=== PATIENT | male | born 1945 | race Caucasian/White ===

== ENCOUNTER → 2020-01-12 12:45 | Outpatient (CLI) | payer MEDICARE, SELFPAY ==
--- NOTE | 2020-01-12 12:49 | US_ITS ---
PROCEDURE: US THYROID CLINICAL INDICATION: THYROID NODULE COMPARISON: No exams were available for comparison FINDINGS: Right lobe: The right lobe is 3.4 x 1.2 x 1.2 cm and has an unremarkable appearance. Left lobe: Left lobe is 3.6 x 1.3 x 1.3 cm and contains a. 3 mm cyst Isthmus: Unremarkable Additional findings: Patient reports a palpable nodule in the right neck. This corresponds to a lymph node which measures 19 by 10 by 4mm. The mantle of the node does not appear thickened. IMPRESSION: Palpable nodule in the right neck corresponds to a 19 x 1 by 4 mm lymph node. There is a small left thyroid cyst. The thyroid gland has an otherwise unremarkable appearance Dictated b Haile Tamayo MD 01/12/2020 15:12 Haile Tamayo MD in [place] 01/12/2020 15:12
== END ==
PROVIDERS: PCP Family Medicine; Visit Provider Family Medicine
DX: E04.1 Nontoxic single thyroid nodule (principal)
CPT/HCPCS: 76536

== ENCOUNTER 2021-04-10 11:13 | Emergency (ER) | payer MEDICARE, SELFPAY ==
[2021-04-10] VITALS (10 sets, daily range): BP systolic 99–134; BP diastolic 59–78; PULSE 71–85; RESP 18; TEMP 37.1; O2SAT 93–96; BMI 22.3
--- NOTE | 2021-04-10 12:31 | XR_ITS ---
PROCEDURE: XR CHEST 2V CLINICAL HISTORY: cough COMPARISON: CT NECKW CT SOFT TISSUE NECK W/CONTRAST from 08/31/2015 CR CXR CHEST(2 VIEWS-NOT PORTABLE) from 09/05/2015 FINDINGS: The cardiomediastinal silhouette and pulmonary vascularity are within normal limits. There are chronic changes present. Increased markings are present in the lower lobes and in the right mid upper lung suggesting small areas of patchy infiltrate and/or atelectatic change. No acute bony abnormalities. IMPRESSION: Chronic changes with increased markings in the lower lobes and right midlung zone which could be due to superimposed atelectatic change or infiltrate. Dictated by: Haile Tamayo MD 04/10/2021 13:21 Haile Tamayo MD in [facility] 04/10/2021 13:21
[2021-04-10 12:45] LABS: Basophils # 0.1 K/mm3 (0-0.2); Basophils % 1.7 % (0.1-2.0); Eosinophils % 0.6 % (0.1-12.0); Hematocrit 45.2 % (42.0-52.0); Hemoglobin 14.9 g/dL (14.1-18.0); Lymphocytes # 0.9 K/mm3 (0.7-4.5); Lymphocytes % 22.2 % (10-50); Mean Corpuscular HGB Conc 32.9 g/dL (31.8-35.4); Mean Corpuscular Hemoglobin 33.3 pg (27.0-31.2); Mean Corpuscular Volume 101.2 fl (80-94); Monocytes # 0.5 K/mm3 (0.1-1.0); Monocytes % 11.9 % (1.7-9.3); Neutrophils # 2.6 K/mm3 (1.8-7.8); Neutrophils % 63.6 % (37.0-80.0); Platelet Count 210 K/mm3 (142-424); Red Blood Count 4.47 M/mm3 (4.60-6.20); Red Cell Distribution Width 15.9 % (11.5-17.5); White Blood Count 4.1 K/mm3 (4.8-10.8)
[2021-04-10 12:57] LABS: Chloride 96 mmol/L (98-107); Sodium 132 mmol/L (136-145)
[2021-04-10 12:58] LABS: Potassium 4.1 mmoL/L (3.5-5.1)
[2021-04-10 13:00] LABS: Alanine Aminotransferase 26 U/L (12-78); Albumin Level 3.8 g/dl (3.5-5.0); Albumin/Globulin Ratio 1.4 (1.1-1.8); Alkaline Phosphatase 99 U/L (38-126); Anion Gap 14.1 mEq/L (5-15); Aspartate Amino Transferase 45 U/L (17-59); Bilirubin,Total 0.8 mg/dl (0.2-1.3); Blood Urea Nitrogen 13 mg/dl (9-20); Calcium 8.5 mg/dl (8.4-10.2); Carbon Dioxide 26 mmol/L (22.0-30.0); Creatinine Clearance Estimated 66 mL/min (50-200); Estimated Glomerular Filt Rate 73 ml/min (>60); GFR (African American) 88 ML/MIN (>60); Globulin 2.7 g/dL (1.3-3.2); Glucose 107 mg/dl (74-100); Total Protein,Serum 6.5 g/dl (6.3-8.2)
--- NOTE | 2021-04-10 14:11 | HMH.EDGENADL ---
ED Disposition Clinical Impression: COVID-19 virus infection Disposition: Home, Self-Care Condition on Discharge: Fair Instructions: DI for COVID-19 (Suspected or Confirmed ) Additional Instructions: See Dr. Orantes in his office tomorrow at 11:30 AM. Outpatient monoclonal antibody therapy, you will be called for appointment. Return to the emergency department if any severe shortness of breath. COVID-19 Isolation: Isolate yourself for a MINIMUM of 10 days from onset of symptoms: What to do: Monitor your symptoms. If you have an emergency warning sign (including trouble breathing), seek emergency medical care immediately. Stay in a separate room from other household members, if possible. Use a separate bathroom, if possible. Avoid contact with other members of the household and pets. Don?t share personal household items, like cups, towels, and utensils. Wear a mask when around other people if able. You can be around others AFTER: 10 days since symptoms first appeared AND 24 hours with no fever without the use of fever-reducing medications AND Other symptoms of COVID-19 are improving Referrals: Michael Orantes MD [Primary Care Provider] - - Critical Care Critical Care Time: No Attestation: On 04/10/21, the high probability of a clinically significant, sudden or life threatening deterioration of the following system(s) required my full and direct attention, intervention and personal management. The time I documented below is in addition to time spent performing reported procedures but includes the following listed in this critical care notation. Medical Decision Making - Avtar Inquiry Pt receiving controlled substance: No Vital Signs: 04/10/21 12:00 04/10/21 12:13 04/10/21 12:30 Temperature 98.8 F Temperature Source Oral Pulse Rate 83 76 Pulse Rate [Right Radial] 85 Respiratory Rate 18 Blood Pressure 130/69 114/75 Blood Pressure [Right Arm] 130/69 Blood Pressure Mean 102 92 Blood Pressure Mean [Right Arm] 89 Blood Pressure Source [Right Arm] Automatic Cuff Blood Pressure Position [Right Arm] Sitting 02 Sat by Pulse Oximetry 94 L 93 L 95 Oxygen Delivery Method Room Air 04/10/21 13:00 04/10/21 13:30 04/10/21 14:00 Temperature Temperature Source Pulse Rate 76 76 77 Pulse Rate [Right Radial] Respiratory Rate Blood Pressure 115/71 124/71 125/72 Blood Pressure [Right Arm] Blood Pressure Mean 85 92 91 Blood Pressure Mean [Right Arm] Blood Pressure Source [Right Arm] Blood Pressure Position [Right Arm] 02 Sat by Pulse Oximetry 95 95 94 L Oxygen Delivery Method 04/10/21 14:30 04/10/21 15:30 04/10/21 16:00 Temperature Temperature Source Pulse Rate 76 75 71 Pulse Rate [Right Radial] Respiratory Rate Blood Pressure 134/75 103/64 L 99/59 L Blood Pressure [Right Arm] Blood Pressure Mean 94 71 73 Blood Pressure Mean [Right Arm] Blood Pressure Source [Right Arm] Blood Pressure Position [Right Arm] 02 Sat by Pulse Oximetry 96 93 L 95 Oxygen Delivery Method - Lab Data Lab Results 04/10/21 12:30: WBC 4.1 L, RBC 4.47 L, Hgb 14.9, Hct 45.2, MCV 101.2 H, MCH 33.3 H, MCHC 32.9, RDW 15.9, Plt Count 210, MPV 9.0, Neut % (Auto) 63.6, Lymph % (Auto) 22.2, [place] % (Auto) 11.9 H, Eos % (Auto) 0.6, Baso % (Auto) 1.7, Neut # (Auto) 2.6, Lymph # (Auto) 0.9, [place] # (Auto) 0.5, Eos # (Auto) 0.0, Baso # (Auto) 0.1 04/10/21 12:30: Sodium 132 L, Potassium 4.1, Chloride 96 L, Carbon Dioxide 26, Anion Gap 14.1, BUN 13, Creatinine 1.00, Estimated Creat Clear 66, Estimated GFR 73, Est GFR ( Amer) 88, Glucose 107 H, Calcium 8.5, Total Bilirubin 0.8, AST 45, ALT 26, Alkaline Phosphatase 99, Total Protein 6.5, Albumin 3.8, Globulin 2.7, Albumin/Globulin Ratio 1.4 04/10/21 12:30: Troponin I < 0.01 04/10/21 12:30: Lipase 103 04/10/21 14:25: Lactate 0.8 04/10/21 14:25: SARS-CoV-2 (PCR) Detected A, Influenza A Untype (PCR
--- NOTE | 2021-04-10 14:25 | CT_ITS ---
PROCEDURE: CT HEAD/BRAIN WO CON CLINICAL INDICATION: gait instability COMPARISON: No exams were available for comparison TECHNIQUE: Axial images obtained. All CT scans at the facility use one or more dose reduction, viz: automated exposure control, ma/kV adjustment per patient size (including targeted exams where dose is matched to indication, i.e. head), or iterative reconstruction technique. FINDINGS: No midline shift, mass effect, intracranial hemorrhage, hydrocephalus, or extra-axial fluid collection is evident. There is generalized atrophy with hypoattenuation of the periventricular white matter consistent with microangiopathic changes.. Old lacunar infarction involves the subinsular region on the left the calvarium has an unremarkable appearance. No mastoid effusion. Mucosal thickening involves the maxillary and ethmoid sinuses. There is a tiny air-fluid level in the sphenoid sinus. IMPRESSION: 1. No acute intracranial findings. 2. 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 3. Mild sinus disease Dictated by: Haile Tamayo MD 04/10/2021 15:38 Haile Tamayo MD in [place] 04/10/2021 15:38
--- NOTE | 2021-04-10 14:27 | CT_ITS ---
PROCEDURE: CT ABDOMEN PELVIS W CON CLINICAL INDICATION: abdo discomfort COMPARISON: CR XR CHEST 2V from 04/10/2021 TECHNIQUE: IV Contrast: 75ML Isovue 370 Oral Contrast None Axial images obtained with sagittal and coronal reformats. All CT scans at the facility use one or more dose reduction, viz: automated exposure control, ma/kV adjustment per patient size (including targeted exams where dose is matched to indication, i.e. head), or iterative reconstruction technique. FINDINGS: LOWER THORAX: There is coarsening of the interstitial markings patchy subsegmental areas of infiltrate in lung bases posteriorly ABDOMEN & PELVIS: The liver, gallbladder, spleen, adrenal glands, and pancreas have an unremarkable appearance. No renal or ureteral calculi. No hydronephrosis. No evidence of appendicitis or diverticulitis. There are few colonic diverticula. There is thickening of the urinary bladder wall. There is mild fusiform dilatation of the infrarenal abdominal aorta at the aortic bifurcation measuring 2.8 cm transverse. There is dilatation of the proximal aspect of the left common iliac artery at 1.7 cm. Degenerative disc disease L4-5. There is mild loss of height anteriorly of L1 age indeterminate without retropulsion. IMPRESSION: 1. Coarsening of the interstitial lung markings with patchy subsegmental areas of infiltrate in the lung bases. 2. No acute abdominal or pelvic findings. 3. Mild dilatation of the infrarenal abdominal aorta of 2.8 cm and proximal left common iliac artery of 1.7 cm 4. Minimal wedging L1 age indeterminate Dictated by: Haile Tamayo MD 04/10/2021 15:46 Haile Tamayo MD in [facility] 04/10/2021 15:46
[2021-04-10 14:34] LABS: Influenza A, PCR Not Detected (NotDetected); Influenza B, PCR Not Detected (NotDetected)
[2021-04-10 14:37] LABS: Lipase 103 U/L (23-300)
[2021-04-10 14:38] LABS: Microscopic, Urine URINE MICROSCOPIC (MICROSCOPIC)
[2021-04-10 14:41] LABS: Appearance,Urine CLEAR (Clear); Bilirubin,Urine Negative (Negative); Blood, Urine Negative (Negative); Color,Urine YELLOW (Yellow); Glucose,Urine (UA) Negative (Negative); Ketones,Urine Negative (Negative); Leukocyte Esterase,Urine Negative (Negative); Nitrate,Urine Negative (Negative); Protein,Urine Negative (Negative); Specific Gravity, Urine 1.025 (1.005-1.030); Urobilinogen,Urine 0.2 EU/dl (0.2)
[2021-04-10 14:52] LABS: Lactic Acid 0.8 mmol/L (0.7-2.1)
[2021-04-10 14:53] LABS: Troponin I < 0.01 ng/ml (0.00-0.034)
[2021-04-10 15:05] LABS: Bacteria,Urine 2+ /lpf; RBC,Urine Occasional #/hpf (0-3); Squamous Epithelial Cell,Urine Occasional #/hpf (0-5); WBC,Urine Occasional #/hpf (0-3)
[2021-04-10 15:06] LABS: Coronavirus 19, PCR Detected (NotDetected)
--- NOTE | 2021-04-10 16:43 | ECG_ITS ---
APPROVED REPORT Exam: Resting ECG HR:77 bpm ECG Measurements Heart Rate 77 AXES DE 220 P 57 QRSd 104 QRS -52 QT 396 T 54 QTc 448 Conclusion Sinus rhythm with 1st degree AV block Left anterior fascicular block Abnormal ECG Electronically signed by : Michael Petersen MD 04/13/2021 13:55:31
--- NOTE | 2021-04-10 16:57 | PC.NURSE ---
pt given scheduled time for antibody infusion for Tomorrow 04/11/21 at 11 am, information given to pt .
== END 2021-04-10 17:22 | disposition home or self-care (01) ==
PROVIDERS: Emergency Provider Emergency Medicine; PCP Family Medicine
DX: U07.1 COVID-19 (principal)
CPT/HCPCS: 70450; 71046; 74177; 80053; 81001; 83605; 83690; 84484; 85025; 87040; 87077; 87086; 87186; 93005; 96374; 99284; C9803; Q9967; U0003; U0005

== ENCOUNTER → 2022-04-09 10:39 | Outpatient (CLI) | payer MEDICARE, SELFPAY ==
--- NOTE | 2022-04-09 | ECG_ITS ---
APPROVED REPORT Exam: Resting ECG HR:59 bpm ECG Measurements Heart Rate 59 AXES ME 230 P 64 QRSd 111 QRS 12 QT 432 T 37 QTc 430 Conclusion SINUS BRADYCARDIA WITH FIRST DEGREE AV BLOCK Late R wave progression, previously noted ABNORMAL ECG UNCONFIRMED REPORT Electronically signed by : Michael Petersen MD 04/09/2022 18:07:27
[2022-04-09 11:22] LABS: Basophils # 0.2 K/mm3 (0-0.2); Eosinophils # 0.3 K/mm3 (0.0-0.4); Eosinophils % 4.3 % (0.1-12.0); Hematocrit 49.5 % (42.0-52.0); Hemoglobin 15.2 g/dL (14.1-18.0); Lymphocytes # 1.5 K/mm3 (0.7-4.5); Lymphocytes % 23.3 % (10-50); Mean Corpuscular HGB Conc 30.8 g/dL (31.8-35.4); Mean Corpuscular Hemoglobin 32.4 pg (27.0-31.2); Mean Corpuscular Volume 105.4 fl (80-94); Mean Platelet Volume 8.4 fl (7.4-10.4); Monocytes # 0.6 K/mm3 (0.1-1.0); Monocytes % 9.5 % (1.7-9.3); Platelet Count 265 K/mm3 (142-424); Red Cell Distribution Width 16.7 % (11.5-17.5); White Blood Count 6.6 K/mm3 (4.8-10.8)
[2022-04-09 12:03] LABS: Chloride 100 mmol/L (98-107); Potassium 4.8 mmoL/L (3.5-5.1); Sodium 143 mmol/L (136-145)
[2022-04-09 12:05] LABS: Alanine Aminotransferase 25 U/L (12-78); Alkaline Phosphatase 123 U/L (38-126); Aspartate Amino Transferase 38 U/L (17-59); Bilirubin,Total 0.9 mg/dl (0.2-1.3); Blood Urea Nitrogen 10 mg/dl (9-20); Estimated Glomerular Filt Rate 82 ml/min (>60); GFR (African American) 99 ML/MIN (>60)
[2022-04-09 12:06] LABS: Albumin Level 4.5 g/dl (3.5-5.0); Albumin/Globulin Ratio 1.6 (1.1-1.8); Anion Gap 15.8 mEq/L (5-15); Calcium 9.6 mg/dl (8.4-10.2); Carbon Dioxide 32 mmol/L (22.0-30.0); Globulin 2.8 g/dL (1.3-3.2); Glucose 103 mg/dl (74-100); Total Protein,Serum 7.3 g/dl (6.3-8.2)
== END ==
PROVIDERS: PCP Family Medicine; Visit Provider Family Medicine
DX: Z01.818 Encounter for other preprocedural examination (principal)
CPT/HCPCS: 36415; 80053; 85025; 93005

== ENCOUNTER → 2023-03-03 16:24 | Outpatient (CLI) | payer MEDICARE, SELFPAY ==
--- NOTE | 2023-03-03 16:29 | XR_ITS ---
PROCEDURE INFORMATION: Exam: XR Left Shoulder Exam date and time: 03/03/2023 4:31 PM Age: 77 years old Clinical indication: Pain; Shoulder; Left; Additional info: Lt shoulder pain TECHNIQUE: Imaging protocol: Radiologic exam of the left shoulder. Views: 2 or more views. COMPARISON: CR XR CHEST 2V 04/10/2021 12:31 PM FINDINGS: Bones/joints: Postsurgical changes are seen involving the left shoulder joint. No evidence of hardware complication. Lungs: Mild interstitial opacities are noted in the left lung. Soft tissues: Normal. IMPRESSION: Postsurgical changes are seen involving the left shoulder joint. No evidence of hardware complication.
== END ==
PROVIDERS: PCP Family Medicine; Visit Provider Family Medicine
DX: M25.512 Pain in left shoulder (principal)
CPT/HCPCS: 73030

== ENCOUNTER 2023-06-23 12:38 | Outpatient (CLI) | payer MEDICARE, SELFPAY ==
--- NOTE | 2023-06-23 12:44 | XR_ITS ---
FINAL REPORT TECHNIQUE: Chest PA & Lateral CLINICAL HISTORY: COUGH,PNEUMONIA COMPARISON: 04/10/2021 FINDINGS: 2 views of the chest were performed. The heart size is normal. The mediastinum is within normal limits. There are coarse interstitial opacities identified bilaterally, likely related to the chronic fibrosis, slightly accentuated by the expiratory appearance of this film. There are no pleural effusions. There is no pneumothorax. The bony thorax appears intact. A left shoulder replacement is present. IMPRESSION: Coarse interstitial opacities, likely related to chronic fibrosis. Reviewed, Interpreted and Dictated by Rao Lerma MD Transcribed by Nadeen Devlin Authenticated and . [facility]
== END 2023-06-23 23:59 ==
LOC: RAD 12:40
PROVIDERS: PCP Family Medicine; Visit Provider Family Medicine
DX: R05.2 Subacute cough (principal); J18.9 Pneumonia, unspecified organism
CPT/HCPCS: 71046

== ENCOUNTER 2023-08-15 16:38 | Emergency (ER) | payer MEDICARE, SELFPAY ==
[2023-08-15 16:55] VITALS: BP 126/69; PULSE 86; RESP 22; TEMP 36.9; O2SAT 93; BMI 26.6
[2023-08-15 17:22] LABS: UTC Strep Screen (Rapid) Positive (Negative)
--- NOTE | 2023-08-15 17:31 | ED_ITS ---
Discharge Plan Disposition Patient Disposition: Home, Self-Care Condition: Good Prescriptions Prescriptions: New azithromycin [Zithromax Z-Erickson] 250 mg tablet See Rx Instructions .ROUTE .COMPLEX 5 Days Qty: 6 0RF Rx Instructions: For 250 mg dose pack: take 500 mg today (day 1), then 250 mg for 4 days (days 2-5) cefdinir 300 mg capsule 300 mg PO BID Qty: 20 0RF benzonatate 100 mg capsule 100 mg PO TID PRN (Reason: cough) Qty: 20 0RF No Action methotrexate sodium 2.5 MG tablet 2.5 mg PO DIRECTED folic acid 1 MG tablet 1 mg PO DIRECTED etodolac 400 MG tablet 400 mg PO BID pravastatin 20 MG tablet 20 mg PO HS omeprazole 20 MG tablet,delayed release (DR/EC) 20 mg PO DAILY niacin 500 MG tablet extended release 500 mg PO DAILY duloxetine 60 MG capsule, delayed rel sprinkle 60 mg PO DAILY Referrals Follow up/Referrals: Osman Minor MD [Primary Care Provider] - See instructions Activity Restrictions/Add. Instructions Additional Instructions/Restrictions: *Monitor Temp, Over the counter Motrin or Tylenol as directed/as needed Tylenol every 4 hours and Motrin every 6 hours (as long as your family doctor has told you that you can take it) for fever or pain. and straight to ER if unable to lower temp less than 101.0 after medication given Push fluids to drink, Popsicles may help to soothe the throat *Warm fluids like tea with honey may help to soothe the throat? *Sleep elevated? *Humidifier/Vaporizer * *If you did not take Penicillin shot or was unable to, start taking antibiotic immediately and make sure that you take it for the FULL length of time although you should start to feel better in 24-48 hours *change toothbrush and toothpaste 24-48 hours after starting to take antibiotics so you do not reinfect yourself Monitor Temp. Tylenol and/or Ibuprofen as needed. ER if fever is no less than 101 despite alternating Tylenol and Ibuprofen * Encourage fluids, water, Gatorade, powerade, pedialyte if infant/toddler/or child *Cold fluids, popsicles and ice cream may feel good on his throat Follow up IMMEDIATELY for new or worsening symptoms or no Noticeable improvement over the next 48-72 hours. 911 for difficulty breathing or swallowing Clinical Impressions Clinical Impression: Strep throat Instructions Patient Instructions: Strep Throat, DI for Strep Throat Discharge ED Provider: Jennifer Tello [facility] HPI General Stated complaint: Cough,weakness,poor appitite,fever Mode of Arrival: Ambulatory Source of Information: Patient Limitations: No Limitations Time Seen by Provider: 08/15/23 17:31 Description of Symptoms (Recalled from Triage Doc. by RN): PATIENT C/O COUGH, NO ENERGY, DECREASED APPETITE, FEVER, AND TROUBLE SLEEPING FOR WEEKS HEENT Symptoms (Recalled from RN notes): Yes Resp Symptoms (Recalled from RN notes): Yes Skin Symptoms (Recalled from RN notes): No MS Symptoms (Recalled from RN notes): No Functional Status (Recalled from RN notes): WNL History of Present Illness Provider Complaint: Father states that he hasnt felt well on and off for a couple of weeks and has been restless States that he has had a dry cough and for the last couple of days and not as active as he normally is When ask if anything was bothering him he says no wanna go home Related Data Home Medications Medication Instructions Recorded Confirmed duloxetine 60 mg capsule,delayed 60 mg PO DAILY . 04/10/21 04/10/21 release sprinkle etodolac 400 mg tablet 400 mg PO BID . 04/10/21 04/10/21 folic acid 1 mg tablet 1 mg PO DIRECTED . 04/10/21 04/10/21 methotrexate sodium 2.5 mg tablet 2.5 mg PO DIRECTED Arthritis 04/10/21 04/10/21 niacin 500 mg tablet,extended 500 mg PO DAILY . 04/10/21 04/10/21 release omeprazole 20 mg tablet,delayed 20 mg PO DAILY stomach 04/10/21 04/10/21 release pravastatin 20 mg tablet 20 mg PO HS Cholesterol 04/10/21 04/10/21 Previous Rx's Medication Instructions Recorded azithromycin 250 mg tablet See Rx Instructions PO .COMPLEX 5 08/15/23 (Zithromax Z-Erickson) days #6 tabs benzonatate 100 mg capsule 100 mg PO TID PRN cough #20 caps 08/15/23 cefdinir 300 mg capsule 300 mg PO BID #20 caps 08/15/23 Allergies Allergy/AdvReac Type Severity Reaction Status Date / Time No Known Drug Allergies Allergy Unknown Verified 08/15/23 17:15 [NO KNOWN DRUG ALLERGIES] Worker's Comp Is this a Worker's Comp case?: No [facility] Disclaimer: The information contained in this section may have been updated after the patient was seen, as this information can be updated by other users. Social History Smoking Status: Unknown if ever smoked alcohol intake: never current occupational status: retired Travel in the last 8 weeks: None ROS Obtained: Yes All systems reviewed & no additional complaints except as documented and Yes Systems reviewed as appropriate & no additional complaints except as documented Constitutional Constitutional: Reports system reviewed and no additional complaints, except as documented, Reports as per HPI, Reports fatigue, Reports fever(s) and Reports poor appetite ENT Ears, Nose, Mouth, and Throat: Reports system reviewed and no additional complaints, except as documented and Reports as per HPI Cardiovascular Cardiovascular: Reports system reviewed and no additional complaints, except as documented and Reports as per HPI Respiratory Respiratory: Reports system reviewed and no additional complaints, except as documented, Reports as per HPI, Denies shortness of breath, Denies chest congestion and Reports cough Gastrointestinal Gastrointestingal: Reports system reviewed and no additional complaints, except as documented and as per HPI Endocrine Endocrine: Reports fatigue Physical Exam General General appearance: alert and in no apparent distress Expanded ENT Exam Nose exam: Absent sinus tenderness Throat exam: Present tonsillar erythema Respiratory Respiratory exam: Present normal lung sounds bilaterally and other (mild rhonci noted right lower); Absent respiratory distress, wheezes or accessory muscle use Cardiovascular Cardiovascular exam: Present regular rate, normal rhythm and normal heart sounds Neurological Exam Neurological exam: Present alert and oriented X3 Medical Decision Making Avtar Inquiry Pt receiving controlled substance: No Avtar was queried for this patient: No Vital Signs: 08/15/23 16:55 Temperature 98.4 F Temperature Source Oral Pulse Rate [Left Brachial] 86 Respiratory Rate 22 Blood Pressure [Left Arm] 126/69 Blood Pressure Mean [Left Arm] 88 Blood Pressure Source [Left Arm] Automatic Cuff Blood Pressure Position [Left Arm] Sitting 02 Sat by Pulse Oximetry 93 L Oxygen Delivery Method Room Air Lab Data Lab results reviewed: Yes I reviewed the patient's lab results. Lab Results 08/15/23 17:16: Strep Scn Rapid Clinic Positive A Medical Decision Narrative: Upon examining patient he took a drink of the water he was drinking and noticed he flinched and acted like his throat hurt, when asked he said no wanted to go home Daughter talked with patient and he agreed to have strep test and it was positive, Daughter concerned he had Pneumonia in [place] discussed transfer to the ED for further work up and evaluation due to patient had to be convinced to come in and where he hasnt been eating and drinking well she thought if he was over here and we sent him over he would go and patient declined again said he wanted to go home, Patient aware of place and people around him drinking water and ws codi mace Discussed again with patient about CXR and further lab work up and he declined and started getting up out of the wheelchair to go home Discussed with daughter patient is drinking water and gatoraid and patient refusing to go to the ED at this time and furhter work up patient is adamant that he is going home Spoke with Pharmacy will start patient on Cefdnir and azithromycin and given strict return instructions to the ED and make sure to push fluids to drink
[2023-08-15 17:32] VITALS: BP 126/69; PULSE 86; RESP 22; TEMP 36.9; O2SAT 94
== END 2023-08-15 17:54 | disposition home or self-care (01) ==
PROVIDERS: Emergency Provider Nurse Practitioner; PCP Family Medicine
DX: J02.0 Streptococcal pharyngitis (principal); R05.9 Cough, unspecified; R53.83 Other fatigue; R50.9 Fever, unspecified; G47.00 Insomnia, unspecified
CPT/HCPCS: 87880; 99204; 99212; G0463

== ENCOUNTER 2023-11-14 12:42 | Outpatient (CLI) | payer MEDICARE, SELFPAY ==
--- NOTE | 2023-11-14 12:55 | CT_ITS ---
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 Coronal reformatted images were also obtained. This study was performed with techniques to keep radiation doses as low as reasonably achievable, (ALARA). Individualized dose reduction techniques using automated exposure control or adjustment of mA and/or KV according to the patient's size were employed. There are multiple mildly enlarged mediastinal nodes which are nonspecific but favored to be reactive. There is no evidence of mediastinal mass. No axillary mass or adenopathy is identified. On lung window images, no pulmonary mass or dominant pulmonary nodule is identified. There is moderate fibrosis/scarring. Bilateral pulmonary alveolar opacities are noted, greatest in the lung bases, which likely represent pneumonia or edema. Limited images of the upper abdomen reveal no mass or localized inflammatory process. IMPRESSION: Bilateral pulmonary alveolar opacities, likely pneumonia or edema. Moderate fibrosis/scarring. Multiple mildly enlarged mediastinal nodes, favor reactive. Reviewed, Interpreted and Dictated by Kuldip Travis III, MD Transcribed by Luisa Aguilar Authenticated and [facility]
[2023-11-14] MEDS: IOPAMIDOL-370 (76%);100ML BOTTLE 75 ML IV (13:39)
[2023-11-14] MEDS: SODIUM CHLORIDE 0.9% 10ML SYR (RAD ONLY) 10 ML IV (13:39)
== END 2023-11-14 23:59 | disposition home or self-care (01) ==
LOC: RAD 12:43
PROVIDERS: PCP Family Medicine; Visit Provider Family Medicine
DX: R05.3 Chronic cough (principal); Z79.899 Other long term (current) drug therapy
CPT/HCPCS: 71260; Q9967

== ENCOUNTER 2023-11-26 09:21 | Outpatient (CLI) | payer MEDICARE, SELFPAY ==
--- NOTE | 2023-11-26 | CA_ITS ---
APPROVED REPORT EXAM: Comprehensive 2D, Doppler, and color-flow Echocardiogram Fly Maker: Sherlyn Preciado CRT Ht: 6 ft 0 in Wt: 165lbs BSA: 1.96 BP: 140/86 mmHg Indications: Shortness of Breath, Fatigue, Hyperlipidemia, Hypertension/HDD, pulmonary edema, hx covid 19 2D Dimensions LA Volume 32.60 mL M-Mode Dimensions RVDd 2.81 cm (0.9-2.6) LA Diam 2.98 cm (1.9-4.0) LVDd 4.11 cm (3.5-5.7) LVDs 2.64 cm (3.5-5.7) IVSd 1.77 cm (0.6-1.1) PWd 0.84 cm (0.6-1.1) EF (Teich) 65.70% FS 35.80% EDV (Teich) 74.70 mL TAPSE 2.38 (<1.7) ESV (Teich) 25.60 mL LV Diastology E Decel Time 127 (160-240 msec) E/A Ratio 0.65 MED A' 13.50 cm/s LAT A' 19.30 cm/s Aortic Valve AO Peak GR. 6.20 mmHg Mitral Valve MV A Velocity 65.0 (40-130 cm/s) E/A Ratio 0.65 Pulmonary Valve PV Peak Velocity 120.0 (50-150 cm/s) Tricuspid Valve TR P. Velocity 276.00 cm/s RAP Estimate 10.00 mmHg RVSP 40.50 mmHg Left Ventricle The left ventricle is normal size. The left ventricular systolic function is normal. The left ventricular ejection fraction is within the normal range. There is increased LV wall thickness. There is normal LV segmental wall motion. Transmitral Doppler flow pattern suggests impaired LV relaxation. LVEF is 55%. Right Ventricle The right ventricle is normal size. The right ventricular systolic function is normal. Atria The left atrium size is normal. The right atrium size is normal. There is no Doppler evidence of interatrial shunt. Aortic Valve The aortic valve is mildly thickened. There is no aortic valvular stenosis. Trace aortic regurgitation. Mitral Valve The mitral valve leaflets are mildly thickened. No evidence of mitral valve stenosis. Mild mitral regurgitation. Tricuspid Valve The tricuspid valve leaflets are thin and pliable. Mild tricuspid regurgitation. RVSP is 25 to 30 mmHg. Pulmonic Valve The pulmonary valve is normal in structure. Trace pulmonic regurgitation. Great Vessels The aortic root is normal in size. The ascending aorta is normal in size. IVC is normal in size and collapses >50% with inspiration. Pericardium There is no pericardial effusion. Other Information Study Quality: Fair Conclusion Normal biventricular systolic function. Mild MR, mild TR. Electronically signed by : Sonia Bryant MD 11/30/2023 16:47:00
== END 2023-11-26 23:59 | disposition home or self-care (01) ==
LOC: RT 09:22
PROVIDERS: PCP Family Medicine; Visit Provider Family Medicine
DX: R06.02 Shortness of breath (principal); R05.3 Chronic cough; J81.1 Chronic pulmonary edema
CPT/HCPCS: 93306

== ENCOUNTER 2023-12-18 14:14 | Outpatient (CLI) | payer MEDICARE, SELFPAY ==
[2023-12-18 14:55] LABS: Basophils # 0.1 K/mm3 (0-0.2); Basophils % 1.5 % (0.1-2.0); Eosinophils # 0.4 K/mm3 (0.0-0.4); Eosinophils % 6.9 % (0.1-12.0); Hematocrit 41.2 % (42.0-52.0); Hemoglobin 15.1 g/dL (14.1-18.0); Lymphocytes # 1.1 K/mm3 (0.7-4.5); Lymphocytes % 21.9 % (10-50); Mean Corpuscular HGB Conc 36.7 g/dL (31.8-35.4); Mean Corpuscular Hemoglobin 41.1 pg (27.0-31.2); Mean Platelet Volume 7.9 fl (7.4-10.4); Monocytes # 0.2 K/mm3 (0.1-1.0); Neutrophils # 3.4 K/mm3 (1.8-7.8); Neutrophils % 66.7 % (37.0-80.0); Platelet Count 262 K/mm3 (142-424); Red Blood Count 3.68 M/mm3 (4.60-6.20); Red Cell Distribution Width 17.7 % (11.5-17.5); White Blood Count 5.2 K/mm3 (4.8-10.8)
[2023-12-18 15:16] LABS: Alanine Aminotransferase 39 U/L (12-78); Albumin Level 3.9 g/dl (3.5-5.0); Albumin/Globulin Ratio 1.3 (1.1-1.8); Alkaline Phosphatase 134 U/L (38-126); Anion Gap 12.5 mEq/L (5-15); Aspartate Amino Transferase 54 U/L (17-59); Bilirubin,Total 0.8 mg/dl (0.2-1.3); Blood Urea Nitrogen 18 mg/dl (9-20); Calcium 9.3 mg/dl (8.4-10.2); Carbon Dioxide 27 mmol/L (22.0-30.0); Chloride 104 mmol/L (98-107); Estimated Glomerular Filt Rate 72 ml/min (>60); GFR (African American) 87 ML/MIN (>60); Glucose 95 mg/dl (74-100); Potassium 4.5 mmoL/L (3.5-5.1); Sodium 139 mmol/L (136-145); Total Protein,Serum 6.9 g/dl (6.3-8.2); Uric Acid 2.9 mg/dl (3.5-8.5)
[2023-12-18 15:21] LABS: C-Reactive Protein 7.2 mg/L (0-4)
[2023-12-18 15:52] LABS: Erythrocyte Sedimentation Rate 21 mm/hr (0-20)
[2023-12-20 10:23] LABS: RA Latex Turbid. 321.5 IU/mL (<14.0)
[2023-12-20 13:38] LABS: Anti-Cyclic Citrullinated Pept 14 units (0-19)
[2023-12-22 15:03] LABS: Antinuclear Antibodies, IFA Negative (.)
[2023-12-22 15:10] LABS: Cytoplasmic (C-ANCA) <1:20 titer (Neg:<1:20); Perinuclear (P-ANCA) <1:20 titer (Neg:<1:20)
[2024-01-19 15:15] LABS: Antinuclear Antibodies (ANA) Negative
== END 2023-12-18 23:59 | disposition home or self-care (01) ==
LOC: LAB 14:15
PROVIDERS: PCP Family Medicine; Visit Provider Internal Medicine Pulmonary Disease
DX: J84.9 Interstitial pulmonary disease, unspecified (principal); I27.20 Pulmonary hypertension, unspecified; R06.09 Other forms of dyspnea; J45.909 Unspecified asthma, uncomplicated
CPT/HCPCS: 36415; 80053; 84550; 85025; 85651; 86038; 86140; 86200; 86225; 86235; 86256; 86431

== ENCOUNTER 2024-02-17 12:35 | Outpatient (CLI) | payer MEDICARE, SELFPAY ==
--- NOTE | 2024-02-17 13:48 | CT_ITS ---
FINAL REPORT TECHNIQUE: Axial images through the chest were performed by computed tomography. This study was performed with techniques to keep radiation doses as low as reasonably achievable, (ALARA). Individualized dose reduction techniques using automated exposure control or adjustment of mA and/or kV according to the patient's size were employed. CLINICAL HISTORY: .SOA , NODULE HIGH RESOLUTION X 3 COMPARISON: 11/14/2023 FINDINGS: The exam was performed as a high-resolution examination. There is extensive honeycombing in the lung bases and coarse opacities in the peripheries of both lungs consistent with chronic pulmonary fibrosis. Expiratory images do not reveal any evidence of air trapping. Prone inspiratory films reveal that the coarse interstitial opacities and honeycombing persist, consistent with chronic pulmonary fibrosis. The heart size is normal. There is no pericardial or pleural effusion. Limited images of the upper abdomen are unremarkable. No suspicious infiltrate or nodule identified. There has been no significant change in overall appearance of the lung osborn since the prior CT of 11/14/2023. IMPRESSION: Extensive honeycombing in the lung bases and coarse opacities in the periphery of both lungs, as described above, consistent with chronic pulmonary fibrosis. There has been no change since the prior CT of 11/14/2023. Reviewed, Interpreted and Dictated by Rao Lerma MD Transcribed by Nadeen Devlin Authenticated and . [facility]
== END 2024-02-17 23:59 | disposition home or self-care (01) ==
LOC: RT 12:36
PROVIDERS: PCP Family Medicine; Visit Provider Internal Medicine Pulmonary Disease
DX: J84.9 Interstitial pulmonary disease, unspecified (principal); R06.09 Other forms of dyspnea
CPT/HCPCS: 71250; 94060; 94618; 94726; 94729

== ENCOUNTER 2024-03-01 10:42 | Day surgery (SDC) | payer MEDICARE, SELFPAY ==
[2024-02-26 10:32] VITALS: BMI 23.3
[2024-03-01] VITALS (8 sets, daily range): BP systolic 120–157; BP diastolic 64–77; PULSE 64–69; RESP 16–18; TEMP 36.2–36.3; O2SAT 93–97
[2024-03-01] MEDS: LACTATED RINGERS 1000ML 1,000 ML 25 ML IV (11:10)
[2024-03-01 11:15] LABS: Chloride 103 mmol/L (98-107); Potassium 3.8 mmoL/L (3.5-5.1); Sodium 140 mmol/L (136-145)
[2024-03-01 11:18] LABS: Anion Gap 10.8 mEq/L (5-15); Blood Urea Nitrogen 13 mg/dl (9-20); Calcium 9.3 mg/dl (8.4-10.2); Carbon Dioxide 30 mmol/L (22.0-30.0); Creatinine Clearance Estimated 65 mL/min (50-200); Estimated Glomerular Filt Rate 72 ml/min (>60); GFR (African American) 87 ML/MIN (>60); Glucose 101 mg/dl (74-100)
[2024-03-01 11:34] LABS: Basophils # 0.1 K/mm3 (0-0.2); Basophils % 1.2 % (0.1-2.0); Eosinophils # 0.3 K/mm3 (0.0-0.4); Eosinophils % 5.6 % (0.1-12.0); Hematocrit 47.5 % (42.0-52.0); Lymphocytes # 1.5 K/mm3 (0.7-4.5); Lymphocytes % 24.7 % (10-50); Mean Corpuscular HGB Conc 31.5 g/dL (31.8-35.4); Mean Corpuscular Hemoglobin 35.8 pg (27.0-31.2); Mean Corpuscular Volume 113.7 fl (80-94); Mean Platelet Volume 7.7 fl (7.4-10.4); Monocytes # 0.3 K/mm3 (0.1-1.0); Neutrophils % 64.4 % (37.0-80.0); Platelet Count 247 K/mm3 (142-424); Red Blood Count 4.18 M/mm3 (4.60-6.20); Red Cell Distribution Width 17.2 % (11.5-17.5); White Blood Count 6.1 K/mm3 (4.8-10.8)
--- NOTE | 2024-03-01 13:03 | P.PNANES_ITS ---
[facility] Disclaimer: The information contained in this section may have been updated after the patient was seen, as this information can be updated by other users. Medical History History of basal cell carcinoma Dyspnea on exertion ILD (interstitial lung disease) Fibrosis of lung Surgical History History of ear surgery History of shoulder surgery Family History Other Cancer Heart attack Social History (Updated 03/01/24 @ 10:55 by Brigida Shabazz RN) Smoking Status: Former smoker alcohol intake: never substance use type: denies use current occupational status: retired Travel in the last 8 weeks: None caffeine: Yes [facility] Anesthesia Checklist Patient Identification Patient Identification: Verbal (Name & ) Structural Data Admitted From: Home Planned Operative Procedure/s: bronchoscopy Consent for Planned Operative Procedure(s) Verified: Yes NPO Status Verified Time NPO: 00:00 Airway Assessment Mallampati Score:: Class III C-Spine Mobility Assessed: Yes TMJ Mobility Assessed: Yes Dentition: Good Dentition Neurological Assessment Level of Consciousness: Awake, Alert and Appropriate Anesthesia Plan Anesthesia Risk discussed: Yes Anesthesia Plan: Verified ASA Class: II Anesthesia Type: General
--- NOTE | 2024-03-01 14:23 | XR_ITS ---
FINAL REPORT CLINICAL HISTORY: bronch 3.2 min 47.37 mGy COMPARISON: None FINDINGS: FLUOROSCOPY LESS THAN 1 HOUR HISTORY: FINDINGS: Fluoroscopic guidance was provided for bronchoscopy. A single spot film was obtained. 3.2 minutes of fluoroscopy time were used, with dosage 47.37 mGy. IMPRESSION: As above. Reviewed, Interpreted and Dictated by Roa Lerma MD Transcribed by Nadeen Devlin Authenticated and [facility]
--- NOTE | 2024-03-01 14:33 | EXP.BRONCH.N ---
Procedure: Date: 03/01/24 Patient Date of :: 1945 Procedure Performed:: Bronchoscopy with airway examination bronchoalveolar lavage and transbronchial lung biopsy Indications:: Interstitial lung disease Performing Provider:: Awais Macdonald MD Referring Provider:: Dr: Osman Minor MD Sedation:: General anesthesia Procedure:: Bronchoscopy airway examination, bronchoalveolar lavage and transbronchial lung biopsy: A clean THERAPEUTIC bronchoscopy was advanced through the ET tube and airways were examined up to subsegmental bronchi. Airways appeared grossly normal, no evidence of mucoid secretions, mucous plugging active bleeding/old blood clots noted. Bronchoalveolar lavage was performed in the RIGHT LOWER LOBE with instillation of 60 cc normal saline with return of 25 cc back. BAL fluid was sent for cell count and differential along with bacterial fungal and AFB stain and cultures. Transbronchial biopsy was performed in the RIGHT LOWER LOBE with a total of 7 biopsies performed, 5 biopsy specimens were sent in formalin for cytopathologic examination. The other 2 biopsy samples, were sent one each in two separate normal saline specimen cups for bacterial fungal and AFB stain cultures. Special request was also made for the pathologist to evaluate for AFB and fungal organisms on the cytopathologic examination. Patient tolerated the procedure with no immediate acute complications. We will follow the patient in pulmonary clinic in 7 to 10 days. Findings:: Please see the procedure note Recommendations:: Postoperative bronchoscopy instructions Follow in pulmonary clinic in 5 to 7 days Complications:: No acute immediate complication Estimated blood obtained (mL): 5
--- NOTE | 2024-03-01 14:35 | EXP.ANES.I ---
[facility] Anesthesia Record Part I Anesthesia Record I Intake, IV Amount: 1,400 Hydration: Adequate Estimated blood loss (mL): 0 Urine output (mL): 0 Blood Products used (#): none Blood Pressure: 144/77 SaO2: 96 Pulse Rate: 68 Airway Patency: Patent Respiratory Rate: 18 Temperature: 97.3 F Patient is:: Drowsy and Stable Stable to PACU at:: 14:28
--- NOTE | 2024-03-01 15:01 | XR_ITS ---
FINAL REPORT CLINICAL HISTORY: post bronch COMPARISON: 06/23/2023 FINDINGS: The heart size is normal. The mediastinum is normal. The lungs are underinflated. Patchy airspace infiltrates at the bases have increased from prior. There are no pleural effusions. There is no pneumothorax. Left shoulder prosthesis is present. IMPRESSION: Bibasilar airspace infiltrates. No evidence of pneumothorax post bronchoscopy. Reviewed, Interpreted and Dictated by Rao Lerma MD Transcribed by Luisa Aguilar Authenticated and [facility]
[2024-03-02 07:36] VITALS: BP 134/75; PULSE 64; RESP 18; TEMP 36.2; O2SAT 94
--- NOTE | 2024-03-02 07:36 | EXP.ANES.II ---
[facility] Anesthesia Record Part II Anesthesia Record Part II Discharge Time: 14:58 Destination: Surgical Day Care (OP Surgery) PACU nurse assessment reviewed?: Yes Patient Condition:: Good Anesthesia Complications:: None Swallowing reflex intact?: Yes Airway Patency: Patent Cyanosis?: No Blood Pressure: 134/75 SaO2: 94 Respiratory Rate: 18 Pulse Rate: 64 Temperature: 97.2 F Mental Status: Alert & Oriented Pain level:: 0 Nausea and/or vomitting:: None Intake, IV Amount: 0 Hydration: Adequate
== END 2024-03-01 15:41 | disposition home or self-care (01) ==
PROVIDERS: PCP Family Medicine; Visit Provider Internal Medicine Pulmonary Disease
PROC: (CPT 31624; principal; 2024-03-01 12:00)
DX: J84.9 Interstitial pulmonary disease, unspecified (principal)
CPT/HCPCS: 31624; 31629; 71045; 76000; 80048; 85025; 87070; 87077; 87102; 87116; 87186; 87205; 87206; 88112; 88305; 89051; J3490; J2250; J3010; J7120

== ENCOUNTER 2024-05-05 10:07 | Inpatient (IN) | payer MEDICARE, SELFPAY ==
[2024-05-05] VITALS (14 sets, daily range): BP systolic 95–120; BP diastolic 49–77; PULSE 87–115; RESP 16–19; TEMP 36.7–37.2; O2SAT 80–95; BMI 23.7; BMI 25.0
[2024-05-05 10:33] LABS: VBG Base Excess -1.8 mmol/L (-2.4-2.3); VBG HCO3 22.8 mmol/L (23-30); VBG Oxygen Saturation 73.5 % (50-70); VBG PCO2 36.6 mmol/L (35-51); VBG PH 7.41 mmol/L (7.31-7.41); VBG PO2 37.1 mmol/L (28-40)
[2024-05-05 10:34] LABS: Lactate Venous 2.9 mmol/L (0.4-2.0)
--- NOTE | 2024-05-05 10:53 | CT_ITS ---
FINAL REPORT CLINICAL HISTORY: hypoxic respiratory failure FINDINGS: Thin section axial CT images of the chest were obtained with contrast. 3D reformatted images were also obtained. This study was performed with techniques to keep radiation doses as low as reasonably achievable (ALARA). Individualized dose reduction techniques using automated exposure control or adjustment of mA and/or kV according to the patient''s size were employed. There is no evidence of pulmonary embolism. There is no evidence of thoracic aortic aneurysm or dissection. There is no evidence of mediastinal or hilar mass or adenopathy. There is no evidence of pulmonary mass or nodule. Widespread pulmonary groundglass opacities are seen which may represent edema or bilateral pneumonia. Limited images of the upper abdomen are unremarkable. IMPRESSION: No evidence of pulmonary embolism. Bilateral pulmonary opacities consistent with bilateral pneumonia or edema. Authenticated and [facility]
--- NOTE | 2024-05-05 10:56 | HMH.EDGENADL ---
Discharge Plan Disposition Patient Disposition: Admitted Clinical Impressions Clinical Impression: Multifocal pneumonia, Acute hypoxemic respiratory failure, Pulmonary fibrosis, Encephalopathy, Generalized weakness, Acute hyponatremia, Immunocompromised Discharge ED Provider: Jovon Glaser General Adult HPI General Chief complaint: Weakness Stated complaint: unstable on feet, not eating Time Seen by Provider: 05/05/24 10:44 Mode of Arrival: Wheelchair Source of Information: Patient Limitations: No Limitations Description of Symptoms (Recalled from ER Triage Doc. by RN): reports that the patient hasn't been eating, confused and cough. States the patient has lung fibrosis and that he just hasn't been acting right. History of Present Illness HPI narrative: Patient is a 78-year-old with a known history of interstitial pulmonary fibrosis that has been worsening and is followed by her nuclear radiologist here at [place]. He presents today with acute worsening over the last several days. He has had intermittent confusion over the last few years but this acutely worsens 2 to 3 days ago associated with worsening shortness of breath and generalized weakness. He was found to be hypoxic in triage and placed on oxygen. No fevers he has been having some chills denies any history of heart failure etc. Related Data Home Medications ?Medication ?Instructions ?Recorded ?Confirmed etodolac 400 mg tablet 400 mg PO BID 04/10/21 05/05/24 folic acid 1 mg tablet 1 mg PO DAILY 04/10/21 05/05/24 methotrexate sodium 2.5 mg tablet 2.5 mg PO DIRECTED 04/10/21 05/05/24 niacin 500 mg tablet,extended 500 mg PO DAILY 04/10/21 05/05/24 release pravastatin 20 mg tablet 20 mg PO HS 04/10/21 05/05/24 valacyclovir 500 mg tablet 500 mg PO BID 02/26/24 05/05/24 (Valtrex) calcium 600 mg (as 1 tab PO DAILY 03/01/24 05/05/24 carbonate)-vitamin D3 5 mcg (200 unit) tablet duloxetine 60 mg capsule,delayed 60 mg PO DAILY 03/08/24 05/05/24 release losartan 50 mg tablet 50 mg PO DAILY 03/08/24 05/05/24 omeprazole 40 mg capsule,delayed 40 mg PO BID 03/08/24 05/05/24 release prednisone 20 mg tablet 20 mg PO DIRECTED 05/05/24 05/05/24 Allergies Allergy/AdvReac Type Severity Reaction Status Date / Time cephalexin (From Keflex) Allergy Unknown Verified 05/05/24 10:23 allergy reaction PFSH [facility] Disclaimer: The information contained in this section may have been updated after the patient was seen, as this information can be updated by other users. Medical History (Updated 05/05/24 @ 12:20 by Jovon Glaser MD) Pneumonia History of basal cell carcinoma Dyspnea on exertion ILD (interstitial lung disease) Fibrosis of lung Surgical History History of ear surgery History of shoulder surgery Family History Other Cancer Heart attack Social History Smoking Status: Never smoker alcohol intake: never substance use type: denies use current occupational status: retired Travel in the last 8 weeks: None caffeine: Yes Other Medical History Have you received the Flu Vaccine for this season: Yes Have you received the Pneumonia Vaccine: Yes ROS Obtained: Yes All systems reviewed & no additional complaints except as documented Physical Exam General General appearance: alert and other (On 3 L nasal cannula 89% on my initial evaluation he was 81% room air prior to my evaluation) Respiratory Respiratory exam: Present other (Bibasilar crackles no respiratory distress no wheezing) Cardiovascular Cardiovascular exam: Present tachycardia Neurological Exam Neurological exam: Present alert and oriented X3 Medical Decision Making Medical Records Screening: Per USPSTF and CDC recommendations, given the prevalence of disease in our region, it is our hospital?s policy to screen for HIV and viral Hepatitis for all patients aged 18 and over and those with ongoing risk factors. [place] Inquiry Pt receiving controlled substance: No Vital Signs: 05/05/24 10:08 05/05/24 10:14 05/05/24 10:30 Temperature 98.7 F Temperature Source Oral Pulse Rate 108 H Pulse Rate [Radial] 115 H Respiratory Rate 18 Blood Pressure 106/72 L 95/66 L Blood Pressure [Right Arm] 106/72 L Blood Pressure Mean Blood Pressure Mean [Right Arm] 83 Blood Pressure Source [Right Arm] Automatic Cuff Blood Pressure Position [Right Arm] Sitting 02 Sat by Pulse Oximetry 80 L 93 L 93 L Oxygen Delivery Method Room Air Nasal Cannula Nasal Cannula Oxygen Flow Rate (LPM) 3 3 05/05/24 11:09 05/05/24 11:30 05/05/24 12:11 Temperature Temperature Source Pulse Rate 98 H 100 H Pulse Rate [Radial] Respiratory Rate Blood Pressure 95/69 L 115/69 98/70 L Blood Pressure [Right Arm] Blood Pressure Mean 74 Blood Pressure Mean [Right Arm] Blood Pressure Source [Right Arm] Blood Pressure Position [Right Arm] 02 Sat by Pulse Oximetry 93 L 95 Oxygen Delivery Method Oxygen Flow Rate (LPM) 05/05/24 12:30 Temperature Temperature Source Pulse Rate 95 H Pulse Rate [Radial] Respiratory Rate Blood Pressure 109/71 L Blood Pressure [Right Arm] Blood Pressure Mean Blood Pressure Mean [Right Arm] Blood Pressure Source [Right Arm] Blood Pressure Position [Right Arm] 02 Sat by Pulse Oximetry 94 L Oxygen Delivery Method Oxygen Flow Rate (LPM) Lab Data Lab results reviewed: Yes I reviewed the patient's lab results. Lab Results 05/05/24 10:20: WBC 10.5, RBC 4.42 L, Hgb 16.2, Hct 46.3, MCV 104.6 H, MCH 36.7 H, MCHC 35.1, RDW 17.3, Plt Count 261, MPV 8.8, Neut % (Auto) 79.6, Lymph % (Auto) 9.4 L, [place] % (Auto) 8.2, Eos % (Auto) 0.6, Baso % (Auto) 2.1 H, Neut # (Auto) 8.4 H, Lymph # (Auto) 1.0, [place] # (Auto) 0.9, Eos # (Auto) 0.1, Baso # (Auto) 0.2, Sodium 129 L, Potassium 4.1, Chloride 98, Carbon Dioxide 25, Anion Gap 10.1, BUN 19, Creatinine 1.20, Estimated Creat Clear 55, Estimated GFR 59, Est GFR ( Amer) 71, Glucose 134 H, Calcium 8.6, Total Bilirubin 1.7 H, AST 51, ALT 39, Alkaline Phosphatase 110, Troponin I 0.03, NT-Pro-B Natriuret Pep 419, Total Protein 6.6, Albumin 3.7, Globulin 2.9, Albumin/Globulin Ratio 1.3, HIV 1&2 Antibody Rapid Nonreactive 05/05/24 10:27: VBG pH 7.41, VBG pCO2 36.6, VBG pO2 37.1, VBG HCO3 22.8 L, VBG Total CO2 24.0, VBG O2 Saturation 73.5 H, VBG Base Excess -1.8, VBG Lactic Acid 2.9 H 05/05/24 10:59: SARS-CoV-2 (PCR) Not detected, Influenza A Untype (PCR) Not detected, Influenza Type B (PCR) Not detected 05/05/24 10:20 05/05/24 10:20 Orders (Tests/Meds): ED MEDICATIONS Generic Name Dose Route Start Last Admin Trade Name Freq PRN Reason Stop Dose Admin Vancomycin/PEG/NADA/Lysine/Water 1.5 gm in 300 mls @ 150 mls/hr 05/05/24 12:30 Vancomycin 1.5gm/300ml (Peg) Premix IV 05/05/24 14:29 ONCE ONE Discontinued Medications Generic Name Dose Route Start Last Admin Trade Name Freq PRN Reason Stop Dose Admin Cefepime HCl 2 gm/ Sodium 100 mls @ 200 mls/hr 05/05/24 12:16 Chloride IV 05/05/24 12:45 ONCE ONE Azithromycin 500 mg/ Sodium 250 mls @ 250 mls/hr 05/05/24 12:17 05/05/24 12:24 Chloride IV 05/05/24 12:18 250 mls/hr ONCE ONE Administration Iopamidol 70 ml 05/05/24 11:49 05/05/24 11:51 Iopamidol-370 (76%);100ml Bottle IV 05/05/24 11:50 70 ml ONCE ONE Administration Miscellaneous 1 each 05/05/24 12:30 Vancomycin Consult Request NOTAPPLIC 06/04/24 12:29 CONSULT PHARMACY JOHN Sodium Chloride 10 ml 05/05/24 11:49 05/05/24 11:51 Sodium Chloride 0.9% 10ml Syr (Rad Only) IV 05/05/24 11:50 10 ml ONCE ONE Administration Sodium Chloride 50 ml 05/05/24 11:49 05/05/24 11:51 0.9 % Sodium Chloride 50 Ml Vial IV 05/05/24 11:50 50 ml ONCE ONE Administration ORDERS Category Date Time Status CT angio chest PE protocol Stat Cat Scan 05/05/24 10:53 Completed POCUS Point of Care (ER Only) Stat Exams 05/05/24 10:54 Completed BNP [NT Pro Brain Natriuretic Pep.] Stat Lab 05/05/24 10:20 Completed CBC w/Auto Diff [Complete Blood Count Auto Diff] Stat Lab 05/05/24 10:20 Completed CMP [Comprehensive Metabolic Panel] Stat Lab 05/05/24 10:20 Completed HIV (1&2) Antibody Rapid Stat Lab 05/05/24 10:20 Completed Hep C Ab with Reflex to RNA Stat Lab 05/05/24 10:20 Received Rapid PCR Covid and Flu A/B Stat Lab 05/05/24 10:59 Completed Trop I [Troponin I] Stat Lab 05/05/24 10:20 Completed Troponin I Q3H Lab 05/05/24 14:00 Ordered Troponin I Q3H Lab 05/05/24 17:00 Ordered Blood Culture Stat Micro 05/05/24 10:53 Ordered VBG [Venous Blood Gas] Stat RT 05/05/24 10:27 Completed Medical Decision Narrative: 78-year-old with above history and physical with hypoxic respiratory failure intermittent encephalopathy generalized weakness that is worsened over the last several days on top of known diagnosis of interstitial pulmonary fibrosis. Differential includes worsening pulmonary fibrosis with hypoxic respiratory failure and encephalopathy secondary to that, consolidative changes such as with pneumonia, malignancy, pulmonary embolism etc. Will get a contrasted CT scan/CT PE to further evaluate his lung parenchymal disease today. Also will perform a bedside ultrasound as heart failure is also on the differential. Patient will need to be admitted with a new oxygen requirement family's been made aware this will reassess after his initial workup is complete. Septic workup also is being initiated. Reassessment 1254 CT scan performed which I personally interpreted which shows dense consolidation multiple lobes consistent with multifocal pneumonia. I discussed the case with our nuclear radiologist and given the fact that this patient is chronically on methotrexate and is immune compromised will aggressively treat with IV antibiotics including bank cefepime and azithromycin. Patient is stable on 3 to 5 L nasal cannula with his hypoxic respiratory failure. The patient does not have objective evidence of sepsis at the moment. Our nuclear radiologist is comfortable keeping the patient at [place] and our nurse spoke to Dr. Minor about the case who is comfortable admitting this patient for further evaluation and management. Critical Care Critical Care Time Critical Care Time: Yes Attestation: On 05/05/24, the high probability of a clinically significant, sudden or life threatening deterioration of the following system(s) required my full and direct attention, intervention and personal management. The time I documented below is in addition to time spent performing reported procedures but includes the following listed in this critical care notation. Total Time Total Critical Care Time: 35
[2024-05-05 10:59] LABS: Basophils # 0.2 K/mm3 (0-0.2); Basophils % 2.1 % (0.1-2.0); Eosinophils # 0.1 K/mm3 (0.0-0.4); Eosinophils % 0.6 % (0.1-12.0); Hematocrit 46.3 % (42.0-52.0); Hemoglobin 16.2 g/dL (14.1-18.0); Lymphocytes % 9.4 % (10-50); Mean Corpuscular HGB Conc 35.1 g/dL (31.8-35.4); Mean Corpuscular Hemoglobin 36.7 pg (27.0-31.2); Mean Corpuscular Volume 104.6 fl (80-94); Mean Platelet Volume 8.8 fl (7.4-10.4); Monocytes # 0.9 K/mm3 (0.1-1.0); Monocytes % 8.2 % (1.7-9.3); Neutrophils # 8.4 K/mm3 (1.8-7.8); Neutrophils % 79.6 % (37.0-80.0); Platelet Count 261 K/mm3 (142-424); Red Blood Count 4.42 M/mm3 (4.60-6.20); Red Cell Distribution Width 17.3 % (11.5-17.5); White Blood Count 10.5 K/mm3 (4.8-10.8)
[2024-05-05 11:04] LABS: Coronavirus 19, PCR Not Detected (NotDetected); Influenza A, PCR Not Detected (NotDetected); Influenza B, PCR Not Detected (NotDetected)
[2024-05-05 11:06] LABS: Albumin Level 3.7 g/dl (3.5-5.0); Chloride 98 mmol/L (98-107); Potassium 4.1 mmoL/L (3.5-5.1); Sodium 129 mmol/L (136-145)
[2024-05-05 11:09] LABS: Alanine Aminotransferase 39 U/L (12-78); Albumin/Globulin Ratio 1.3 (1.1-1.8); Alkaline Phosphatase 110 U/L (38-126); Anion Gap 10.1 mEq/L (5-15); Aspartate Amino Transferase 51 U/L (17-59); Bilirubin,Total 1.7 mg/dl (0.2-1.3); Blood Urea Nitrogen 19 mg/dl (9-20); Calcium 8.6 mg/dl (8.4-10.2); Carbon Dioxide 25 mmol/L (22.0-30.0); Creatinine Clearance Estimated 55 mL/min (50-200); Estimated Glomerular Filt Rate 59 ml/min (>60); GFR (African American) 71 ML/MIN (>60); Globulin 2.9 g/dL (1.3-3.2); Glucose 134 mg/dl (74-100); Total Protein,Serum 6.6 g/dl (6.3-8.2)
[2024-05-05 11:18] LABS: NT Pro Brain Natriuretic Pep. 419 pg/mL (0-450)
[2024-05-05 11:22] LABS: Troponin I 0.03 ng/ml (0.00-0.034)
--- NOTE | 2024-05-05 11:38 | PC.NURSE ---
patient gone to CT at this time.
[2024-05-05] MEDS: IOPAMIDOL-370 (76%);100ML BOTTLE 70 ML IV (11:51)
[2024-05-05] MEDS: SODIUM CHLORIDE 0.9% 10ML SYR (RAD ONLY) 10 ML IV (11:51)
[2024-05-05] MEDS: 0.9 % SODIUM CHLORIDE 50 ML VIAL IV (11:51)
--- NOTE | 2024-05-05 12:00 | PC.NURSE ---
Water and tissues provided to patient per family request.
--- NOTE | 2024-05-05 12:20 | PC.NURSE ---
DR MILAN AT BEDSIDE TO UPDATE PT AND FAMILY
[2024-05-05] MEDS: AZITHROMYCIN 500 MG in 0.9 % SODIUM CHLORIDE 250 ML 250 MG IV (12:24)
--- NOTE | 2024-05-05 12:29 | PC.NURSE ---
I called and requested a lunch tray for the pt.
[2024-05-05 12:37] LABS: HIV (1&2) Antibody Rapid NONREACTIVE (NONREACTIVE)
--- NOTE | 2024-05-05 12:39 | PC.NURSE ---
dr corley notified of pt, will admit
--- NOTE | 2024-05-05 12:42 | PC.NURSE ---
[employer] INSPECTOR NOTIFIED OF ADMISSION
--- NOTE | 2024-05-05 12:43 | PC.NURSE ---
[facility] AT BEDSIDE
--- NOTE | 2024-05-05 12:52 | PC.NURSE ---
Report called to CAMERON Vanessa on Med Surg.
--- NOTE | 2024-05-05 12:55 | HMH.PHAINT1 ---
Pharmacy Intervention Comments: MEDICATION RECONCILIATION COMPLETED ON PATIENT USING EXTERNAL FILL HISTORY FROM PHARMACY. -DUY ANDREWS, ABHIJEETD
[2024-05-05] MEDS: CEFEPIME HCL 2 GM in 0.9 % SODIUM CHLORIDE 100 ML IV ×2 (13:40→21:00)
--- NOTE | 2024-05-05 13:47 | PC.NURSE ---
ARRIVED BY STRETCHER FROM ED
[2024-05-05 14:35] LABS: Reflex Lactic Add Lactic Reflex
[2024-05-05 15:07] LABS: Troponin I 0.02 ng/ml (0.00-0.034)
[2024-05-05 15:31] LABS: Lactic Acid Follow Up (RFLX 1) 2.2 mmol/L (0.7-2.1)
--- NOTE | 2024-05-05 15:31 | PC.NURSE ---
Pharmacy to bring pt's vanc.
--- NOTE | 2024-05-05 15:55 | P.HP_ITS ---
History of Present Illness *Admission Date: 05/05/24 *Reason for visit:: shortness of breath, pneumonia *History of present illness: 78-year-old with above history and physical with hypoxic respiratory failure intermittent encephalopathy generalized weakness that is worsened over the last several days on top of known diagnosis of interstitial pulmonary fibrosis. Differential includes worsening pulmonary fibrosis with hypoxic respiratory failure and encephalopathy secondary to that, consolidative changes such as with pneumonia, malignancy, pulmonary embolism etc. Will get a contrasted CT scan/CT PE to further evaluate his lung parenchymal disease today. Also will perform a bedside ultrasound as heart failure is also on the differential. Patient will need to be admitted with a new oxygen requirement family's been made aware this will reassess after his initial workup is complete. Septic workup also is being initiated. Reassessment 1254 CT scan performed which I personally interpreted which shows dense consolidation multiple lobes consistent with multifocal pneumonia. I discussed the case with our director of industrial relations and given the fact that this patient is chronically on methotrexate and is immune compromised will aggressively treat with IV antibiotics including vanc, cefepime, and azithromycin. Patient is stable on 3 to 5 L nasal cannula with his hypoxic respiratory failure. The patient does not have objective evidence of sepsis at the moment. Our director of industrial relations is comfortable keeping the patient at [place] and our nurse spoke to Dr. Minor about the case who is comfortable admitting this patient for further evaluation and management. (above as per ER physician) Further to above history, the patient has been sick for a few weeks but has been getting progressively worse since Friday with confusion and weakness. He denies any pain. His flu and covid tests were negative. [facility] Disclaimer: The information contained in this section may have been updated after the patient was seen, as this information can be updated by other users. Medical History (Updated 05/05/24 @ 16:48 by Osman Minor MD) Hypertension Hyperlipemia GERD (gastroesophageal reflux disease) Rheumatoid arthritis Pneumonia History of basal cell carcinoma Dyspnea on exertion ILD (interstitial lung disease) Fibrosis of lung Surgical History (Updated 05/05/24 @ 16:01 by YONATAN Deshpande) History of cataract surgery History of ear surgery History of shoulder surgery Family History Other Cancer Heart attack Social History (Updated 05/05/24 @ 14:12 by Iliana Ayala RN) Smoking Status: Never smoker alcohol intake: never substance use type: denies use current occupational status: retired Travel in the last 8 weeks: None caffeine: Yes Other Medical History Have you received the Flu Vaccine for this season: Yes Have you received the Pneumonia Vaccine: Yes Review of Systems Constitutional Constitutional: Reports body ache(s), Reports chills, Reports fatigue, Denies fever(s), Denies headache(s), Reports malaise and Reports weakness Eyes Eyes: Denies blurry vision and Denies diplopia ENT Ears, Nose, Mouth, and Throat: Reports dizziness, Denies headache(s), Denies nasal congestion and Denies sore throat *Cardiovascular Cardiovascular: Denies chest pain and Reports dyspnea *Respiratory Respiratory: Reports cough and Reports dyspnea *Gastrointestinal Gastrointestinal: Denies abdominal pain, Denies loose stools, Denies nausea and Denies vomiting *Genitourinary Genitourinary: Denies dysuria and Denies hematuria *Musculoskeletal Musculoskeletal: Reports myalgias *Neurologic Neurologic: Reports dizziness, Denies headache(s) and Reports weakness Endocrine Endocrine: Reports fatigue Meds Home Medications and Allergies Home Medications ?Medication ?Instructions ?Recorded ?Confirmed ?Type etodolac 400 mg tablet 400 mg PO BID 04/10/21 05/05/24 History folic acid 1 mg tablet 1 mg PO DAILY 04/10/21 05/05/24 History methotrexate sodium 2.5 mg tablet 2.5 mg PO DIRECTED 04/10/21 05/05/24 History niacin 500 mg tablet,extended 500 mg PO DAILY 04/10/21 05/05/24 History release pravastatin 20 mg tablet 20 mg PO HS 04/10/21 05/05/24 History valacyclovir 500 mg tablet 500 mg PO BID 02/26/24 05/05/24 History (Valtrex) calcium 600 mg (as 1 tab PO DAILY 03/01/24 05/05/24 History carbonate)-vitamin D3 5 mcg (200 unit) tablet duloxetine 60 mg capsule,delayed 60 mg PO DAILY 03/08/24 05/05/24 History release losartan 50 mg tablet 50 mg PO DAILY 03/08/24 05/05/24 History omeprazole 40 mg capsule,delayed 40 mg PO BID 03/08/24 05/05/24 History release prednisone 20 mg tablet 20 mg PO DIRECTED 05/05/24 05/05/24 History New Prescriptions to Start Prescriptions: Allergies Allergy/AdvReac Type Severity Reaction Status Date / Time cephalexin (From Keflex) Allergy Unknown Verified 05/05/24 10:23 allergy reaction Exam Data for Last 24 hours Vital signs and Labs for Last 24 Hours: Temp Pulse Resp BP Pulse Ox O2 Del Method O2 Flow Rate 98.2 F 94 H 18 103/49 L 94 L Nasal Cannula 4 05/05/24 13:47 05/05/24 13:47 05/05/24 13:47 05/05/24 13:47 05/05/24 13:47 05/05/24 15:25 05/05/24 15:25 Laboratory Results - last 24 hr 05/05/24 10:20: WBC 10.5, RBC 4.42 L, Hgb 16.2, Hct 46.3, MCV 104.6 H, MCH 36.7 H, MCHC 35.1, RDW 17.3, Plt Count 261, MPV 8.8, Neut % (Auto) 79.6, Lymph % (Auto) 9.4 L, [place] % (Auto) 8.2, Eos % (Auto) 0.6, Baso % (Auto) 2.1 H, Neut # (Auto) 8.4 H, Lymph # (Auto) 1.0, [place] # (Auto) 0.9, Eos # (Auto) 0.1, Baso # (Auto) 0.2, Sodium 129 L, Potassium 4.1, Chloride 98, Carbon Dioxide 25, Anion Gap 10.1, BUN 19, Creatinine 1.20, Estimated Creat Clear 55, Estimated GFR 59, Est GFR ( Amer) 71, Glucose 134 H, Calcium 8.6, Total Bilirubin 1.7 H, AST 51, ALT 39, Alkaline Phosphatase 110, Troponin I 0.03, NT-Pro-B Natriuret Pep 419, Total Protein 6.6, Albumin 3.7, Globulin 2.9, Albumin/Globulin Ratio 1.3, HIV 1&2 Antibody Rapid Nonreactive 05/05/24 10:27: VBG pH 7.41, VBG pCO2 36.6, VBG pO2 37.1, VBG HCO3 22.8 L, VBG Total CO2 24.0, VBG O2 Saturation 73.5 H, VBG Base Excess -1.8, VBG Lactic Acid 2.9 H 05/05/24 10:59: SARS-CoV-2 (PCR) Not detected, Influenza A Untype (PCR) Not detected, Influenza Type B (PCR) Not detected 05/05/24 14:20: Troponin I 0.02 05/05/24 15:05: Lactate 2.2 H I & O for Last 24 hours: Intake & Output 05/03/24 05/04/24 05/05/24 05/06/24 11:59 11:59 11:59 11:59 Output Total 0 / 0 Balance 0 / 0 Weight 170 lb 179 lb 4 oz Constitutional Constitutional: no acute distress *Routine HEENT Exam Head: Present normocephalic and atraumatic Eye: Present EOMI and PERRL ENT: Present mucous membranes moist *Routine Neck Exam Neck: Present supple and full ROM *Routine Respiratory Exam Respiratory: Present crackles (bilateral lower lobes) *Routine Cardiovascular Exam Cardiovascular: Present RRR *Routine Abdominal Exam Abdominal: Present soft and normoactive bowel sounds; Absent tenderness *Routine Rectal Exam Rectal:: deferred *Routine Genitalia Exam Genitalia:: deferred *Routine Extremities Exam Extremities: Absent cyanosis, clubbing or edema *Routine Skin Exam Skin: Present intact; Absent erythema *Routine Neurological Exam Neurological: Present alert and oriented X3 H&P: Result Impressions CTA -No evidence of pulmonary embolism. Bilateral pulmonary opacities consistent with bilateral pneumonia or edema. Assessment and Plan *Assessment and plan (1) Bilateral pneumonia: Status: Acute Qualifiers: Pneumonia type: due to unspecified organism Lung location: unspecified part of lung Qualified Code(s): J18.9 - Pneumonia, unspecified organism Category: Medical Code(s): J18.9 - Pneumonia, unspecified organism (2) Multifocal pneumonia: Status: Acute Category: Medical Code(s): J18.9 - Pneumonia, unspecified organism (3) Acute hypoxemic respiratory failure: Status: Acute Category: Medical Code(s): J96.01 - Acute respiratory failure with hypoxia (4) Immunocompromised: Status: Acute Category: Medical Code(s): D84.9 - Immunodeficiency, unspecified (5) Generalized weakness: Status: Acute Category: Medical Code(s): R53.1 - Weakness (6) Acute hyponatremia: Status: Acute Category: Medical Code(s): E87.1 - Hypo-osmolality and hyponatremia (7) Encephalopathy: Status: Acute Category: Medical Code(s): G93.40 - Encephalopathy, unspecified (8) Pulmonary fibrosis: Status: Acute Category: Medical Code(s): J84.10 - Pulmonary fibrosis, unspecified (9) Rheumatoid arthritis: Status: Acute Category: Medical Code(s): M06.9 - Rheumatoid arthritis, unspecified (10) Hyperlipemia: Status: Acute Category: Medical Code(s): E78.5 - Hyperlipidemia, unspecified (11) Hypertension: Status: Acute Category: Medical Code(s): I10 - Essential (primary) hypertension (12) ILD (interstitial lung disease): Status: Acute Category: Medical Code(s): J84.9 - Interstitial pulmonary disease, unspecified (13) Fibrosis of lung: Status: Acute Category: Medical Code(s): J84.10 - Pulmonary fibrosis, unspecified Plan Patient has been started on zithromax, cefepime, and vancomycin. The ER physician did speak with pulmonology. Will consult the director of industrial relations as well. Dr. Minor entry - Saw patient, agree with above note. He has been admitted for further evaluation and management. See orders.
[2024-05-05] MEDS: VANCOMYCIN/WATER FOR INJ (PEG) 1.5 GM/300 ML PIGGYBACK IV (16:17)
[2024-05-05 17:09] LABS: Reflex Lactic (2 hrs) Add Lactic Reflex
[2024-05-05 17:24] LABS: Lactic Acid Follow up (RFLX 2) 1.3 mmol/L (0.7-2.1)
[2024-05-05 17:36] LABS: Troponin I 0.02 ng/ml (0.00-0.034)
[2024-05-05] MEDS: METHYLPREDNISOLONE SOD SUCC 125MG VIAL 80 MG IV (17:38)
[2024-05-05] MEDS: IPRATROPIUM/ALBUTEROL 3 ML NEB IH (18:34)
[2024-05-05] MEDS: PRAVASTATIN 20MG TAB 20 MG PO (21:01)
[2024-05-05] MEDS: PANTOPRAZOLE 40MG TABLET 40 MG PO (21:01)
[2024-05-06] VITALS (10 sets, daily range): BP systolic 98–115; BP diastolic 60–72; PULSE 62–98; RESP 16–20; TEMP 36.3–36.6; O2SAT 90–98; BMI 24.7
[2024-05-06] MEDS: METHYLPREDNISOLONE SOD SUCC 125MG VIAL 80 MG IV ×2 (01:13→08:38)
[2024-05-06] MEDS: CEFEPIME HCL 2 GM in 0.9 % SODIUM CHLORIDE 100 ML IV ×2 (05:32→18:59)
[2024-05-06] MEDS: IPRATROPIUM/ALBUTEROL 3 ML NEB IH ×3 (05:36→19:22)
[2024-05-06 06:15] LABS: HCV Ab Non Reactive (Non Reactive)
--- NOTE | 2024-05-06 07:41 | P.CONPHA_ITS ---
Pharmacy Consult Date: 05/06/24 Time: 07:42 Referring provider: DR. MINOR Reason for Consult:: VANCOMYCIN DOSING Allergies Allergy/AdvReac Type Severity Reaction Status Date / Time cephalexin (From Keflex) Allergy Unknown Verified 05/05/24 10:23 allergy reaction Home Medications ?Medication ?Instructions ?Recorded ?Confirmed ?Type etodolac 400 mg tablet 400 mg PO BID 04/10/21 05/05/24 History folic acid 1 mg tablet 1 mg PO DAILY 04/10/21 05/05/24 History methotrexate sodium 2.5 mg tablet 2.5 mg PO DIRECTED 04/10/21 05/05/24 History niacin 500 mg tablet,extended 500 mg PO DAILY 04/10/21 05/05/24 History release pravastatin 20 mg tablet 20 mg PO HS 04/10/21 05/05/24 History valacyclovir 500 mg tablet 500 mg PO BID 02/26/24 05/05/24 History (Valtrex) calcium 600 mg (as 1 tab PO DAILY 03/01/24 05/05/24 History carbonate)-vitamin D3 5 mcg (200 unit) tablet duloxetine 60 mg capsule,delayed 60 mg PO DAILY 03/08/24 05/05/24 History release losartan 50 mg tablet 50 mg PO DAILY 03/08/24 05/05/24 History omeprazole 40 mg capsule,delayed 40 mg PO BID 03/08/24 05/05/24 History release prednisone 20 mg tablet 20 mg PO DIRECTED 05/05/24 05/05/24 History New Prescriptions to Start Prescriptions: Height: 1.8 m Weight: 79.968 kg Laboratory Results:: Laboratory Results - last 24 hr 05/05/24 10:20: WBC 10.5, RBC 4.42 L, Hgb 16.2, Hct 46.3, MCV 104.6 H, MCH 36.7 H, MCHC 35.1, RDW 17.3, Plt Count 261, MPV 8.8, Neut % (Auto) 79.6, Lymph % (Auto) 9.4 L, [place] % (Auto) 8.2, Eos % (Auto) 0.6, Baso % (Auto) 2.1 H, Neut # (Auto) 8.4 H, Lymph # (Auto) 1.0, [place] # (Auto) 0.9, Eos # (Auto) 0.1, Baso # (Auto) 0.2, Sodium 129 L, Potassium 4.1, Chloride 98, Carbon Dioxide 25, Anion Gap 10.1, BUN 19, Creatinine 1.20, Estimated Creat Clear 55, Estimated GFR 59, Est GFR ( Amer) 71, Glucose 134 H, Calcium 8.6, Total Bilirubin 1.7 H, AST 51, ALT 39, Alkaline Phosphatase 110, Troponin I 0.03, NT-Pro-B Natriuret Pep 419, Total Protein 6.6, Albumin 3.7, Globulin 2.9, Albumin/Globulin Ratio 1.3, Hepatitis C Antibody Non reactive, HIV 1&2 Antibody Rapid Nonreactive 05/05/24 10:27: VBG pH 7.41, VBG pCO2 36.6, VBG pO2 37.1, VBG HCO3 22.8 L, VBG Total CO2 24.0, VBG O2 Saturation 73.5 H, VBG Base Excess -1.8, VBG Lactic Acid 2.9 H 05/05/24 10:59: SARS-CoV-2 (PCR) Not detected, Influenza A Untype (PCR) Not detected, Influenza Type B (PCR) Not detected 05/05/24 14:20: Troponin I 0.02 05/05/24 15:05: Lactate 2.2 H 05/05/24 17:04: Lactate 1.3, Troponin I 0.02 Medical History: Medical History (Updated 05/05/24 @ 16:48 by Osman Minor MD) Hypertension Hyperlipemia GERD (gastroesophageal reflux disease) Rheumatoid arthritis Pneumonia History of basal cell carcinoma Dyspnea on exertion ILD (interstitial lung disease) Fibrosis of lung Assessment and Plan Assessment and plan all Dx Assessment and Plan for all problems:: Pharmacokinetic dosing service Objective: Patient: Floor: Age: 78 yo Serum creatinine: 1.20 mg/dL Height: 70.9 Inches Weight (kg): 80 Assessment: IBW (kg): 75.07 Dosing wt(kg): 80 Estimated Creatinine clearance (ml/min): 53.9 CRCL method: Cockcroft and Gault using ibw(default). Drug selected: Vancomycin Loading dose (mg): Vd (liters): 60.0 (factor used: 0.75 L/kg) Karl (hr-1): 0.049 Half life (hrs): 14.15 CLvanco=?? 2.940 L/hr Recommended dose: 1500 mg Interval: 24 hrs Infusion time (hrs): 2.0 Predicted peak (mcg/mL): 34.4 Predicted trough (mcg/mL): 11.71 Total body weight is being used for vancomycin dosing. Recommendations: Give Vancomycin 1500 mg q 24 hrs with an expected Cpeak of 34.4 mcg/ml and an expected Ctrough of 11.71 mcg/ml AUC 0-24 /RHIANNON Data: RHIANNON 0.5 mcg/mL:?? AUC/RHIANNON:? 1020.4 RHIANNON 1.0 mcg/mL:?? AUC/RHIANNON:? 510.2 --------- RHIANNON 1.5 mcg/mL:?? AUC/RHIANNON:? 340.1 RHIANNON 2.0 mcg/mL:?? AUC/RHIANNON:? 255.1 Thank you for the consult, will continue to follow. -ABHIJEET TREVINOD
[2024-05-06] MEDS: FOLIC ACID 1MG TABLET 1 MG PO (08:38)
[2024-05-06] MEDS: PANTOPRAZOLE 40MG TABLET 40 MG PO ×2 (08:38→20:27)
[2024-05-06] MEDS: DULOXETINE 30MG CAPSULE.DR 60 MG PO (08:38)
--- NOTE | 2024-05-06 08:40 | EXP.ACUTE.PN ---
Subjective *Date: 05/06/24 *Time: 09:15 Interval history: Patient is feeling better today. He states he slept well and ate all of his breakfast. He is less short of breath and his weakness has improved. Medical Exam Vital signs and Labs for Last 24 Hours: Vital Signs Temp Pulse Pulse Resp BP BP Pulse Ox 05/06/24 08:00 97.4 F L 77 18 114/63 90 L 05/06/24 05:36 75 05/06/24 05:36 73 05/06/24 05:36 90 L 05/06/24 05:00 05/06/24 04:00 97.9 F 62 18 115/63 97 05/06/24 03:00 05/06/24 01:00 05/06/24 00:00 97.3 F L 70 16 112/72 98 05/05/24 23:00 05/05/24 21:00 05/05/24 20:00 05/05/24 20:00 98.3 F 102 H 18 117/64 93 L 05/05/24 18:36 87 05/05/24 18:36 89 05/05/24 18:36 05/05/24 17:30 05/05/24 16:00 98.9 F 91 H 19 120/69 92 L 05/05/24 15:55 05/05/24 15:25 05/05/24 13:47 98.2 F 94 H 18 103/49 L 94 L 05/05/24 13:46 98.0 F 90 16 109/57 L 05/05/24 13:31 93 H 112/76 92 L 05/05/24 13:20 101 H 109/77 L 92 L 05/05/24 12:30 95 H 109/71 L 94 L 05/05/24 12:11 98/70 L 05/05/24 11:30 100 H 115/69 95 05/05/24 11:09 98 H 95/69 L 93 L 05/05/24 10:30 108 H 95/66 L 93 L 05/05/24 10:14 106/72 L 93 L 05/05/24 10:08 98.7 F 115 H 18 106/72 L 80 L O2 Del Method O2 Flow Rate 05/06/24 08:00 Nasal Cannula 4 05/06/24 05:36 05/06/24 05:36 05/06/24 05:36 Nasal Cannula 4 05/06/24 05:00 Nasal Cannula 4 05/06/24 04:00 Nasal Cannula 4 05/06/24 03:00 Nasal Cannula 4 05/06/24 01:00 Nasal Cannula 4 05/06/24 00:00 Nasal Cannula 4 05/05/24 23:00 Nasal Cannula 4 05/05/24 21:00 Nasal Cannula 4 05/05/24 20:00 Nasal Cannula 4 05/05/24 20:00 Nasal Cannula 4 05/05/24 18:36 05/05/24 18:36 05/05/24 18:36 Nasal Cannula 4 05/05/24 17:30 Nasal Cannula 4 05/05/24 16:00 Nasal Cannula 4 05/05/24 15:55 Nasal Cannula 4 05/05/24 15:25 Nasal Cannula 4 05/05/24 13:47 Nasal Cannula 05/05/24 13:46 Nasal Cannula 05/05/24 13:31 05/05/24 13:20 05/05/24 12:30 05/05/24 12:11 05/05/24 11:30 05/05/24 11:09 05/05/24 10:30 Nasal Cannula 3 05/05/24 10:14 Nasal Cannula 3 05/05/24 10:08 Room Air Intake and Output 05/05/24 05/06/24 05/06/24 19:59 03:59 11:59 Intake Total 360 / 700 340 / 700 Output Total 0 / 1 Balance 360 / 699 339 / 699 Intake: Intake, Oral Amount 60 / 300 240 / 300 Intake, Total IV Amount 300 / 400 100 / 400 Cefepime HCl 2 gm In 0.9 % 100 / 100 Sodium Chloride 100 ml @ 200 mls/hr IV Q8H [facility] Rx#:[id number] Vancomycin/Water For Inj (Peg) 300 / 300 1.5 gm In 300 ml @ 150 mls/hr IV ONCE ONE Rx#:[id number] Output: Output, Urine Amount 0 / 1 Other: Number of Unmeasured Voids 1 1 Number of Bowel Movements 1 1 Weight 179 lb 4 oz 176 lb 4.8 oz Patient Weight 05/06/24 11:59 Weight 176 lb 4.8 oz Laboratory Results - last 24 hr 05/05/24 10:20: WBC 10.5, RBC 4.42 L, Hgb 16.2, Hct 46.3, MCV 104.6 H, MCH 36.7 H, MCHC 35.1, RDW 17.3, Plt Count 261, MPV 8.8, Neut % (Auto) 79.6, Lymph % (Auto) 9.4 L, [place] % (Auto) 8.2, Eos % (Auto) 0.6, Baso % (Auto) 2.1 H, Neut # (Auto) 8.4 H, Lymph # (Auto) 1.0, [place] # (Auto) 0.9, Eos # (Auto) 0.1, Baso # (Auto) 0.2, Sodium 129 L, Potassium 4.1, Chloride 98, Carbon Dioxide 25, Anion Gap 10.1, BUN 19, Creatinine 1.20, Estimated Creat Clear 55, Estimated GFR 59, Est GFR ( Amer) 71, Glucose 134 H, Calcium 8.6, Total Bilirubin 1.7 H, AST 51, ALT 39, Alkaline Phosphatase 110, Troponin I 0.03, NT-Pro-B Natriuret Pep 419, Total Protein 6.6, Albumin 3.7, Globulin 2.9, Albumin/Globulin Ratio 1.3, Hepatitis C Antibody Non reactive, HIV 1&2 Antibody Rapid Nonreactive 05/05/24 10:27: VBG pH 7.41, VBG pCO2 36.6, VBG pO2 37.1, VBG HCO3 22.8 L, VBG Total CO2 24.0, VBG O2 Saturation 73.5 H, VBG Base Excess -1.8, VBG Lactic Acid 2.9 H 05/05/24 10:59: SARS-CoV-2 (PCR) Not detected, Influenza A Untype (PCR) Not detected, Influenza Type B (PCR) Not detected 05/05/24 14:20: Troponin I 0.02 05/05/24 15:05: Lactate 2.2 H 05/05/24 17:04: Lactate 1.3, Troponin I 0.02 I & O for Labs for Last 24 Hours: Intake & Output 05/03/24 05/04/24 05/05/24 05/06/24 11:59 11:59 11:59 11:59 Intake Total 700 / 700 Output Total Balance 699 / 699 Weight 170 lb 176 lb 4.8 oz Constitutional: Present no acute distress Respiratory: Present wheezes (Improved) and crackles (Bilaterally) Cardiac: Present Reg Rate and Rhythm GI: Present soft and normal bowel sounds; Absent distention or tenderness Extremities: Absent edema, clubbing or cyanosis Skin: Present intact Neuro: Present alert and awake Assessment and Plan *Assessment and plan (1) Bilateral pneumonia: Status: Acute Qualifiers: Lung location: unspecified part of lung Pneumonia type: due to unspecified organism Qualified Code(s): J18.9 - Pneumonia, unspecified organism Category: Medical Code(s): J18.9 - Pneumonia, unspecified organism (2) Multifocal pneumonia: Status: Acute Category: Medical Code(s): J18.9 - Pneumonia, unspecified organism (3) Acute hypoxemic respiratory failure: Status: Acute Category: Medical Code(s): J96.01 - Acute respiratory failure with hypoxia (4) Immunocompromised: Status: Acute Category: Medical Code(s): D84.9 - Immunodeficiency, unspecified (5) Generalized weakness: Status: Acute Category: Medical Code(s): R53.1 - Weakness (6) Acute hyponatremia: Status: Acute Category: Medical Code(s): E87.1 - Hypo-osmolality and hyponatremia (7) Encephalopathy: Status: Acute Category: Medical Code(s): G93.40 - Encephalopathy, unspecified (8) Pulmonary fibrosis: Status: Acute Category: Medical Code(s): J84.10 - Pulmonary fibrosis, unspecified (9) Rheumatoid arthritis: Status: Acute Category: Medical Code(s): M06.9 - Rheumatoid arthritis, unspecified (10) Hyperlipemia: Status: Acute Category: Medical Code(s): E78.5 - Hyperlipidemia, unspecified (11) Hypertension: Status: Acute Category: Medical Code(s): I10 - Essential (primary) hypertension (12) ILD (interstitial lung disease): Status: Acute Category: Medical Code(s): J84.9 - Interstitial pulmonary disease, unspecified (13) Fibrosis of lung: Status: Acute Category: Medical Code(s): J84.10 - Pulmonary fibrosis, unspecified Plan Patient is improving. Will continue IV antibiotics. Pulmonology has been consulted. Dr. Minor entry - Saw patient, agree with above note. He is still on 4 L/min/NC, will attempt to wean today.
--- NOTE | 2024-05-06 09:35 | EXP.PULM.CON ---
History of Present Illness History of present illness: Mr. Muse is a 78-year-old male who continues to complete her rheumatoid arthritis has been taking methotrexate, pulmonary fibrosis interstitial lung disease presented to ER with worsening respiratory distress subjective fevers cough and productive phlegm with CT starting bilateral diffuse airspace disease admitted to the hospital and pulmonary was called for further evaluation and management. Patient admits to weeks of worsening respiratory status fatigue and intermittent chills. Admits worsening cough with no significant productive phlegm. [facility] Disclaimer: The information contained in this section may have been updated after the patient was seen, as this information can be updated by other users. Medical History (Updated 05/05/24 @ 16:48 by Osman Minor MD) Hypertension Hyperlipemia GERD (gastroesophageal reflux disease) Rheumatoid arthritis Pneumonia History of basal cell carcinoma Dyspnea on exertion ILD (interstitial lung disease) Fibrosis of lung Surgical History (Updated 05/05/24 @ 16:01 by YONATAN Deshpande) History of cataract surgery History of ear surgery History of shoulder surgery Family History Other Cancer Heart attack Social History (Updated 05/05/24 @ 14:12 by Iliana Ayala RN) Smoking Status: Never smoker alcohol intake: never substance use type: denies use current occupational status: retired Travel in the last 8 weeks: None caffeine: Yes Review of Systems Constitutional Constitutional: Reports fatigue, Denies headache(s) and Reports weakness Eyes Eyes: Denies eye discharge, Denies dry eyes, Denies irritation and Denies itchy eyes ENT Ears, Nose, Mouth, and Throat: Reports dizziness, Denies headache(s), Denies lip swelling and Denies throat swelling *Cardiovascular Cardiovascular: Reports dyspnea and Reports dyspnea on exertion *Respiratory Respiratory: Denies change in phlegm color, Reports chest congestion, Reports cough, Reports dyspnea, Reports dyspnea on exertion, Reports excessive phlegm production, Denies hemoptysis, Denies pain on inspiration, Denies pain with cough and Denies wheezing *Gastrointestinal Gastrointestinal: Denies abdominal pain, Denies belching and Denies cramping *Musculoskeletal Musculoskeletal: Reports back pain, Reports myalgias and Reports other (No small joint swelling or Pain) *Neurologic Neurologic: Reports dizziness, Denies headache(s) and Reports weakness Psychiatric Psychiatric: Denies homicidal ideation and Denies suicidal ideation Endocrine Endocrine: Reports fatigue and Denies heat intolerance Hematologic/Lymphatic Hematologic/Lymphatic: Denies easy bleeding and Denies lymphadenopathy Allergic/Immunologic Allergic/Immunologic: Denies itchy eyes, Denies lip swelling, Denies throat swelling and Denies wheezing Pulmonology Exam Inpatient Vital signs and Labs for Last 24 Hours: Temp Pulse Resp BP Pulse Ox O2 Del Method O2 Flow Rate 97.4 F L 77 18 114/63 90 L Nasal Cannula 4 05/06/24 08:00 05/06/24 08:00 05/06/24 08:00 05/06/24 08:00 05/06/24 08:00 05/06/24 08:45 05/06/24 08:45 Laboratory Results - last 24 hr 05/05/24 10:20: WBC 10.5, RBC 4.42 L, Hgb 16.2, Hct 46.3, MCV 104.6 H, MCH 36.7 H, MCHC 35.1, RDW 17.3, Plt Count 261, MPV 8.8, Neut % (Auto) 79.6, Lymph % (Auto) 9.4 L, [place] % (Auto) 8.2, Eos % (Auto) 0.6, Baso % (Auto) 2.1 H, Neut # (Auto) 8.4 H, Lymph # (Auto) 1.0, [place] # (Auto) 0.9, Eos # (Auto) 0.1, Baso # (Auto) 0.2, Sodium 129 L, Potassium 4.1, Chloride 98, Carbon Dioxide 25, Anion Gap 10.1, BUN 19, Creatinine 1.20, Estimated Creat Clear 55, Estimated GFR 59, Est GFR ( Amer) 71, Glucose 134 H, Calcium 8.6, Total Bilirubin 1.7 H, AST 51, ALT 39, Alkaline Phosphatase 110, Troponin I 0.03, NT-Pro-B Natriuret Pep 419, Total Protein 6.6, Albumin 3.7, Globulin 2.9, Albumin/Globulin Ratio 1.3, Hepatitis C Antibody Non reactive, HIV 1&2 Antibody Rapid Nonreactive 05/05/24 10:27: VBG pH 7.41, VBG pCO2 36.6, VBG pO2 37.1, VBG HCO3 22.8 L, VBG Total CO2 24.0, VBG O2 Saturation 73.5 H, VBG Base Excess -1.8, VBG Lactic Acid 2.9 H 05/05/24 10:59: SARS-CoV-2 (PCR) Not detected, Influenza A Untype (PCR) Not detected, Influenza Type B (PCR) Not detected 05/05/24 14:20: Troponin I 0.02 05/05/24 15:05: Lactate 2.2 H 05/05/24 17:04: Lactate 1.3, Troponin I 0.02 I & O for Labs for Last 24 Hours: Intake & Output 05/03/24 05/04/24 05/05/24 05/06/24 23:59 23:59 23:59 23:59 Intake Total 360 / 700 700 / 700 Output Total Balance 359 / 699 700 / 700 Weight 179 lb 4 oz 176 lb 4.8 oz Constitutional: Present moderate distress Head: Present normocephalic and atraumatic ENT: Present normal exam, normal oropharynx and mucous membranes moist Neck: Present normal inspection and full ROM Respiratory: Present respiratory distress, rhonchi and able to speak in complete sentences; Absent wheezes Cardiac: Present S1/S2, Tachycardia and radial pulses present GI: Present soft and distention; Absent tenderness or guarding Skin: Present intact; Absent cyanosis or jaundice Neuro: Present alert, awake and oriented x 3 Extremities: Present normal inspection; Absent clubbing or cyanosis Psychiatric: Present normal affect and cooperative Meds Home Medications and Allergies Home Medications ?Medication ?Instructions ?Recorded ?Confirmed ?Type etodolac 400 mg tablet 400 mg PO BID 04/10/21 05/05/24 History folic acid 1 mg tablet 1 mg PO DAILY 04/10/21 05/05/24 History methotrexate sodium 2.5 mg tablet 2.5 mg PO DIRECTED 04/10/21 05/05/24 History niacin 500 mg tablet,extended 500 mg PO DAILY 04/10/21 05/05/24 History release pravastatin 20 mg tablet 20 mg PO HS 04/10/21 05/05/24 History valacyclovir 500 mg tablet 500 mg PO BID 02/26/24 05/05/24 History (Valtrex) calcium 600 mg (as 1 tab PO DAILY 03/01/24 05/05/24 History carbonate)-vitamin D3 5 mcg (200 unit) tablet duloxetine 60 mg capsule,delayed 60 mg PO DAILY 03/08/24 05/05/24 History release losartan 50 mg tablet 50 mg PO DAILY 03/08/24 05/05/24 History omeprazole 40 mg capsule,delayed 40 mg PO BID 03/08/24 05/05/24 History release prednisone 20 mg tablet 20 mg PO DIRECTED 05/05/24 05/05/24 History New Prescriptions to Start Prescriptions: Allergies Allergy/AdvReac Type Severity Reaction Status Date / Time cephalexin (From [email or web address]) Allergy Unknown Verified 05/05/24 10:23 allergy reaction Results Laboratory Findings 05/05/24 10:20 05/05/24 10:20 Abnormal lab findings: Abnormal Labs 05/05/24 05/05/24 05/05/24 10:20 10:27 15:05 RBC 4.42 L MCV 104.6 H MCH 36.7 H Lymph % (Auto) 9.4 L Baso % (Auto) 2.1 H Neut # (Auto) 8.4 H VBG HCO3 22.8 L VBG O2 Saturation 73.5 H VBG Lactic Acid 2.9 H Sodium 129 L Glucose 134 H Lactate 2.2 H Total Bilirubin 1.7 H Assessment and Plan *Assessment and plan (1) Bilateral pneumonia: Status: Acute Qualifiers: Pneumonia type: due to unspecified organism Lung location: unspecified part of lung Qualified Code(s): J18.9 - Pneumonia, unspecified organism Category: Medical Code(s): J18.9 - Pneumonia, unspecified organism (2) Rheumatoid arthritis: Status: Acute Category: Medical Code(s): M06.9 - Rheumatoid arthritis, unspecified (3) Acute hypoxemic respiratory failure: Status: Acute Category: Medical Code(s): J96.01 - Acute respiratory failure with hypoxia Plan Mr. Muse is a 78-year-old male who continues to complete her rheumatoid arthritis has been taking methotrexate, pulmonary fibrosis interstitial lung disease presented to ER with worsening respiratory distress subjective fevers cough and productive phlegm with CT starting bilateral diffuse airspace disease admitted to the hospital and pulmonary was called for further evaluation and management. Patient admits to weeks of worsening respiratory status fatigue and intermittent chills. Admits worsening cough with no significant productive phlegm. CTA upon admission bilateral diffuse dense airspace process. Concern more of infectious than inflammatory etiology at this point of time. Admits compliance with methotrexate, last dose 05/03/24. No evidence of leukocytosis. Hemodynamically stable. COVID-19 flu PCR panel negative. Patient on admission was initiated on broad-spectrum antibiotics including vancomycin cefepime and azithromycin pending culture results. Echocardiogram from November 2023 normal LVEF with diastolic dysfunction. RVSP at 25-30. On initial examination moderate respiratory distress. Saturating 96% on 3 L, weaned to 2 L. Rhonchorous breath sounds. No significant wheezing. Plan: Follow with CRP LDH Comprehensive respiratory viral PCR panel Continue oxygen supplementation to maintain O2 saturation goal of 90% and above Will hold off steroids at this point of time pending infectious workup Continue vancomycin and cefepime pending blood cultures and nasal MRSA PCR Sputum induction DuoNebs every 6 as needed
[2024-05-06 10:29] LABS: C-Reactive Protein 174.7 mg/L (0-4)
[2024-05-06 10:41] LABS: Adenovirus,PCR Not Detected (NotDetected); Bordetella Pertussis Not Detected (NotDetected); Chlamydophila Pneumoniae, PCR Not Detected (NotDetected); Coronavirus 19, PCR Not Detected (NotDetected); Coronavirus 229E Not Detected (NotDetected); Coronavirus NL63 Not Detected (NotDetected); Coronavirus OC43 Not Detected (NotDetected); Coronovirus HKU1,PCR Not Detected (NotDetected); Human Metapneumovirus Not Detected (NotDetected); Influenza A, PCR Not Detected (NotDetected); Influenza AH1, 2009 Not Detected (NotDetected); Influenza AH1, PCR Not Detected (NotDetected); Influenza AH3,PCR Not Detected (NotDetected); Influenza B, PCR Not Detected (NotDetected); Mycoplasma Pneumoniae, PCR Not Detected (NotDetected); Parainfluenza 1, PCR Not Detected (NotDetected); Parainfluenza 2, PCR Not Detected (NotDetected); Parainfluenza 3, PCR Not Detected (NotDetected); Parainfluenza 4, PCR Not Detected (NotDetected); Respiratory Syncytial Virus Not Detected (NotDetected); Rhinovirus/Enterovirus Not Detected (NotDetected)
[2024-05-06 10:55] LABS: Lactate Dehydrogenase 397 U/L (313-618)
[2024-05-06] MEDS: AZITHROMYCIN 500 MG in 0.9 % SODIUM CHLORIDE 250 ML 250 MG IV (11:33)
--- NOTE | 2024-05-06 14:07 | PC.NURSE ---
Pt. aox 3 with some confusion, up with assistance times one, 90's on 02-3L NC, 20g L AC SL, getting iv abx for PNA, bed alarm on, pulmonary following.
[2024-05-06] MEDS: VALACYCLOVIR 500 MG 500 EACH PO ×2 (14:58→20:27)
[2024-05-06] MEDS: VANCOMYCIN/WATER FOR INJ (PEG) 1.5 GM/300 ML PIGGYBACK IV (16:11)
[2024-05-06] MEDS: PRAVASTATIN 20MG TAB 20 MG PO (20:27)
[2024-05-07] VITALS (15 sets, daily range): BP systolic 92–114; BP diastolic 58–84; PULSE 50–97; RESP 17–20; TEMP 36.3–36.9; O2SAT 80–96; BMI 25.7
[2024-05-07] MEDS: IPRATROPIUM/ALBUTEROL 3 ML NEB IH ×5 (00:10→23:49)
[2024-05-07] MEDS: GUAIFENESIN/DEXTROMETHORPHAN 200MG/20MG 10ML UDC 10 ML PO (00:44)
[2024-05-07] MEDS: CEFEPIME HCL 2 GM in 0.9 % SODIUM CHLORIDE 100 ML IV ×2 (06:55→17:05)
[2024-05-07] MEDS: FOLIC ACID 1MG TABLET 1 MG PO (08:20)
[2024-05-07] MEDS: PANTOPRAZOLE 40MG TABLET 40 MG PO ×2 (08:20→20:36)
[2024-05-07] MEDS: DULOXETINE 30MG CAPSULE.DR 60 MG PO (08:20)
[2024-05-07] MEDS: VALACYCLOVIR 500 MG 500 EACH PO ×2 (08:21→20:36)
--- NOTE | 2024-05-07 08:35 | P.PN_ITS ---
Subjective *Date: 05/07/24 *Time: 09:01 Interval history: Patient is feeling better today. He states he still has a cough but his shortness of breath has improved. He was down to 2 L of oxygen but was back up to 3 L this morning. He is able to eat but did not rest well last night. He w as seen by pulmonology yesterday and he wanted to continue antibiotics, get a PCR respiratory panel, and hold off on steroids. Medical Exam Vital signs and Labs for Last 24 Hours: Vital Signs Temp Pulse Pulse Resp BP Pulse Ox O2 Del Method 05/07/24 08:00 97.6 F 50 L 17 114/62 94 L 05/07/24 06:42 Nasal Cannula 05/07/24 06:40 76 05/07/24 06:40 73 05/07/24 06:40 95 Nasal Cannula 05/07/24 05:00 Nasal Cannula 05/07/24 04:00 97.4 F L 78 18 105/59 L 93 L Nasal Cannula 05/07/24 03:00 Nasal Cannula 05/07/24 01:00 Nasal Cannula 05/07/24 00:11 94 H 05/07/24 00:11 95 H 05/07/24 00:11 92 L Nasal Cannula 05/07/24 00:00 97.8 F 69 18 92/59 L 93 L Nasal Cannula 05/06/24 23:00 Nasal Cannula 05/06/24 21:00 Nasal Cannula 05/06/24 20:00 Nasal Cannula 05/06/24 19:51 97.6 F 98 H 20 112/68 92 L Nasal Cannula 05/06/24 19:24 88 05/06/24 19:24 89 05/06/24 19:24 Nasal Cannula 05/06/24 17:34 Nasal Cannula 05/06/24 17:00 Nasal Cannula 05/06/24 15:51 97.5 F L 85 19 98/60 L 94 L Nasal Cannula 05/06/24 14:04 Nasal Cannula 05/06/24 12:30 Nasal Cannula 05/06/24 11:38 97.5 F L 73 18 114/66 94 L Nasal Cannula 05/06/24 11:12 74 16 05/06/24 11:10 76 05/06/24 11:10 74 05/06/24 11:10 94 L Nasal Cannula 05/06/24 10:09 Nasal Cannula 05/06/24 08:45 Nasal Cannula O2 Flow Rate 05/07/24 08:00 05/07/24 06:42 3 05/07/24 06:40 05/07/24 06:40 05/07/24 06:40 2 05/07/24 05:00 3 05/07/24 04:00 2 05/07/24 03:00 3 05/07/24 01:00 3 05/07/24 00:11 05/07/24 00:11 05/07/24 00:11 2 05/07/24 00:00 2 05/06/24 23:00 3 05/06/24 21:00 3 05/06/24 20:00 3 05/06/24 19:51 3 05/06/24 19:24 05/06/24 19:24 05/06/24 19:24 2 05/06/24 17:34 2.5 05/06/24 17:00 2.5 05/06/24 15:51 2.5 05/06/24 14:04 3 05/06/24 12:30 3 05/06/24 11:38 2.5 05/06/24 11:12 05/06/24 11:10 05/06/24 11:10 05/06/24 11:10 2 05/06/24 10:09 3 05/06/24 08:45 4 Intake and Output 05/06/24 05/07/24 05/07/24 19:59 03:59 11:59 Intake Total 1360 / 1830 200 / 1830 270 / 1830 Output Total 0 / 0 0 / 0 0 / 0 Balance 1360 / 1830 200 / 1830 270 / 1830 Intake: Intake, Oral Amount 660 / 1130 200 / 1130 270 / 1130 Intake, Total IV Amount 700 / 700 Cefepime HCl 2 gm In 0.9 % 100 / 100 Sodium Chloride 100 ml @ 200 mls/hr IV Q8H JOHN Rx#:[id number] Vancomycin/Water For Inj (Peg) 600 / 600 1.5 gm In 300 ml @ 150 mls/hr IV Q24H JOHN Rx#:[id number] Output: Output, Urine Amount 0 / 0 0 / 0 0 / 0 Other: Number of Unmeasured Voids 1 1 1 Number of Bowel Movements 1 Weight 184 lb Patient Weight 05/07/24 11:59 Weight 184 lb Laboratory Results - last 24 hr 05/06/24 10:02: Lactate Dehydrogenase 397, C-Reactive Protein 174.7 H 05/06/24 10:32: Chlamy pneumoniae PCR Not detected, Adenovirus (PCR) Not dete cted, B. pertussis DNA (PCR) Not detected, Coronavirus OC43 (PCR) Not detected, Coronavirus HKU1 (PCR) Not detected, Coronavirus 229E (PCR) Not detected, SARS-CoV-2 (PCR) Not detected, Coronavirus NL63 (PCR) Not detected, Human Metapneumovir PCR Not detected, Influenza A (H1) PCR Not detected, Influ A (H1N1/09) PCR Not detected, Influenza A (H3) PCR Not detected, Influenza Type A (PCR) Not detected, Influenza Type B (PCR) Not detected, M. pneumoniae (PCR) Not detected, Parainfluenza 1 (PCR) Not detected, Parainfluenza 2 (PCR) Not detected, Parainfluenza 3 (PCR) Not detected, Parainfluenza 4 (PCR) Not detected, RSV (PCR) Not detected, Entero/Rhino (PCR) Not detected I & O for Labs for Last 24 Hours: Intake & Output 05/04/24 05/05/24 05/06/24 05/07/24 11:59 11:59 11:59 11:59 Intake Total 1060 / 1060 1830 / 1830 Output Total 0 / 0 Balance 1059 / 1059 1830 / 1830 Weight 170 lb 176 lb 4.8 oz 184 lb Microbiology Reports for the Last 24 Hours: Microbiology 05/05/24 11:09 Blood Blood Culture - Preliminary NO GROWTH AFTER 24 HOURS 05/05/24 11:09 Blood Blood Culture - Preliminary NO GROWTH AFTER 24 HOURS Constitutional: Present no acute distress Respiratory: Present crackles (Bilaterally); Absent wheezes Cardiac: Present Reg Rate and Rhythm GI: Present soft and normal bowel sounds; Absent distention or tenderness Extremities: Absent edema, clubbing or cyanosis Skin: Present intact Neuro: Present alert and awake Assessment and Plan *Assessment and plan (1) Bilateral pneumonia: Status: Acute Qualifiers: Lung location: unspecified part of lung Pneumonia type: due to unsp ecified organism Qualified Code(s): J18.9 - Pneumonia, unspecified organism Category: Medical Code(s): J18.9 - Pneumonia, unspecified organism (2) Multifocal pneumonia: Status: Acute Category: Medical Code(s): J18.9 - Pneumonia, unspecified organism (3) Acute hypoxemic respiratory failure: Status: Acute Category: Medical Code(s): J96.01 - Acute respiratory failure with hypoxia (4) Immunocompromised: Status: Acute Category: Medical Code(s): D84.9 - Immunodeficiency, unspecified (5) Generalized weakness: Status: Acute Category: Medical Code(s): R53.1 - Weakness (6) Acute hyponatremia: Status: Acute Category: Medical Code(s): E87.1 - Hypo-osmolality and hyponatremia (7) Encephalopathy: Status: Acute Category: Medical Code(s): G93.40 - Encephalopathy, unspecified (8) Pulmonary fibrosis: Status: Acute Category: Medical Code(s): J84.10 - Pulmonary fibrosis, unspecified (9) Rheumatoid arthritis: Status: Acute Category: Medical Code(s): M06.9 - Rheumatoid arthritis, unspecified (10) Hyperlipemia: Status: Acute Category: Medical Code(s): E78.5 - Hyperlipidemia, unspecified (11) Hypertension: Status: Acute Category: Medical Code(s): I10 - Essential (primary) hypertension (12) ILD (interstitial lung disease): Status: Acute Category: Medical Code(s): J84.9 - Interstitial pulmonary disease, unspecified (13) Fibrosis of lung: Status: Acute Category: Medical Code(s): J84.10 - Pulmonary fibrosis, unspecified Plan Respiratory panel was negative. Will continue antibiotics. Pulmonology will follow. We have turned his oxygen down to 2 L today and will recheck sats in [address] Mionr entry - Saw patient, agree with above note.
--- NOTE | 2024-05-07 09:13 | PC.NURSE ---
PT'S O2 WEANED TO ROOM AIR. WILL CHECK IN APPROX. 20 MIN
--- NOTE | 2024-05-07 09:27 | PC.NURSE ---
Checked patient's O2 sat, and it read 90%. Patient was also asleep and snoring at this time.
--- NOTE | 2024-05-07 09:39 | P.PN_ITS ---
Subjective *Date: 05/07/24 *Time: 11:17 Interval history: No acute respiratory vents overnight. Pulmonology Exam Inpatient Vital signs and Labs for Last 24 Hours: Temp Pulse Resp BP Pulse Ox O2 Del Method O2 Flow Rate 97.6 F 50 L 17 114/62 94 L Nasal Cannula 1 05/07/24 08:00 05/07/24 08:00 05/07/24 08:00 05/07/24 08:00 05/07/24 09:12 05/07/24 09:12 05/07/24 09:12 Laboratory Results - last 24 hr 05/06/24 10:02: Lactate Dehydrogenase 397, C-Reactive Protein 174.7 H 05/06/24 10:32: Chlamy pneumoniae PCR Not detected, Adenovirus (PCR) Not detected, B. pertussis DNA (PCR) Not detected, Coronavirus OC43 (PCR) Not detected, Coronavirus HKU1 (PCR) Not detected, Coronavirus 229E (PCR) Not detected, SARS-CoV-2 (PCR) Not detected, Coronavirus NL63 (PCR) Not detected, Human Metapneumovir PCR Not detected, Influenza A (H1) PCR Not detected, Influ A (H1N1/09) PCR Not detected, Influenza A (H3) PCR Not detected, Influenza Type A (PCR) Not detected, Influenza Type B (PCR) Not detected, M. pneumoniae (PCR) Not detected, Parainfluenza 1 (PCR) Not detected, Parainfluenza 2 (PCR) Not detected , Parainfluenza 3 (PCR) Not detected, Parainfluenza 4 (PCR) Not detected, RSV (PCR) Not detected, Entero/Rhino (PCR) Not detected Temp Pulse Resp BP Pulse Ox O2 Del Method O2 Flow Rate 97.4 F L 77 18 114/63 90 L Nasal Cannula 4 05/06/24 08:00 05/06/24 08:00 05/06/24 08:00 05/06/24 08:00 05/06/24 08:00 05/06/24 08:45 05/06/24 08:45 Laboratory Results - last 24 hr 05/05/24 10:20: WBC 10.5, RBC 4.42 L, Hgb 16.2, Hct 46.3, MCV 104.6 H, MCH 36.7 H, MCHC 35.1, RDW 17.3, Plt Count 261, MPV 8.8, Neut % (Auto) 79.6, Lymph % (Auto) 9.4 L, [place] % (Auto) 8.2, Eos % (Auto) 0.6, Baso % (Auto) 2.1 H, Neut # (Auto) 8.4 H, Lymph # (Auto) 1.0, [place] # (Auto) 0.9, Eos # (Auto) 0.1, Baso # (Auto) 0.2, Sodium 129 L, Potassium 4.1, Chloride 98, Carbon Dioxide 25, Anion Gap 10.1, BUN 19, Creatinine 1.20, Estimated Creat Clear 55, Estimated GFR 59, Est GFR ( Amer) 71, Glucose 134 H, Calcium 8.6, Total Bilirubin 1.7 H, AST 51, ALT 39, Alkaline Phosphatase 110, Troponin I 0.03, NT-Pro-B Natriuret Pep 419, Total Protein 6.6, Albumin 3.7, Globulin 2.9, Albumin/Globulin Ratio 1.3, Hepatitis C Antibody Non reactive, HIV 1&2 Antibody Rapid Nonreactive 05/05/24 10:27: VBG pH 7.41, VBG pCO2 36.6, VBG pO2 37.1, VBG HCO3 22.8 L, VBG Total CO2 24.0, VBG O2 Saturation 73.5 H, VBG Base Excess -1.8, VBG Lactic Acid 2.9 H 05/05/24 10:59: SARS-CoV-2 (PCR) Not detected, Influenza A Untype (PCR) Not detected, Influenza Type B (PCR) Not detected 05/05/24 14:20: Troponin I 0.02 05/05/24 15:05: Lactate 2.2 H 05/05/24 17:04: Lactate 1.3, Troponin I 0.02 I & O for Labs for Last 24 Hours: Intake & Output 05/04/24 05/05/24 05/06/24 05/07/24 23:59 23:59 23:59 23:59 Intake Total 360 / 700 2059 470 / 470 Output Total 0 / 0 0 / 0 Balance 359 / 699 2059 470 / 470 Weight 179 lb 4 oz 176 lb 4.8 oz 184 lb Intake & Output 05/03/24 05/04/24 05/05/24 05/06/24 23:59 23:59 23:59 23:59 Intake Total 360 / 700 700 / 700 Output Total Balance 359 / 699 700 / 700 Weight 179 lb 4 oz 176 lb 4.8 oz Microbiology Reports for the Last 24 Hours: Microbiology 05/05/24 11:09 Blood Blood Culture - Preliminary NO GROWTH AFTER 24 HOURS 05/05/24 11:09 Blood Blood Culture - Preliminary NO GROWTH AFTER 24 HOURS Constitutional: Present moderate distress Head: Present normocephalic and atraumatic ENT: Present normal exam, normal oropharynx and mucous membranes moist Neck: Present normal inspection and full ROM Respiratory: Present respiratory distress, rhonchi and able to speak in complete sentences; Absent wheezes Cardiac: Present S1/S2, Tachycardia and radial pulses present GI: Present soft and distention; Absent tenderness or guarding Skin: Present intact; Absent cyanosis or jaundice Neuro: Present alert, awake and oriented x 3 Extremities: Present normal inspection; Absent clubbing or cyanosis Psychiatric: Present normal affect and cooperative Assessment and Plan *Assessment and plan (1) Bilateral pneumonia: Status: Acute Qualifiers: Lung location: unspecified part of lung Pneumonia type: due to unspecified organism Qualified Code(s): J18.9 - Pneumonia, unspecified organism Category: Medical Code(s): J18.9 - Pneumonia, unspecified organism (2) Rheumatoid arthritis: Status: Acute Category: Medical Code(s): M06.9 - Rheumatoid arthritis, unspecified (3) Acute hypoxemic respiratory failure: Status: Acute Category: Medical Code(s): J96.01 - Acute respiratory failure with hypoxia Plan Mr. Muse is a 78-year-old male who continues to complete her rheumatoid arthritis has been taking methotrexate, pulmonary fibrosis interstitial lung disease presented to ER with worsening respiratory distress subjective fevers cough and productive phlegm with CT starting bilateral diffuse airspace disease admitted to the hospital and pulmonary was called for further evaluation and management. Patient admits to weeks of worsening respiratory status fatigue and intermittent chills. Admits worsening cough with no significant productive phlegm. CTA upon admission bilateral diffuse dense airspace process. Concern more of infectious than inflammatory etiology at this point of time. Admits compliance with methotrexate, last dose 05/03/24. No evidence of leukocytosis. Hemodynamically stable. COVID-19 flu PCR panel negative. Patient on admission was initiated on broad-spectrum antibiotics including vancomycin cefepime and azithromycin pending culture results. Echocardiogram from November 2023 normal LVEF with diastolic dysfunction. RVSP at 25-30. On initial examination moderate respiratory distress. Saturating 96% on 3 L, weaned to 2 L. Rhonchorous breath sounds. No significant wheezing. Interval update No acute respiratory vents overnight. Continue to receive vancomycin and cefepime. Steroids discontinued yesterday. Afebrile. Hemodynamically stable. Slight worsening leukocytosis. Will closely monitor in the setting of improving oxygen requirement CRP significantly elevated from baseline at 174.7 while receiving steroids. Elevated [facility]. LDH within normal limits. Blood cultures no growth so far. Nasal MRSA PCR pending. Comprehensive respiratory viral PCR panel negative. Improving oxygen requirements, on room air saturating 90%. Plan: Chest x-ray from this morning compared, given limitations appear to be improving. Continue oxygen supplementation to maintain O2 saturation goal of 90% and above Will hold off steroids at this point of time pending infectious workup Discontinue vancomycin Continue cefepime pending clinical course and will consider de-escalating. Sputum induction DuoNebs every 6 as needed
--- NOTE | 2024-05-07 09:40 | XR_ITS ---
FINAL REPORT CLINICAL HISTORY: PNM COMPARISON: 03/01/2024 FINDINGS: A single portable view of the chest was obtained. The heart size is within normal limits. There is pulmonary vascular congestion. The mediastinum is within normal limits. Bilateral pulmonary opacities are worrisome for pneumonia. There is postoperative change in the left shoulder. IMPRESSION: Findings worrisome for pneumonia. Reviewed, Interpreted and Dictated by Kuldip Travis III, MD Transcribed by Luisa Aguilar Authenticated and [facility]
[2024-05-07 10:31] LABS: Basophils % 0.2 % (0.1-2.0); Eosinophils % 0.2 % (0.1-12.0); Hematocrit 36.6 % (42.0-52.0); Hemoglobin 12.7 g/dL (14.1-18.0); Lymphocytes # 1.4 K/mm3 (0.7-4.5); Mean Corpuscular HGB Conc 34.8 g/dL (31.8-35.4); Mean Corpuscular Hemoglobin 36.9 pg (27.0-31.2); Mean Corpuscular Volume 106.3 fl (80-94); Mean Platelet Volume 8.8 fl (7.4-10.4); Monocytes # 0.8 K/mm3 (0.1-1.0); Monocytes % 5.4 % (1.7-9.3); Neutrophils # 11.8 K/mm3 (1.8-7.8); Neutrophils % 84.3 % (37.0-80.0); Platelet Count 229 K/mm3 (142-424); Red Blood Count 3.44 M/mm3 (4.60-6.20); Red Cell Distribution Width 17.1 % (11.5-17.5)
--- NOTE | 2024-05-07 10:42 | PC.NURSE ---
Addendum entered by Amita Dow RN 05/07/24 11:03: left a message with MD Minor's nurse that pt has been weaned to room air. Original Note: pt's oxygen dropped to 82% with ambulation to and from the bathroom on room air. After resting pt's oxygen came back up to 95% on room air while sitting up in bed and resting.
[2024-05-07 10:55] LABS: Albumin Level 2.7 g/dl (3.5-5.0); Chloride 107 mmol/L (98-107); Potassium 3.5 mmoL/L (3.5-5.1); Sodium 133 mmol/L (136-145)
[2024-05-07 10:58] LABS: Alanine Aminotransferase 35 U/L (12-78); Albumin/Globulin Ratio 1.1 (1.1-1.8); Alkaline Phosphatase 67 U/L (38-126); Anion Gap 8.5 mEq/L (5-15); Aspartate Amino Transferase 37 U/L (17-59); Bilirubin,Total 0.7 mg/dl (0.2-1.3); Blood Urea Nitrogen 18 mg/dl (9-20); Carbon Dioxide 21 mmol/L (22.0-30.0); Creatinine Clearance Estimated 72 mL/min (50-200); Estimated Glomerular Filt Rate 72 ml/min (>60); GFR (African American) 87 ML/MIN (>60); Globulin 2.4 g/dL (1.3-3.2); Glucose 151 mg/dl (74-100); Total Protein,Serum 5.1 g/dl (6.3-8.2)
[2024-05-07] MEDS: AZITHROMYCIN 500 MG in 0.9 % SODIUM CHLORIDE 250 ML 250 MG IV (11:30)
--- NOTE | 2024-05-07 17:12 | PC.NURSE ---
PT HAS DONE WELL THIS SHIFT. HE WAS WEANED DOWN TO ROOM AIR AT SEVERAL POINTS THROUGH THE DAY. BUT HAD TO BE PLACED BACK ON 1L DUE TO SEVERE DIPS WITH EXERTION. PT'S WAS EDUCATED MULTIPLE TIMES ON NOT TAKING THE PT'S OXYGEN OFF WHEN HE WENT TO THE BATHROOM. LUNG BASES REMAIN DIMINISHED. VSS. AMBULATING WELL WITH STANDBY ASSISTANCE. PT OXYGEN SATS ABOVE 90% WHEN AT REST ON ROOM AIR.
[2024-05-07] MEDS: PRAVASTATIN 20MG TAB 20 MG PO (20:36)
[2024-05-08] VITALS (11 sets, daily range): BP systolic 98–116; BP diastolic 57–75; PULSE 85–109; RESP 16–20; TEMP 36.6–37.1; O2SAT 80–98; BMI 25.6
--- NOTE | 2024-05-08 04:35 | PC.NURSE ---
78 yo male pt admitted with pneumonia. Pt has been A/O X 3. He has denied pain or increased SOA throughout shift. VS have been WNL for pt with 02 sats above 90% with 02 at 2 liters/nc. He has slept on and off throughout shift
[2024-05-08] MEDS: CEFEPIME HCL 2 GM in 0.9 % SODIUM CHLORIDE 100 ML IV ×2 (05:25→18:16)
[2024-05-08] MEDS: IPRATROPIUM/ALBUTEROL 3 ML NEB IH ×4 (06:25→23:02)
--- NOTE | 2024-05-08 07:11 | PC.NURSE ---
Notified by RT that pts 02 required increased to 1.5 liters/nc after beginning to wean due to sats dropping to the high 70s.
--- NOTE | 2024-05-08 08:52 | PC.NURSE ---
spoke with MD about pt being increasingly lethargic and irritable. is concerned about pts change in mental status. ABG ordered.
--- NOTE | 2024-05-08 08:58 | P.PN_ITS ---
Subjective *Date: 05/08/24 *Time: 08:58 Interval history: states patient seems lethargic this morning. He states he slept fine last night. He was noted to be hypoxic and FiO2 was increase to 2 L/min/nc Medical Exam Vital signs and Labs for Last 24 Hours: Vital Signs Temp Pulse Pulse Resp BP Pulse Ox O2 Del Method 05/08/24 07:57 98.2 F 96 H 16 102/62 L 94 L Nasal Cannula 05/08/24 06:51 Nasal Cannula 05/08/24 06:26 109 H 05/08/24 06:26 107 H 05/08/24 06:26 80 L Nasal Cannula 05/08/24 05:00 Nasal Cannula 05/08/24 04:00 98.6 F 99 H 17 98/61 L 96 Nasal Cannula 05/08/24 03:00 Nasal Cannula 05/08/24 00:59 Nasal Cannula 05/08/24 00:00 98.8 F 85 18 99/57 L 98 Nasal Cannula 05/07/24 23:51 85 05/07/24 23:51 85 05/07/24 23:00 Nasal Cannula 05/07/24 21:00 Nasal Cannula 05/07/24 20:00 96 Nasal Cannula 05/07/24 20:00 97.5 F L 97 H 18 114/58 L 96 Nasal Cannula 05/07/24 18:54 Nasal Cannula 05/07/24 18:01 82 05/07/24 18:01 84 05/07/24 18:01 93 L Nasal Cannula 05/07/24 17:00 Nasal Cannula 05/07/24 15:57 97.7 F 86 17 105/65 L 91 L Nasal Cannula 05/07/24 15:00 Nasal Cannula 05/07/24 13:00 Nasal Cannula 05/07/24 11:47 98.5 F 81 20 101/84 L 94 L Nasal Cannula 05/07/24 11:13 80 05/07/24 11:13 77 05/07/24 11:13 80 L Room Air 05/07/24 10:54 Room Air 05/07/24 10:44 95 Room Air 05/07/24 10:41 82 L Room Air 05/07/24 09:12 94 L Nasal Cannula 05/07/24 09:00 Nasal Cannula O2 Flow Rate 05/08/24 07:57 2 05/08/24 06:51 2 05/08/24 06:26 05/08/24 06:26 05/08/24 06:26 1 05/08/24 05:00 2 05/08/24 04:00 05/08/24 03:00 2 05/08/24 00:59 2 05/08/24 00:00 2 05/07/24 23:51 05/07/24 23:51 05/07/24 23:00 2 05/07/24 21:00 2 05/07/24 20:00 2 05/07/24 20:00 2 05/07/24 18:54 1 05/07/24 18:01 05/07/24 18:01 05/07/24 18:01 1 05/07/24 17:00 1 05/07/24 15:57 1 05/07/24 15:00 1 05/07/24 13:00 1 05/07/24 11:47 1 05/07/24 11:13 05/07/24 11:13 05/07/24 11:13 05/07/24 10:54 05/07/24 10:44 05/07/24 10:41 05/07/24 09:12 1 05/07/24 09:00 1 Intake and Output 05/07/24 05/08/24 05/08/24 23:59 07:59 15:59 Intake Total 620 / 1730 100 / 100 Output Total 0 / 0 0 / 0 Balance 620 / 1730 100 / 100 Intake: Intake, Oral Amount 170 / 1280 100 / 100 Intake, Total IV Amount 450 / 450 Azithromycin 500 mg In 0.9 % 250 / 250 Sodium Chloride 250 ml @ 250 mls/hr IV Q24H [facility] Rx#:[id number] Cefepime HCl 2 gm In 0.9 % 200 / 200 Sodium Chloride 100 ml @ 200 mls/hr IV Q12H [facility] Rx#:[id number] Output: Output, Urine Amount 0 / 0 0 / 0 Other: Number of Unmeasured Voids 1 1 Weight 183 lb 4.8 oz Patient Weight 05/08/24 23:59 Weight 183 lb 4.8 oz Laboratory Results - last 24 hr 05/07/24 10:25: WBC 14.0 H D, RBC 3.44 L, Hgb 12.7 L, Hct 36.6 L, MCV 106.3 H, MCH 36.9 H, MCHC 34.8, RDW 17.1, Plt Count 229, MPV 8.8, Neut % (Auto) 84.3 H, Lymph % (Auto) 10.0, [place] % (Auto) 5.4, Eos % (Auto) 0.2, Baso % (Auto) 0.2, Neut # (Auto) 11.8 H, Lymph # (Auto) 1.4, [place] # (Auto) 0.8, Eos # (Auto) 0.0, Baso # (Auto) 0.0, Sodium 133 L, Potassium 3.5, Chloride 107, Carbon Dioxide 21 L, Anion Gap 8.5, BUN 18, Creatinine 1.00, Estimated Creat Clear 72, Estimated GFR 72, Est GFR ( Amer) 87 D, Glucose 151 H, Calcium 8.0 L, Total Bilirubin 0.7, AST 37 D, ALT 35, Alkaline Phosphatase 67, Total Protein 5.1 L, Albumin 2.7 L, Globulin 2.4, Albumin/Globulin Ratio 1.1 I & O for Labs for Last 24 Hours: Intake & Output 05/05/24 05/06/24 05/07/24 05/08/24 23:59 23:59 23:59 23:59 Intake Total 360 / 700 2060 / 2260 1630 / 1730 100 / 100 Output Total 1 / 1 0 / 0 0 / 0 0 / 0 Balance 359 / 699 2060 / 2260 1630 / 1730 100 / 100 Weight 179 lb 4 oz 176 lb 4.8 oz 183 lb 15.965 oz 183 lb 4.8 oz Microbiology Reports for the Last 24 Hours: Microbiology 05/05/24 11:09 Blood Blood Culture - Preliminary NO GROWTH AFTER 48 HOURS 05/05/24 11:09 Blood Blood Culture - Preliminary NO GROWTH AFTER 48 HOURS Constitutional: Present no acute distress Comment:: Awaknes easily to voice, asks when he can go home, not lethagic now Respiratory: Present crackles (Bilaterally); Absent wheezes Cardiac: Present Reg Rate and Rhythm GI: Present soft and normal bowel sounds; Absent distention or tenderness Extremities: Absent edema, clubbing or cyanosis Skin: Present intact Neuro: Present alert and awake Assessment and Plan *Assessment and plan (1) Bilateral pneumonia: Status: Acute Qualifiers: Pneumonia type: due to unspecified organism Lung location: unspecified part of lung Qualified Code(s): J18.9 - Pneumonia, unspecified organism Category: Medical Code(s): J18.9 - Pneumonia, unspecified organism (2) Multifocal pneumonia: Status: Acute Category: Medical Code(s): J18.9 - Pneumonia, unspecified organism (3) Acute hypoxemic respiratory failure: Status: Acute Category: Medical Code(s): J96.01 - Acute respiratory failure with hypoxia (4) Immunocompromised: Status: Acute Category: Medical Code(s): D84.9 - Immunodeficiency, unspecified (5) Generalized weakness: Status: Acute Category: Medical Code(s): R53.1 - Weakness (6) Acute hyponatremia: Status: Acute Category: Medical Code(s): E87.1 - Hypo-osmolality and hyponatremia (7) Encephalopathy: Status: Acute Category: Medical Code(s): G93.40 - Encephalopathy, unspecified (8) Pulmonary fibrosis: Status: Acute Category: Medical Code(s): J84.10 - Pulmonary fibrosis, unspecified (9) Rheumatoid arthritis: Status: Acute Category: Medical Code(s): M06.9 - Rheumatoid arthritis, unspecified (10) Hyperlipemia: Status: Acute Category: Medical Code(s): E78.5 - Hyperlipidemia, unspecified (11) Hypertension: Status: Acute Category: Medical Code(s): I10 - Essential (primary) hypertension (12) ILD (interstitial lung disease): Status: Acute Category: Medical Code(s): J84.9 - Interstitial pulmonary disease, unspecified (13) Fibrosis of lung: Status: Acute Category: Medical Code(s): J84.10 - Pulmonary fibrosis, unspecified Plan Will check ABG this morning, attempt to wean FiO2, patient may need home oxygen.
[2024-05-08 09:23] LABS: ABG Base Excess -0.4 mmol/L (-2.4-2.3); ABG HCO3 22.8 mmhg (22.0-26.0); ABG Oxygen Saturation 91 % (90-100); ABG PO2 53.4 mmhg (80-100); ABG TCO2 23.7 mmhg (23-27)
[2024-05-08 09:25] LABS: Allen's Test Acceptable; Source Left Radial
[2024-05-08] MEDS: VALACYCLOVIR 500 MG 500 EACH PO ×2 (09:49→20:33)
[2024-05-08] MEDS: FOLIC ACID 1MG TABLET 1 MG PO (09:50)
[2024-05-08] MEDS: DULOXETINE 30MG CAPSULE.DR 60 MG PO (09:50)
[2024-05-08] MEDS: PANTOPRAZOLE 40MG TABLET 40 MG PO ×2 (09:50→20:33)
[2024-05-08] MEDS: ACETAMINOPHEN 325MG TAB 650 MG PO ×2 (10:03→20:33)
[2024-05-08] MEDS: AZITHROMYCIN 500 MG in 0.9 % SODIUM CHLORIDE 250 ML 250 MG IV (13:39)
--- NOTE | 2024-05-08 18:54 | PC.NURSE ---
PT HAS DONE FAIR TODAY. HE HAS SLEPT MOST OF THE SHIFT BUT HAS WOKEN UP TO TOUCH AND NAME. NASAL CANNULA IS CURRENTLY ON 3L. LUNG BASES DIMINISHED. NO OTHER COMPLAINTS THIS SHIFT.
[2024-05-08] MEDS: PRAVASTATIN 20MG TAB 20 MG PO (20:33)
[2024-05-09] VITALS (9 sets, daily range): BP systolic 103–133; BP diastolic 54–80; PULSE 86–111; RESP 16–22; TEMP 36.4–37.1; O2SAT 86–95; BMI 25.4
--- NOTE | 2024-05-09 04:22 | PC.NURSE ---
Patient is alert and oriented x4. He presents hard hearing. Patient's hearing aid has remained in his ear this shift; occasional adjusting was made by staff to it due to whistling/feedback. Patient was observed to have eyes closed, respirations even and unlabored on 3 L of oxygen via nasal cannula, and no apparent distress throughout the majority of the night. Patient has gotten up to sit on the side of the bed a couple times to use his urinal; urine has been emptied and documented accordingly. Patient complained once of a headache earlier this shift; Tylenol was given per MAR for relief. Scheduled medications have been administered as appropriately per JUL. Breathing treatments were given by the RT. Patient ambulated to the bathroom independently with supervision to have a bowel movement once this shift; he tolerated ambulation well without difficulties. Upon auscultation of his lungs, clear sounds were heard. Patient's missing teeth were noted. Patient has been having a loosely dry, intermittent cough this shift. Blood pressures have been soft and oxygen saturations > 90%. He has not had any complaints of generalized pain nor any nausea. He was given cheese and peanut butter with crackers for a bedtime snack. At this time, the patient is resting in bed. No acute changes noted thus far. Bed alarm on. Call light within reach.
[2024-05-09] MEDS: CEFEPIME HCL 2 GM in 0.9 % SODIUM CHLORIDE 100 ML IV (05:48)
--- NOTE | 2024-05-09 06:00 | XR_ITS ---
PROCEDURE INFORMATION: Exam: XR Chest Exam date and time: 05/09/2024 6:01 AM Age: 78 years old Clinical indication: Other: Pneumonia; Additional info: Cap follow up TECHNIQUE: Imaging protocol: Radiologic exam of the chest. Views: 1 view. COMPARISON: CR XR CHEST PORTABLE 05/07/2024 10:24 AM FINDINGS: Lungs: The lung volumes are low. Diffuse patchy bilateral airspace opacities have increased when compared to the prior study of 05/07/2024. Pleural spaces: Unremarkable. No pleural effusion. No pneumothorax. Heart/Mediastinum: Moderate cardiomegaly. Bones/joints: Unremarkable. IMPRESSION: The lung volumes are low. Diffuse patchy bilateral airspace opacities have increased when compared to the prior study of 05/07/2024. Moderate cardiomegaly.
[2024-05-09] MEDS: IPRATROPIUM/ALBUTEROL 3 ML NEB IH ×3 (06:33→18:17)
--- NOTE | 2024-05-09 08:55 | EXP.PHA.PN ---
Subjective *Date: 05/09/24 *Time: 08:55 Medical Exam Vital signs and Labs for Last 24 Hours: Vital Signs Temp Pulse Pulse Resp BP Pulse Ox O2 Del Method 05/09/24 07:59 98.7 F 104 H 22 133/68 95 Nasal Cannula 05/09/24 06:45 Nasal Cannula 05/09/24 06:33 94 H 05/09/24 06:33 87 05/09/24 06:33 86 L Nasal Cannula 05/09/24 05:00 Nasal Cannula 05/09/24 04:00 98.3 F 86 16 110/66 90 L Room Air 05/09/24 03:00 Nasal Cannula 05/09/24 01:00 Nasal Cannula 05/09/24 00:00 97.6 F 89 17 103/54 L 90 L Nasal Cannula 05/08/24 23:17 88 05/08/24 23:17 88 05/08/24 23:00 Nasal Cannula 05/08/24 21:00 Nasal Cannula 05/08/24 20:00 88 17 91 L Nasal Cannula 05/08/24 19:45 97.9 F 94 H 17 116/75 91 L Nasal Cannula 05/08/24 18:57 Nasal Cannula 05/08/24 18:42 Nasal Cannula 05/08/24 18:42 89 05/08/24 18:42 89 05/08/24 17:00 Room Air 05/08/24 16:00 97.9 F 90 18 113/63 95 Room Air 05/08/24 15:00 Nasal Cannula 05/08/24 13:00 Nasal Cannula 05/08/24 12:00 98.4 F 97 H 20 111/61 94 L Nasal Cannula 05/08/24 11:15 93 H 05/08/24 11:15 92 H 05/08/24 11:15 88 L Nasal Cannula 05/08/24 11:00 Nasal Cannula 05/08/24 09:00 Nasal Cannula O2 Flow Rate 05/09/24 07:59 3 05/09/24 06:45 3 05/09/24 06:33 05/09/24 06:33 05/09/24 06:33 2 05/09/24 05:00 3 05/09/24 04:00 05/09/24 03:00 3 05/09/24 01:00 3 05/09/24 00:00 05/08/24 23:17 05/08/24 23:17 05/08/24 23:00 3 05/08/24 21:00 3 05/08/24 20:00 3 05/08/24 19:45 2 05/08/24 18:57 3 05/08/24 18:42 2 05/08/24 18:42 05/08/24 18:42 05/08/24 17:00 05/08/24 16:00 05/08/24 15:00 3 05/08/24 13:00 3 05/08/24 12:00 3 05/08/24 11:15 05/08/24 11:15 05/08/24 11:15 2.5 05/08/24 11:00 2.5 05/08/24 09:00 2.5 Intake and Output 05/08/24 05/09/24 05/09/24 23:59 07:59 15:59 Intake Total 220 / 660 140 / 675 535 / 675 Output Total 150 / 150 300 / 300 Balance 70 / 510 -160 / 375 535 / 375 Intake: Intake, Oral Amount 220 / 660 140 / 675 535 / 675 Output: Output, Urine Amount 150 / 150 300 / 300 Other: Number of Unmeasured Voids 0 Number of Bowel Movements 1 1 Weight 82.554 kg Patient Weight 05/09/24 23:59 Weight 82.554 kg Laboratory Results - last 24 hr 05/08/24 08:49: Specimen Source Left radial, O2 % 2.5 lpm nc, ABG pH 7.50 H, ABG pCO2 30.0 L, ABG pO2 53.4 L, ABG HCO3 22.8, ABG Total CO2 23.7, ABG O2 Saturation 91, ABG Base Excess -0.4, Haile Test Acceptable I & O for Labs for Last 24 Hours: Intake & Output 05/06/24 05/07/24 05/08/24 05/09/24 23:59 23:59 23:59 23:59 Intake Total 2059 1630 / 1730 520 / 660 675 / 675 Output Total 0 / 0 0 / 0 150 / 150 300 / 300 Balance 2059 1630 / 1730 370 / 510 375 / 375 Weight 79.968 kg 83.46 kg 83.143 kg 82.554 kg Microbiology Reports for the Last 24 Hours: Microbiology 05/06/24 10:32 Nose - Nasal MRSA Culture - Final The patient's infection will respond to the chosen ABx?: Yes (BLOOD CX = NO GROWTH AT 48 HRS, AFEBRILE OVER 24 HRS.) Is the patient receiving the right drug, dose, and route?: Yes Could a more targeted ABx be ordered?: No
[2024-05-09] MEDS: PANTOPRAZOLE 40MG TABLET 40 MG PO ×2 (09:03→20:07)
[2024-05-09] MEDS: DULOXETINE 30MG CAPSULE.DR 60 MG PO (09:03)
[2024-05-09] MEDS: FOLIC ACID 1MG TABLET 1 MG PO (09:03)
[2024-05-09] MEDS: VALACYCLOVIR 500 MG 500 EACH PO ×2 (09:04→20:07)
[2024-05-09 09:05] LABS: Basophils # 0.1 K/mm3 (0-0.2); Basophils % 0.8 % (0.1-2.0); Eosinophils # 0.2 K/mm3 (0.0-0.4); Eosinophils % 2.5 % (0.1-12.0); Hematocrit 42.7 % (42.0-52.0); Hemoglobin 14.5 g/dL (14.1-18.0); Lymphocytes # 1.2 K/mm3 (0.7-4.5); Lymphocytes % 13.3 % (10-50); Mean Corpuscular HGB Conc 33.9 g/dL (31.8-35.4); Mean Corpuscular Hemoglobin 35.8 pg (27.0-31.2); Mean Corpuscular Volume 105.5 fl (80-94); Mean Platelet Volume 8.2 fl (7.4-10.4); Monocytes # 0.6 K/mm3 (0.1-1.0); Monocytes % 6.4 % (1.7-9.3); Neutrophils # 6.9 K/mm3 (1.8-7.8); Platelet Count 232 K/mm3 (142-424); Red Blood Count 4.05 M/mm3 (4.60-6.20); Red Cell Distribution Width 16.9 % (11.5-17.5); White Blood Count 8.9 K/mm3 (4.8-10.8)
--- NOTE | 2024-05-09 10:13 | EXP.ACUTE.PN ---
Subjective *Date: 05/09/24 *Time: 10:13 Interval history: Patient with no new complaints today, unable to wean supplemental O2 off, anxious to go home. Medical Exam Vital signs and Labs for Last 24 Hours: Vital Signs Temp Pulse Pulse Resp BP Pulse Ox O2 Del Method 05/09/24 09:00 Nasal Cannula 05/09/24 07:59 98.7 F 104 H 22 133/68 95 Nasal Cannula 05/09/24 06:45 Nasal Cannula 05/09/24 06:33 94 H 05/09/24 06:33 87 05/09/24 06:33 86 L Nasal Cannula 05/09/24 05:00 Nasal Cannula 05/09/24 04:00 98.3 F 86 16 110/66 90 L Room Air 05/09/24 03:00 Nasal Cannula 05/09/24 01:00 Nasal Cannula 05/09/24 00:00 97.6 F 89 17 103/54 L 90 L Nasal Cannula 05/08/24 23:17 88 05/08/24 23:17 88 05/08/24 23:00 Nasal Cannula 05/08/24 21:00 Nasal Cannula 05/08/24 20:00 88 17 91 L Nasal Cannula 05/08/24 19:45 97.9 F 94 H 17 116/75 91 L Nasal Cannula 05/08/24 18:57 Nasal Cannula 05/08/24 18:42 Nasal Cannula 05/08/24 18:42 89 05/08/24 18:42 89 05/08/24 17:00 Room Air 05/08/24 16:00 97.9 F 90 18 113/63 95 Room Air 05/08/24 15:00 Nasal Cannula 05/08/24 13:00 Nasal Cannula 05/08/24 12:00 98.4 F 97 H 20 111/61 94 L Nasal Cannula 05/08/24 11:15 93 H 05/08/24 11:15 92 H 05/08/24 11:15 88 L Nasal Cannula 05/08/24 11:00 Nasal Cannula O2 Flow Rate 05/09/24 09:00 3 05/09/24 07:59 3 05/09/24 06:45 3 05/09/24 06:33 05/09/24 06:33 05/09/24 06:33 2 05/09/24 05:00 3 05/09/24 04:00 05/09/24 03:00 3 05/09/24 01:00 3 05/09/24 00:00 05/08/24 23:17 05/08/24 23:17 05/08/24 23:00 3 05/08/24 21:00 3 05/08/24 20:00 3 05/08/24 19:45 2 05/08/24 18:57 3 05/08/24 18:42 2 05/08/24 18:42 05/08/24 18:42 05/08/24 17:00 05/08/24 16:00 05/08/24 15:00 3 05/08/24 13:00 3 05/08/24 12:00 3 05/08/24 11:15 05/08/24 11:15 05/08/24 11:15 2.5 05/08/24 11:00 2.5 Intake and Output 05/08/24 05/09/24 05/09/24 23:59 07:59 15:59 Intake Total 220 / 660 140 / 675 535 / 675 Output Total 150 / 150 300 / 300 Balance 70 / 510 -160 / 375 535 / 375 Intake: Intake, Oral Amount 220 / 660 140 / 675 535 / 675 Output: Output, Urine Amount 150 / 150 300 / 300 Other: Number of Unmeasured Voids 0 Number of Bowel Movements 1 1 Weight 182 lb Patient Weight 05/09/24 23:59 Weight 182 lb Laboratory Results - last 24 hr 05/09/24 07:10: WBC 8.9 D, RBC 4.05 L, Hgb 14.5, Hct 42.7, MCV 105.5 H, MCH 35.8 H, MCHC 33.9, RDW 16.9, Plt Count 232, MPV 8.2, Neut % (Auto) 77.0, Lymph % (Auto) 13.3, [place] % (Auto) 6.4, Eos % (Auto) 2.5, Baso % (Auto) 0.8, Neut # (Auto) 6.9, Lymph # (Auto) 1.2, [place] # (Auto) 0.6, Eos # (Auto) 0.2, Baso # (Auto) 0.1 I & O for Labs for Last 24 Hours: Intake & Output 05/06/24 05/07/24 05/08/2424 23:59 23:59 23:59 23:59 Intake Total 2059 1630 / 1730 520 / 660 675 / 675 Output Total 0 / 0 0 / 0 150 / 150 300 / 300 Balance 2059 1630 / 1730 370 / 510 375 / 375 Weight 176 lb 4.8 oz 183 lb 15.965 oz 183 lb 4.8 oz 182 lb Microbiology Reports for the Last 24 Hours: Microbiology 05/06/24 10:32 Nose - Nasal MRSA Culture - Final Constitutional: Present no acute distress Respiratory: Present crackles (Bilaterally); Absent wheezes Cardiac: Present Reg Rate and Rhythm GI: Present soft and normal bowel sounds; Absent distention or tenderness Extremities: Absent edema, clubbing or cyanosis Skin: Present intact Neuro: Present alert and awake Assessment and Plan *Assessment and plan (1) Bilateral pneumonia: Status: Acute Qualifiers: Pneumonia type: due to unspecified organism Lung location: unspecified part of lung Qualified Code(s): J18.9 - Pneumonia, unspecified organism Category: Medical Code(s): J18.9 - Pneumonia, unspecified organism (2) Multifocal pneumonia: Status: Acute Category: Medical Code(s): J18.9 - Pneumonia, unspecified organism (3) Acute hypoxemic respiratory failure: Status: Acute Category: Medical Code(s): J96.01 - Acute respiratory failure with hypoxia (4) Immunocompromised: Status: Acute Category: Medical Code(s): D84.9 - Immunodeficiency, unspecified (5) Generalized weakness: Status: Acute Category: Medical Code(s): R53.1 - Weakness (6) Acute hyponatremia: Status: Acute Category: Medical Code(s): E87.1 - Hypo-osmolality and hyponatremia (7) Encephalopathy: Status: Acute Category: Medical Code(s): G93.40 - Encephalopathy, unspecified (8) Pulmonary fibrosis: Status: Acute Category: Medical Code(s): J84.10 - Pulmonary fibrosis, unspecified (9) Rheumatoid arthritis: Status: Acute Category: Medical Code(s): M06.9 - Rheumatoid arthritis, unspecified (10) Hyperlipemia: Status: Acute Category: Medical Code(s): E78.5 - Hyperlipidemia, unspecified (11) Hypertension: Status: Acute Category: Medical Code(s): I10 - Essential (primary) hypertension (12) ILD (interstitial lung disease): Status: Acute Category: Medical Code(s): J84.9 - Interstitial pulmonary disease, unspecified (13) Fibrosis of lung: Status: Acute Category: Medical Code(s): J84.10 - Pulmonary fibrosis, unspecified Plan Will attempt to wean supplemental oxygen again today. Deescalate antibiotics today, possible home tomorrow.
[2024-05-09 10:27] LABS: Chloride 101 mmol/L (98-107); Sodium 130 mmol/L (136-145)
[2024-05-09 10:28] LABS: Potassium 4.6 mmoL/L (3.5-5.1)
[2024-05-09 10:30] LABS: Blood Urea Nitrogen 13 mg/dl (9-20); Creatinine Clearance Estimated 71 mL/min (50-200); Estimated Glomerular Filt Rate 82 ml/min (>60); GFR (African American) 99 ML/MIN (>60)
[2024-05-09 10:31] LABS: Anion Gap 8.6 mEq/L (5-15); Carbon Dioxide 25 mmol/L (22.0-30.0); Glucose 81 mg/dl (74-100)
[2024-05-09] MEDS: AZITHROMYCIN 250MG TABLET 500 MG PO (11:28)
--- NOTE | 2024-05-09 15:13 | PC.NURSE ---
PT IS RESTING IN BED. ALERT AND ORIENTED X3. PT HAS OCCASIONAL PERIODS OF CONFUSION. AMBULATES TO THE BATHROOM WITH 1 ASSIST. O2 SATURATION HAS MAINTAINED 90-95% ON 3 L NC. LUNG SOUNDS DIMINISHED WITH BILATERAL CRACKLES. 1+ EDEMA NOTED TO BLE. APPETITE HAS BEEN POOR THIS SHIFT BUT HAS BEEN DRINKING WELL. WILL CONTINUE TO MONITOR.
[2024-05-09] MEDS: PRAVASTATIN 20MG TAB 20 MG PO (20:07)
[2024-05-10] VITALS: BP 112/64; PULSE 96; RESP 16; TEMP 36.9; O2SAT 90
[2024-05-10 04:00] VITALS: BP 110/65; PULSE 92; RESP 17; TEMP 36.5; O2SAT 92; BMI 24.9
--- NOTE | 2024-05-10 04:35 | PC.NURSE ---
Patient is alert and oriented with evident hard hearing (hearing aid remains in place). He was observed to have eyes closed, respirations even and unlabored on 3 L of oxygen via nasal cannula, and no apparent distress throughout the majority of the night. Patient has been ambulating to the bathroom with supervision and assistance. Patient's overexertion was more transparent this shift; wheezing could be heard during the patient's trip to the bathroom and back to bed. He has had both bowel movements and voids. Patient's oxygen flow has not been able to be weaned efficiently from 3 L thus far. Patient's oxygen saturations have continued to remain in the low 90s this shift. His heart rate has been slightly tachycardic this shift. Upon auscultation of his lungs, low crackles could be heard in his left lung; the right lung appeared to sound clear. Patient continues to have a cough. Large scab remains on posterior side of patient's left forearm near elbow. Scheduled medications were administered as appropriately per JUL. He has not expressed having much of an appetite tonight nor a heavy desire to drink fluids. At this time, the patient remains resting in bed. No acute changes noted thus far. Bed alarm on. Call light within reach.
[2024-05-10] MEDS: IPRATROPIUM/ALBUTEROL 3 ML NEB IH (06:14)
[2024-05-10 06:16] VITALS: PULSE 90; PULSE 93; O2SAT 94
[2024-05-10 08:00] VITALS: BP 98/65; PULSE 94; RESP 20; TEMP 36.8; O2SAT 93
--- NOTE | 2024-05-10 08:09 | P.PN_ITS ---
Subjective *Date: 05/10/24 *Time: 09:16 Interval history: Patient states he is feeling fine. He denies pain and shortness of breath. Nursing was unable to wean him from the 3 L of nasal oxygen. Patient is hungry and getting ready to eat breakfast. Patient does ambulate to the bathroom with assistance. Chest x-ray from 05/09/2024 with following results: FINDINGS: Lungs: The lung volumes are low. Diffuse patchy bilateral airspace opacities have increased when compared to the prior study of 05/07/2024. Pleural spaces: Unremarkable. No pleural effusion. No pneumothorax. Heart/Mediastinum: Moderate cardiomegaly. Bones/joints: Unremarkable. IMPRESSION: The lung volumes are low. Diffuse patchy bilateral airspace opacities have increased when compared to the prior study of 05/07/2024. Moderate cardiomegaly. Medical Exam Vital signs and Labs for Last 24 Hours: Vital Signs Temp Pulse Pulse Resp BP Pulse Ox O2 Del Method 05/10/24 06:40 Nasal Cannula 05/10/24 06:16 90 05/10/24 06:16 93 H 05/10/24 06:16 94 L Nasal Cannula 05/10/24 05:00 Nasal Cannula 05/10/24 04:00 97.7 F 92 H 17 110/65 92 L Nasal Cannula 05/10/24 03:00 Nasal Cannula 05/10/24 01:00 Nasal Cannula 05/10/24 00:00 98.4 F 96 H 16 112/64 90 L Nasal Cannula 05/09/24 23:00 Nasal Cannula 05/09/24 21:00 Nasal Cannula 05/09/24 20:00 103 H 90 L Nasal Cannula 05/09/24 20:00 97.9 F 103 H 18 120/80 90 L Nasal Cannula 05/09/24 18:55 Nasal Cannula 05/09/24 18:54 104 H 05/09/24 18:54 105 H 05/09/24 18:44 Nasal Cannula 05/09/24 17:00 Nasal Cannula 05/09/24 15:48 97.8 F 98 H 18 119/57 L 91 L Nasal Cannula 05/09/24 15:00 Nasal Cannula 05/09/24 13:00 Nasal Cannula 05/09/24 11:57 97.9 F 110 H 22 127/68 93 L Nasal Cannula 05/09/24 11:34 111 H 05/09/24 11:34 98 H 05/09/24 11:34 92 L Nasal Cannula 05/09/24 11:00 Nasal Cannula 05/09/24 09:00 Nasal Cannula O2 Flow Rate 05/10/24 06:40 3 05/10/24 06:16 05/10/24 06:16 05/10/24 06:16 3 05/10/24 05:00 3 05/10/24 04:00 3 05/10/24 03:00 3 05/10/24 01:00 3 05/10/24 00:00 2.5 05/09/24 23:00 3 05/09/24 21:00 3 05/09/24 20:00 3 05/09/24 20:00 2.5 05/09/24 18:55 2.5 05/09/24 18:54 05/09/24 18:54 05/09/24 18:44 3 05/09/24 17:00 3 05/09/24 15:48 3 05/09/24 15:00 3 05/09/24 13:00 3 05/09/24 11:57 3 05/09/24 11:34 05/09/24 11:34 05/09/24 11:34 3 05/09/24 11:00 05/09/24 09:00 3 Intake and Output 05/09/24 05/10/24 05/10/24 19:59 03:59 11:59 Intake Total 180 / 180 Output Total 0 / 0 0 / 0 Balance 180 / 180 0 / 180 Intake: Intake, Oral Amount 180 / 180 Output: Output, Urine Amount 0 / 0 0 / 0 Other: Number of Unmeasured Voids 1 1 Number of Bowel Movements 1 1 Weight 178 lb 1.6 oz Patient Weight 05/10/24 11:59 Weight 178 lb 1.6 oz Laboratory Results - last 24 hr 05/09/24 07:10: WBC 8.9 D, RBC 4.05 L, Hgb 14.5, Hct 42.7, MCV 105.5 H, MCH 35.8 H, MCHC 33.9, RDW 16.9, Plt Count 232, MPV 8.2, Neut % (Auto) 77.0, Lymph % (Auto) 13.3, [place] % (Auto) 6.4, Eos % (Auto) 2.5, Baso % (Auto) 0.8, Neut # (Auto) 6.9, Lymph # (Auto) 1.2, [place] # (Auto) 0.6, Eos # (Auto) 0.2, Baso # (Auto) 0.1, Sodium 130 L, Potassium 4.6 D, Chloride 101, Carbon Dioxide 25, Anion Gap 8.6, BUN 13 D, Creatinine 0.90, Estimated Creat Clear 71, Estimated GFR 82, Est GFR ( Amer) 99, Glucose 81, Calcium 8.0 L I & O for Labs for Last 24 Hours: Intake & Output 05/07/24 05/08/24 05/09/24 05/10/24 11:59 11:59 11:59 11:59 Intake Total 1830 / 1830 1260 / 1260 1095 / 1095 180 / 180 Output Total 0 / 0 0 / 0 450 / 450 0 / 0 Balance 1830 / 1830 1260 / 1260 645 / 645 180 / 180 Weight 184 lb 183 lb 4.8 oz 182 lb 178 lb 1.6 oz Microbiology Reports for the Last 24 Hours: Microbiology 05/05/24 11:09 Blood Blood Culture - Preliminary NO GROWTH AFTER 4 DAYS 05/05/24 11:09 Blood Blood Culture - Preliminary NO GROWTH AFTER 4 DAYS Constitutional: Present no acute distress Comment:: Appears comfortable. Respiratory: Present crackles (Bilaterally to midlung [place]born) Cardiac: Present Reg Rate and Rhythm GI: Present soft and normal bowel sounds; Absent distention or tenderness Extremities: Present edema (1+ bilaterally) Neuro: Present alert and awake Assessment and Plan *Assessment and plan (1) Bilateral pneumonia: Status: Acute Qualifiers: Lung location: unspecified part of lung Pneumonia type: due to unspecified organism Qualified Code(s): J18.9 - Pneumonia, unspecified organism Category: Medical Code(s): J18.9 - Pneumonia, unspecified organism (2) Multifocal pneumonia: Status: Acute Category: Medical Code(s): J18.9 - Pneumonia, unspecified organism (3) Acute hypoxemic respiratory failure: Status: Acute Category: Medical Code(s): J96.01 - Acute respiratory failure with hypoxia (4) Immunocompromised: Status: Acute Category: Medical Code(s): D84.9 - Immunodeficiency, unspecified (5) Generalized weakness: Status: Acute Category: Medical Code(s): R53.1 - Weakness (6) Acute hyponatremia: Status: Acute Category: Medical Code(s): E87.1 - Hypo-osmolality and hyponatremia (7) Encephalopathy: Status: Acute Category: Medical Code(s): G93.40 - Encephalopathy, unspecified (8) Pulmonary fibrosis: Status: Acute Category: Medical Code(s): J84.10 - Pulmonary fibrosis, unspecified (9) Rheumatoid arthritis: Status: Acute Category: Medical Code(s): M06.9 - Rheumatoid arthritis, unspecified (10) Hyperlipemia: Status: Acute Category: Medical Code(s): E78.5 - Hyperlipidemia, unspecified (11) Hypertension: Status: Acute Category: Medical Code(s): I10 - Essential (primary) hypertension (12) ILD (interstitial lung disease): Status: Acute Category: Medical Code(s): J84.9 - Interstitial pulmonary disease, unspecified (13) Fibrosis of lung: Status: Acute Category: Medical Code(s): J84.10 - Pulmonary fibrosis, unspecified Plan Will continue to try and wean from oxygen. Otherwise continue with current care. Patient is followed by pulmonology as well. Dr. Minor entry - Saw patient, agree with above note. OK for discharge today with home health and continuous oxygen.
[2024-05-10] MEDS: PANTOPRAZOLE 40MG TABLET 40 MG PO (08:53)
[2024-05-10] MEDS: VALACYCLOVIR 500 MG 500 EACH PO (08:54)
[2024-05-10] MEDS: AZITHROMYCIN 250MG TABLET 500 MG PO (08:54)
[2024-05-10] MEDS: DULOXETINE 30MG CAPSULE.DR 60 MG PO (08:54)
[2024-05-10] MEDS: FOLIC ACID 1MG TABLET 1 MG PO (08:54)
--- NOTE | 2024-05-10 09:17 | PC.NURSE ---
pt 80% on room air at rest. 3L nc reapplied after drop in o2 sat.
--- NOTE | 2024-05-10 09:45 | P.PN_ITS ---
Subjective *Date: 05/10/24 *Time: 12:19 Interval history: Patient denies any new respiratory complaints. Pulmonology Exam Inpatient Vital signs and Labs for Last 24 Hours: Temp Pulse Resp BP Pulse Ox O2 Del Method O2 Flow Rate 98.2 F 94 H 20 98/65 L 93 L Nasal Cannula 3 05/10/24 08:00 05/10/24 08:00 05/10/24 08:00 05/10/24 08:00 05/10/24 08:00 05/10/24 08:00 05/10/24 08:00 Laboratory Results - last 24 hr 05/09/24 07:10: WBC 8.9 D, RBC 4.05 L, Hgb 14.5, Hct 42.7, MCV 105.5 H, MCH 35.8 H, MCHC 33.9, RDW 16.9, Plt Count 232, MPV 8.2, Neut % (Auto) 77.0, Lymph % (Auto) 13.3, Barrow % (Auto) 6.4, Eos % (Auto) 2.5, Baso % (Auto) 0.8, Neut # (A uto) 6.9, Lymph # (Auto) 1.2, Barrow # (Auto) 0.6, Eos # (Auto) 0.2, Baso # (Auto) 0.1, Sodium 130 L, Potassium 4.6 D, Chloride 101, Carbon Dioxide 25, Anion Gap 8.6, BUN 13 D, Creatinine 0.90, Estimated Creat Clear 71, Estimated GFR 82, Est GFR ( Amer) 99, Glucose 81, Calcium 8.0 L Temp Pulse Resp BP Pulse Ox O2 Del Method O2 Flow Rate 97.4 F L 77 18 114/63 90 L Nasal Cannula 4 05/06/24 08:00 05/06/24 08:00 05/06/24 08:00 05/06/24 08:00 05/06/24 08:00 05/06/24 08:45 05/06/24 08:45 Laboratory Results - last 24 hr 05/05/24 10:20: WBC 10.5, RBC 4.42 L, Hgb 16.2, Hct 46.3, MCV 104.6 H, MCH 36.7 H, MCHC 35.1, RDW 17.3, Plt Count 261, MPV 8.8, Neut % (Auto) 79.6, Lymph % (Auto) 9.4 L, Barrow % (Auto) 8.2, Eos % (Auto) 0.6, Baso % (Auto) 2.1 H, Neut # (Auto) 8.4 H, Lymph # (Auto) 1.0, Barrow # (Auto) 0.9, Eos # (Auto) 0.1, Baso # (Auto) 0.2, Sodium 129 L, Potassium 4.1, Chloride 98, Carbon Dioxide 25, Anion Gap 10.1, BUN 19, Creatinine 1.20, Estimated Creat Clear 55, Estimated GFR 59, Est GFR ( Amer) 71, Glucose 134 H, Calcium 8.6, Total Bilirubin 1.7 H, AST 51, ALT 39, Alkaline Phosphatase 110, Troponin I 0.03, NT-Pro-B Natriuret Pep 419, Total Protein 6.6, Albumin 3.7, Globulin 2.9, Albumin/Globulin Ratio 1.3, Hepatitis C Antibody Non reactive, HIV 1&2 Antibody Rapid Nonreactive 05/05/24 10:27: VBG pH 7.41, VBG pCO2 36.6, VBG pO2 37.1, VBG HCO3 22.8 L, VBG Total CO2 24.0, VBG O2 Saturation 73.5 H, VBG Base Excess -1.8, VBG Lactic Acid 2.9 H 05/05/24 10:59: SARS-CoV-2 (PCR) Not detected, Influenza A Untype (PCR) Not detected, Influenza Type B (PCR) Not detected 05/05/24 14:20: Troponin I 0.02 05/05/24 15:05: Lactate 2.2 H 05/05/24 17:04: Lactate 1.3, Troponin I 0.02 I & O for Labs for Last 24 Hours: Intake & Output 05/07/24 05/08/24 05/09/24 05/10/24 23:59 23:59 23:59 23:59 Intake Total 1630 / 1730 520 / 660 675 / 855 180 / 180 Output Total 0 / 0 150 / 150 300 / 300 0 / 0 Balance 1630 / 1730 370 / 510 375 / 555 180 / 180 Weight 183 lb 15.965 oz 183 lb 4.8 oz 182 lb 178 lb 1.6 oz Intake & Output 05/03/24 05/04/24 05/05/24 05/06/24 23:59 23:59 23:59 23:59 Intake Total 360 / 700 700 / 700 Output Total Balance 359 / 699 700 / 700 Weight 179 lb 4 oz 176 lb 4.8 oz Microbiology Reports for the Last 24 Hours: Microbiology 05/05/24 11:09 Blood Blood Culture - Preliminary NO GROWTH AFTER 4 DAYS 05/05/24 11:09 Blood Blood Culture - Preliminary NO GROWTH AFTER 4 DAYS Constitutional: Present moderate distress Head: Present normocephalic and atraumatic ENT: Present normal exam, normal oropharynx and mucous membranes moist Neck: Present normal inspection and full ROM Respiratory: Present respiratory distress, rhonchi and able to speak in complete sentences; Absent wheezes Cardiac: Present S1/S2, Tachycardia and radial pulses present GI: Present soft and distention; Absent tenderness or guarding Skin: Present intact; Absent cyanosis or jaundice Neuro: Present alert, awake and oriented x 3 Extremities: Present normal inspection; Absent clubbing or cyanosis Psychiatric: Present normal affect and cooperative Assessment and Plan *Assessment and plan (1) Bilateral pneumonia: Status: Acute Qualifiers: Lung location: unspecified part of lung Pneumonia type: due to unspecified organism Qualified Code(s): J18.9 - Pneumonia, unspecified organism Category: Medical Code(s): J18.9 - Pneumonia, unspecified organism (2) Rheumatoid arthritis: Status: Acute Category: Medical Code(s): M06.9 - Rheumatoid arthritis, unspecified (3) Acute hypoxemic respiratory failure: Status: Acute Category: Medical Code(s): J96.01 - Acute respiratory failure with hypoxia Plan Mr. Muse is a 78-year-old male who continues to complete her rheumatoid arthritis has been taking methotrexate, pulmonary fibrosis interstitial lung disease presented to ER with worsening respiratory distress subjective fevers cough and productive phlegm with CT starting bilateral diffuse airspace disease admitted to the hospital and pulmonary was called for further evaluation and management. Patient admits to weeks of worsening respiratory status fatigue and intermittent chills. Admits worsening cough with no significant productive phlegm. CTA upon admission bilateral diffuse dense airspace process. Concern more of infectious than inflammatory etiology at this point of time. Admits compliance with methotrexate, last dose 05/03/24. No evidence of leukocytosis. Hemodynamically stable. COVID-19 flu PCR panel negative. Patient on admission was initiated on broad-spectrum antibiotics including vancomycin cefepime and azithromycin pending culture results. Echocardiogram from November 2023 normal LVEF with diastolic dysfunction. RVSP at 25-30. On initial examination moderate respiratory distress. Saturating 96% on 3 L, weaned to 2 L. Rhonchorous breath sounds. No significant wheezing. CRP significantly elevated from baseline at 174.7 while receiving steroids. Elevated [employer]. LDH within normal limits. Nasal MRSA PCR negative. Blood cultures no growth so far. Comprehensive respiratory viral PCR panel negative. Interval update Patient admits stable respiratory symptoms. Chest x-ray from December 2023 bilateral worsening infiltrates. Worsening oxygen requirements, now needing 3 L nasal oxygen supplementation. Negative infectious workup, concern for worsening ILD Plan: Initiate levofloxacin and prednisone 40 mg daily pending clinical follow-up in the clinic in 3 to 4 days postdischarge with a chest x-ray PA lateral prior to clinic visit. Continue oxygen supplementation to maintain O2 saturation goal of 90% and above. On 3 L at rest this morning saturating 92% DuoNebs every 6 as needed. # Thank you for involving pulmonary in this patient care. Will continue to follow.
--- NOTE | 2024-05-10 09:47 | XR_ITS ---
FINAL REPORT CLINICAL HISTORY: SOB COMPARISON: 05/09/2024 FINDINGS: A single portable view of the chest was obtained. The heart size is within normal limits. Pulmonary vascular congestion is persistent. The mediastinum is within normal limits. There are persistent pulmonary opacities which are consistent with pneumonia or edema. There is slight improvement in aeration compared to the prior study. Postoperative changes noted at the left shoulder. The bony thorax is otherwise intact. IMPRESSION: Persistent pulmonary opacities consistent with pneumonia or edema with slight improvement of aeration. Persistent pulmonary vascular congestion. Reviewed, Interpreted and Dictated by Kuldip Travis III, MD Transcribed by Luisa Aguilar Authenticated and . [facility]
--- NOTE | 2024-05-10 10:21 | SW/DCPLANNER ---
Addendum entered by Vivian Christianson 05/11/24 08:20: Steph w/ [facility] stated that patient has been accepted for services. Addendum entered by Vivian Christianson 05/10/24 11:45: Patient information/order has been faxed to [facility]. Original Note: I spoke w/ this patient and his regarding plans once medically stable for discharge. Per MD patient will need home health services set up. Patient/ are agreeable to home health services and do not have an agency preference. I will fax information/order this AM. I have also provided patient's w/ a private sitters and [facility] Resource list if needed in the future. Per MD patient will discharge home this afternoon.
--- NOTE | 2024-05-11 08:41 | EXP.ACUTE.PN ---
Subjective *Date: 05/11/24 *Time: 08:41 Medical Exam Vital signs and Labs for Last 24 Hours: Vital Signs O2 Del Method O2 Flow Rate 05/10/24 11:00 Nasal Cannula 3 05/10/24 09:00 Room Air I & O for Labs for Last 24 Hours: Intake & Output 05/08/24 05/09/24 05/10/24 05/11/24 23:59 23:59 23:59 23:59 Intake Total 520 / 660 675 / 855 700 / 700 Output Total 150 / 150 300 / 300 0 / 0 Balance 370 / 510 375 / 555 700 / 700 Weight 183 lb 4.8 oz 182 lb 178 lb 1.6 oz Microbiology Reports for the Last 24 Hours: Microbiology 05/06/24 10:24 Sputum - Expectorated Sputum Gram Stain - Final 05/05/24 11:09 Blood Blood Culture - Final NO GROWTH AFTER 5 DAYS 05/05/24 11:09 Blood Blood Culture - Final NO GROWTH AFTER 5 DAYS Assessment and Plan *Assessment and plan (1) Bilateral pneumonia: Status: Acute Qualifiers: Pneumonia type: due to unspecified organism Lung location: unspecified part of lung Qualified Code(s): J18.9 - Pneumonia, unspecified organism Category: Medical Code(s): J18.9 - Pneumonia, unspecified organism (2) Multifocal pneumonia: Status: Acute Category: Medical Code(s): J18.9 - Pneumonia, unspecified organism (3) Acute hypoxemic respiratory failure: Status: Acute Category: Medical Code(s): J96.01 - Acute respiratory failure with hypoxia (4) Immunocompromised: Status: Acute Category: Medical Code(s): D84.9 - Immunodeficiency, unspecified (5) Generalized weakness: Status: Acute Category: Medical Code(s): R53.1 - Weakness (6) Acute hyponatremia: Status: Acute Category: Medical Code(s): E87.1 - Hypo-osmolality and hyponatremia (7) Encephalopathy: Status: Acute Category: Medical Code(s): G93.40 - Encephalopathy, unspecified (8) Pulmonary fibrosis: Status: Acute Category: Medical Code(s): J84.10 - Pulmonary fibrosis, unspecified (9) Rheumatoid arthritis: Status: Acute Category: Medical Code(s): M06.9 - Rheumatoid arthritis, unspecified (10) Hyperlipemia: Status: Acute Category: Medical Code(s): E78.5 - Hyperlipidemia, unspecified (11) Hypertension: Status: Acute Category: Medical Code(s): I10 - Essential (primary) hypertension (12) ILD (interstitial lung disease): Status: Acute Category: Medical Code(s): J84.9 - Interstitial pulmonary disease, unspecified (13) Fibrosis of lung: Status: Acute Category: Medical Code(s): J84.10 - Pulmonary fibrosis, unspecified Plan Levaquin added for continued treatment.
--- NOTE | 2024-05-11 10:14 | SW/DCPLANNER ---
Spoke with patient's on the phone. Patient's stated she is aware of his upcoming appointments and that they brought his medicine to the room day of discharge. Patient's stated she has no concerns or questions at this time. Lexy Henrandez
--- NOTE | 2024-05-13 13:42 | P.DS_ITS ---
General Admission date:: 05/05/24 Discharge date: 05/11/24 HPI HPI HPI: 78-year-old with above history and physical with hypoxic respiratory failure intermittent encephalopathy generalized weakness that is worsened over the last several days on top of known diagnosis of interstitial pulmonary fibrosis. Differential includes worsening pulmonary fibrosis with hypoxic respiratory failure and encephalopathy secondary to that, consolidative changes such as with pneumonia, malignancy, pulmonary embolism etc. Will get a contrasted CT scan/CT PE to further evaluate his lung parenchymal disease today. Also will perform a bedside ultrasound as heart failure is also on the differential. Patient will need to be admitted with a new oxygen requirement family's been made aware this will reassess after his initial workup is complete. Septic workup also is being initiated. Reassessment 1254 CT scan performed which I personally interpreted which shows dense consolidation multiple lobes consistent with multifocal pneumonia. I discussed the case with our final assembly and packing supervisor and given the fact that this patient is chronically on methotrexate and is immune compromised will aggressively treat with IV antibiotics including vanc, cefepime, and azithromycin. Patient is stable on 3 to 5 L nasal cannula with his hypoxic respiratory failure. The patient does not have objective evidence of sepsis at the moment. Our final assembly and packing supervisor is comfortable keeping the patient at [place] and our nurse spoke to Dr. Minor about the case who is comfortable admitting this patient for further evaluation and management. (above as per ER physician) Further to above history, the patient has been sick for a few weeks but has been getting progressively worse since Friday with confusion and weakness. He denies any pain. His flu and covid tests were negative. Hospital Course Hospital Course Hospital Course: The patient CTA showed no evidence of pulmonary embolism but it did show bilateral pulmonary opacities consistent with bilateral pneumonia. The patient was admitted and started on Zithromax, cefepime, and vancomycin. Pulmonology was consulted. The final assembly and packing supervisor ordered a respiratory panel and wanted to hold off on steroids pending infectious workup. He ordered a nasal MRSA PCR and wanted DuoNebs every 6 hours. The patient's respiratory panel was negative. Repeat chest x-ray was ordered and the final assembly and packing supervisor felt he appeared to be improving. He recommended discontinuing his vancomycin and continuing cefepime. On 05/08/2024 he was noted to be hypoxic and his FiO2 was increased to 2 L/min per nasal cannula. ABGs were ordered and it was felt patient may need home oxygen. He was unable to be weaned from nasal oxygen and his room air at rest was 80%. The patient's nasal MRSA PCR was negative. The final assembly and packing supervisor was concerned for worsening interstitial lung disease. He initiated Levaquin and prednisone and felt the patient could be discharged, but would need close outpatient follow-up with a chest x-ray prior to his visit. He wanted him continued on supplemental oxygen at home and he also wanted him continue DuoNebs. The patient was stable to be discharged and will follow-up with pulmonology and Dr. Minor. Exam Data for Last 24 hours Vital signs and Labs for Last 24 Hours: Temp Pulse Resp BP Pulse Ox O2 Del Method O2 Flow Rate 98.2 F 94 H 20 98/65 L 93 L Nasal Cannula 3 05/10/24 08:00 05/10/24 08:00 05/10/24 08:00 05/10/24 08:00 05/10/24 08:00 05/10/24 11:00 05/10/24 11:00 Narrative: Constitutional Constitutional: no acute distress *Routine HEENT Exam Head: Present normocephalic and atraumatic Eye: Present EOMI and PERRL ENT: Present mucous membranes moist *Routine Neck Exam Neck: Present supple and full ROM *Routine Respiratory Exam Respiratory: Present crackles (bilateral lower lobes) *Routine Cardiovascular Exam Cardiovascular: Present RRR *Routine Abdominal Exam Abdominal: Present soft and normoactive bowel sounds; Absent tenderness *Routine Rectal Exam Rectal:: deferred *Routine Genitalia Exam Genitalia:: deferred *Routine Extremities Exam Extremities: Absent cyanosis, clubbing or edema *Routine Skin Exam Skin: Present intact; Absent erythema *Routine Neurological Exam Neurological: Present alert and oriented X3 DS: Diagnosis Discharge Diagnosis (1) Bilateral pneumonia: Status: Acute Code(s): J18.9 - Pneumonia, unspecified organism Qualifiers: Pneumonia type: due to unspecified organism Lung location: unspecified part of lung Qualified Code(s): J18.9 - Pneumonia, unspecified organism (2) Multifocal pneumonia: Status: Acute Code(s): J18.9 - Pneumonia, unspecified organism (3) Acute hypoxemic respiratory failure: Status: Acute Code(s): J96.01 - Acute respiratory failure with hypoxia (4) Immunocompromised: Status: Acute Code(s): D84.9 - Immunodeficiency, unspecified (5) Generalized weakness: Status: Acute Code(s): R53.1 - Weakness (6) Acute hyponatremia: Status: Acute Code(s): E87.1 - Hypo-osmolality and hyponatremia (7) Encephalopathy: Status: Acute Code(s): G93.40 - Encephalopathy, unspecified (8) Pulmonary fibrosis: Status: Acute Code(s): J84.10 - Pulmonary fibrosis, unspecified (9) Rheumatoid arthritis: Status: Acute Code(s): M06.9 - Rheumatoid arthritis, unspecified (10) Hyperlipemia: Status: Acute Code(s): E78.5 - Hyperlipidemia, unspecified (11) Hypertension: Status: Acute Code(s): I10 - Essential (primary) hypertension (12) ILD (interstitial lung disease): Status: Acute Code(s): J84.9 - Interstitial pulmonary disease, unspecified Meds Home Medications and Allergies Home Medications ?Medication ?Instructions ?Recorded ?Confirmed ?Type etodolac 400 mg tablet 400 mg PO BID 04/10/21 05/05/24 History folic acid 1 mg tablet 1 mg PO DAILY 04/10/21 05/05/24 History methotrexate sodium 2.5 mg tablet 2.5 mg PO DIRECTED 04/10/21 05/05/24 History niacin 500 mg tablet,extended 500 mg PO DAILY 04/10/21 05/05/24 History release pravastatin 20 mg tablet 20 mg PO HS 04/10/21 05/05/24 History valacyclovir 500 mg tablet 500 mg PO BID 02/26/24 05/05/24 History (Valtrex) calcium 600 mg (as 1 tab PO DAILY 03/01/24 05/05/24 History carbonate)-vitamin D3 5 mcg (200 unit) tablet duloxetine 60 mg capsule,delayed 60 mg PO DAILY 03/08/24 05/05/24 History release losartan 50 mg tablet 50 mg PO DAILY 03/08/24 05/05/24 History omeprazole 40 mg capsule,delayed 40 mg PO BID 03/08/24 05/05/24 History release prednisone 20 mg tablet 20 mg PO DIRECTED 05/05/24 05/05/24 History azithromycin 500 mg tablet 500 mg PO DAILY 3 days #3 tabs 05/10/24 Rx levofloxacin 750 mg tablet 750 mg PO DAILY #5 tabs 05/10/24 Rx New Prescriptions to Start Prescriptions: azithromycin Osman Minor levofloxacin Osman Minor Allergies Allergy/AdvReac Type Severity Reaction Status Date / Time cephalexin (From Keflex) Allergy Unknown Verified 05/05/24 10:23 allergy reaction Discharge Plan Disposition Patient Disposition: Home Health Service Condition: Fair Discharge Order Discharge Orders: Discharge Order (Routine); Ordered 05/10/24 Ordered By: Osman Minor Follow up Plan Follow up with: Osman Minor MD [Primary Care Provider] - 05/17/24 10:30 am Awais Macdonald MD [Physician] - 05/13/24 (CXR PA/Lat prior to visit) Prescriptions/Medication Reconciliation: New azithromycin 500 mg tablet 500 mg PO DAILY 3 Days Qty: 3 0RF levofloxacin 750 mg tablet 750 mg PO DAILY Qty: 5 0RF Continued omeprazole 40 mg capsule,delayed release(DR/EC) 40 mg PO BID Patient Comments: TAKE ONE CAPSULE BY MOUTH TWICE DAILY take first DOSE 30 minutes BEFORE morning meal losartan 50 mg tablet 50 mg PO DAILY Patient Comments: TAKE ONE TABLET BY MOUTH EVERY DAY duloxetine 60 mg capsule,delayed release(DR/EC) 60 mg PO DAILY Patient Comments: TAKE ONE CAPSULE BY MOUTH EVERY DAY prednisone 20 mg tablet 20 mg PO DIRECTED Rx Instructions: Start Date . Take 40mg (2 tab) oral once daily for 28 days followed by 20mg (1 tabs) oral once daily for 28 days followed by 10mg(Half tab) oral once daily for 28 days then stop taking prednisone. methotrexate sodium 2.5 MG tablet 2.5 mg PO DIRECTED Rx Instructions: TAKE 6 TABLETS ON FRIDAY. 3 TABLETS IN THE MORNING AND 3 TABLETS IN THE EVENING. folic acid 1 MG tablet 1 mg PO DAILY etodolac 400 MG tablet 400 mg PO BID pravastatin 20 MG tablet 20 mg PO HS niacin 500 MG tablet extended release 500 mg PO DAILY valacyclovir [Valtrex] 500 mg Tablet 500 mg PO BID calcium carbonate-vitamin D3 600 mg-5 mcg (200 unit) Tablet 1 tab PO DAILY Other Ambulatory Orders: XR chest 2V (Routine) Timeframe: 3 Days Facility: [facility] - Location: Radiology Ordered By: Awais Macdonald Problem Reconciliation Problems Reviewed?: Yes Patient Discharge Instructions ACTIVITY: Continue current activity DIET: continue same diet Additional Instructions: Oxygen at 3 Liters/min/NC Patient Instructions: Pneumonia--Adult, DI for Pneumonia -- Adult Print Language: Mongolian Providers Primary Care Provider: Osman Minor Admit Provider: Osman Minor Attending Provider: Osman Minor
== END 2024-05-10 12:42 | disposition home health service (06) | DRG 193 ==
LOC: ER 12:20 → 2ND 12:46
PROVIDERS: Internal Medicine Pulmonary Disease; Physician Assistant; Admitting Provider Family Medicine; Emergency Provider Student in an Organized Health Care Education/Training Program; PCP Family Medicine; Visit Provider Family Medicine
DX: J18.9 Pneumonia, unspecified organism (principal); J96.01 Acute respiratory failure with hypoxia; D84.9 Immunodeficiency, unspecified; E87.1 Hypo-osmolality and hyponatremia; G93.40 Encephalopathy, unspecified; J84.10 Pulmonary fibrosis, unspecified; M06.9 Rheumatoid arthritis, unspecified
CPT/HCPCS: 36415; 71045; 71275; 80048; 80053; 82803; 83605; 83615; 83880; 84484; 85025; 86140; 86803; 87040; 87070; 87081; 87205; 87389; 87633; 87636; 94640; 94760; 94761; 99291; J0456; J2919; J3372; J7050; J7620; Q9967

== ENCOUNTER 2024-05-17 10:59 | Outpatient (CLI) | payer MEDICARE, SELFPAY ==
--- NOTE | 2024-05-17 11:03 | XR_ITS ---
FINAL REPORT CLINICAL HISTORY: COMMUNITY ACQUIRED PNEUMONIA..cough..soa COMPARISON: 05/10/2024 FINDINGS: 2 views of the chest were obtained . The heart is normal in size. The mediastinum is within normal limits. There is improved diffuse airspace disease consistent with improved pneumonia and/or edema. There is no pleural effusion. There is no pneumothorax. Osseous structures are unremarkable. IMPRESSION: Improved pneumonia and/or edema. Reviewed, Interpreted and Dictated by Gela Matthew MD Transcribed by Gabriella Richmond Authenticated and [facility]
== END 2024-05-17 23:59 | disposition home or self-care (01) ==
LOC: RAD 11:00
PROVIDERS: PCP Family Medicine; Visit Provider Family Medicine
DX: J18.9 Pneumonia, unspecified organism (principal)
CPT/HCPCS: 71046

== ENCOUNTER 2024-05-18 12:39 | Outpatient (CLI) | payer MEDICARE, SELFPAY ==
--- NOTE | 2024-05-18 13:53 | RESP.PFTSS ---
Patient unable to follow commands to do PFT.
== END 2024-05-18 23:59 | disposition home or self-care (01) ==
LOC: RT 12:40
PROVIDERS: PCP Family Medicine; Visit Provider Internal Medicine Pulmonary Disease
DX: R06.09 Other forms of dyspnea (principal)
CPT/HCPCS: 94618

== ENCOUNTER 2024-06-14 09:59 | Outpatient (CLI) | payer MEDICARE, SELFPAY | END 2024-06-14 23:59 | disposition home or self-care (01) | LOC: RT 10:00 | PROVIDERS: PCP Family Medicine; Visit Provider Internal Medicine Pulmonary Disease | DX: R06.09 Other forms of dyspnea (principal) | CPT/HCPCS: 94618 ==

== ENCOUNTER 2024-07-28 07:57 | Outpatient (CLI) | payer MEDICARE, SELFPAY ==
[2024-07-28] MEDS: ALBUTEROL 0.083% 2.5 MG/3 ML NEB IH (08:34)
--- NOTE | 2024-07-28 08:34 | PC.NURSE ---
PFT and 6 Minute Walk Test completed without incident. Albuterol 0.083% given via HHN, per protocol, Pt tolerated tx well.
--- NOTE | 2024-07-28 10:48 | CT_ITS ---
FINAL REPORT TECHNIQUE: Axial CT without IV contrast administration using high resolution protocol. This study was performed with techniques to keep radiation doses as low as reasonably achievable, (ALARA). Individualized dose reduction techniques using automated exposure control or adjustment of mA and/or kV according to the patient''s size were employed. CLINICAL HISTORY: . Pulmonary fibrosis COMPARISON: 02/17/2024 FINDINGS: There is diffuse prominence of the interstitium which is similar to prior exam. There is mild bronchiectasis. There is no acute lung disease. There is no lung mass or adenopathy. There is no pleural or pericardial effusion. IMPRESSION: Stable, extensive presumed pulmonary fibrosis. No acute lung disease or mass. Reviewed, Interpreted and Dictated by Gela Matthew MD Transcribed by Gabriella Richmond Authenticated and [facility]
[2024-07-28 11:31] LABS: Basophils # 0.1 K/mm3 (0-0.2); Basophils % 0.7 % (0.1-2.0); Eosinophils # 0.3 K/mm3 (0.0-0.4); Eosinophils % 2.7 % (0.1-12.0); Hemoglobin 14.3 g/dL (14.1-18.0); Lymphocytes # 1.7 K/mm3 (0.7-4.5); Lymphocytes % 15.7 % (10-50); Mean Corpuscular HGB Conc 33.3 g/dL (31.8-35.4); Mean Corpuscular Hemoglobin 34.8 pg (27.0-31.2); Mean Corpuscular Volume 104.6 fl (80-94); Mean Platelet Volume 10.6 fl (7.4-10.4); Monocytes # 0.7 K/mm3 (0.1-1.0); Neutrophils # 7.8 K/mm3 (1.8-7.8); Neutrophils % 73.5 % (37.0-80.0); Platelet Count 256 K/mm3 (142-424); Red Blood Count 4.11 M/mm3 (4.60-6.20); Red Cell Distribution Width 15.1 % (11.5-17.5); White Blood Count 10.5 K/mm3 (4.8-10.8)
[2024-07-28 12:05] LABS: Alanine Aminotransferase 35 U/L (12-78); Albumin Level 3.7 g/dl (3.5-5.0); Albumin/Globulin Ratio 1.7 (1.1-1.8); Alkaline Phosphatase 91 U/L (38-126); Anion Gap 6.7 mEq/L (5-15); Aspartate Amino Transferase 63 U/L (17-59); Blood Urea Nitrogen 13 mg/dl (9-20); Calcium 8.9 mg/dl (8.4-10.2); Carbon Dioxide 29 mmol/L (22.0-30.0); Chloride 106 mmol/L (98-107); Estimated Glomerular Filt Rate 82 ml/min (>60); GFR (African American) 99 ML/MIN (>60); Globulin 2.2 g/dL (1.3-3.2); Glucose 101 mg/dl (74-100); Potassium 3.7 mmoL/L (3.5-5.1); Sodium 138 mmol/L (136-145); Total Protein,Serum 5.9 g/dl (6.3-8.2)
[2024-07-28 12:11] LABS: C-Reactive Protein 9.3 mg/L (0-4)
[2024-07-29 09:12] LABS: Hep B Core Ab, Total Negative (Negative); Hep B Surface Ab, Qual Non Reactive (.)
[2024-07-31 13:26] LABS: QuantiFERON-TB Gold Plus Negative (Negative)
== END 2024-07-28 23:59 | disposition home or self-care (01) ==
LOC: RT 07:58
PROVIDERS: PCP Family Medicine; Visit Provider Internal Medicine Pulmonary Disease
DX: R06.09 Other forms of dyspnea (principal); J84.9 Interstitial pulmonary disease, unspecified; M06.9 Rheumatoid arthritis, unspecified; D84.9 Immunodeficiency, unspecified; J45.909 Unspecified asthma, uncomplicated; Z11.59 Encounter for screening for other viral diseases
CPT/HCPCS: 36415; 71250; 80053; 85025; 86140; 86480; 86704; 86706; 94060; 94618; 94726; 94729; J7613

== ENCOUNTER 2024-12-23 12:59 | Outpatient (CLI) | payer MEDICARE, SELFPAY ==
--- OUTSIDE RECORDS SUMMARY | 2024-10-27 10:07 | XMS_ITS ---
Author Name [facility] Organization [facility] Address [address] [place] [address] Care Team Providers Care Sap Bi Architect Name Role Phone JULIANA GREENWOOD Primary Care Provider Unavailab le Insurance Providers: All historical and current Section Date Range: From patient's date of to the date document was created. This section includes the names of all active insurance providers for the patient. Insurance Provider Type of Coverage Plan Name Start of Policy Coverage End of Policy Coverage Group Number Member ID Insurance Provider's Telephone Number Policy Rodriguez's Name Patient's Relationship to Policy Rodriguez BS [place] [employer] PREFERRED PROVIDER ORGANIZAT ION (PPO) FRANCISCO [facility] Dec 01, 2015 [id number] HERRINGTO N,CHACHA PATIENT HU[employer]NA MCR (WN) MEDICARE ADVANTAGE [facility] ([facility]) Jul 31, 2018 [id number] HERRINGTO N,CHACHA PATIENT [employer] MCR (WN) MEDICARE ADVANTAGE [facility] ([facility]) Jul 31, 2018 [id number] HERRINGTO N,CHACHA PATIENT MEDICARE PART D (WNR) MEDICARE (M) PART D Jun 02, 2014 PART D [id number] HERRINGTO N,CHACHA PATIENT MEDICARE PART D ([facility]) MEDICARE (M) PART D Jun 02, 2014 PART D [id number] CHACHA LAUGHLIN PATIENT Selected Encounter This section includes the information on record at [place] for the Encounter. Date/Time Encounter Type Encounter Description Reason Provider Source October 27, 2024 02:07 PM BRIEF [facility] TELEPHONE/MEDICIN E ICD-10-CM Z77.29 Contact with and exposure to other hazardous substances ZEINA JAEGER E Encounter Template Text not used by [place] Assessments - Encounter Diagnoses This section includes the primary and secondary diagnoses documented for the Encounter. Date/Time Primary/Secondary Diagnosis Diagnosis Name Provider Source October 27, 2024 02:07 PM PRIMARY Contact with and exposure to other hazardous substances ZEINA JAEGRE [facility] Social History: Smoking Status (Most current) and Tobacco Use (All prior to encounter date) This section includes the most current, and the historical, smoking and tobacco- related health factors from the [place] facility where the Encounter took place. Current Smoking Status This section includes the most current smoking, or tobacco-related health factor, from the [place] facility where the Encounter took place. Date/Time Current Smoking Status Comment Facil ity Apr 27, 2007 09:33 AM V9 QUIT TOBACCO >7 YEARS AGO [facility] Tobacco Use History This section includes a history of the smoking, or tobacco-related health factors, that were collected on or before the date of the Encounter. The data comes from the [place] facility where the Encounter took place. Date/Time Smoking Status/Tobacco Use Comment F acility Apr 08, 2006 11:15 AM HF V9 CURRENT NON-SMOKER [facility] Apr 04, 2005 01:15 PM HF V9 CURRENT NON-SMOKER 1989 [facility] October 21, 2002 11:49 AM HF V9 CURRENT NON-SMOKER 1989 [facility] Encounter Notes: All associated encounter notes This section contains the clinical notes associated to the Encounter. Date/Time Encounter Note(s) Provider Source October 27, 2024 02:08 PM [facility] TR[facility] NOTE: LOCAL TITLE: V9 [facility] TELEPHONE APPOINTMENT NOTE STANDARD TITLE: [facility] REGISTRY NOTE DATE OF NOTE: OCTOBER 27, 2024@14:08 ENTRY DATE: OCTOBER 27, 2024@14:08:29 AUTHOR: ZEINA JAEGER EXP COSIGNER: URGENCY: STATUS: COMPLETED 78y.o. MALE patient presents for Toxic Exposure Screen via telephone in lieu of face to face. Spoke to patient and confirmed patient identity using patient identifiers listed below: Patient Identifiers used: Full Name and Address, , LAST 4 SSN Patient's verbal consent obtained: Yes Patient is in a safe and private Location: Yes EMERGENCY CONTACT: Name: FELICITA KUMARI () Telephone #: Toxic Exposure Screening: The /caregiver was asked if they believe the experienced any toxic exposure(s), such as Airborne Hazards and Open Burn Pit, [place] War related exposures, Agent Coal, Radiation, contaminated water at [place] or other such exposures, while serving in the Armed Forces. [place]/caregiver believes the [place] was exposed to the following while serving in the Armed Forces: Agent Coal: /caregiver was made aware of educational resources that includes information on the Registry Program, presumptive conditions and how to file a claim. Printed information was offered and provided if desired. /caregiver has health or medical concerns related to their concern of environmental exposure. Question: Skin condition doctors believe may be r/t AO Additional information: He was also referred by advanced practice nurse psychotherapist to see a talent engineer Benefits/Claims Questions /caregiver was informed of local point of contact. Contact information for local resources: Benefits/Claim Questions: Veterans Benefits Administration (VBA): [place] Healthcare Enrollment: Health Benefits: [phone] Ext. [phone] Registry Coordinator: Ext. [phone] The following connections were provided to the [place]/caregiver: Clinical Nurse Specialist/Organization ([facility]) [place] [facility] [place] [facility] [place] TIME SPENT:6 MINS. Does not involve medical decision making /melissa/ Zeina Jaeger DNP,SMOKE CONTROL SUPERVISOR,ELECTRONIC INDUSTRIAL CONTROLS MECHANIC-BC [facility] NURSE PRACTITIONER Signed: 10/27/2024 14:21 ZEINA JAEGER [facility]
--- OUTSIDE RECORDS SUMMARY | 2024-10-27 10:07 | XMS_ITS | Continuity of Care Document ---
Author Name [facility] Organization [facility] Care Team Providers Care Principal Android Developer Name Role Phone [facility] Unavailable Unavailable Problems Combined list of problems from Department of Defense and [facility] Affairs facilities. It does not include entries that were removed or entered in error. Problem Status Onset Date Problem Type Date of Resolution Comments Source FRACTURED NOSE Inactive 997 Condition 10/21/2002 October 21, 2002 Entered By: MOISES VU Comment: s/p repair PSYCHIATRIC TONSILLECTOMY Inactive 951 Condition 10/21/2002 PSYCHIATRIC Exposure to potentially hazardous substance Active Condition PS[facility]RIC Gastroesophageal reflux disease (SNOMED CT 704015684) Active Condition [facility] Hearing loss (SNOMED CT 88427728) Active Condition October 21, 2002 Entered By: MOISES VU Comment: s/p surgery but he doesn't know what kind of surgery PSYCHIATRIC Hyperlipidemia (SNOMED CT 00539191) Active Condition [facility] Hyperplastic polyp of intestine Active Condition Jul 24, 2015 Entered By: ZION GREENWOOD B Comment: colonoscopy 07/2015; repeat in 10 yrs [facility] Osteoarthritis * (ICD-9-CM 715.90) Active Condition [place] Pain of right shoulder joint Active Condition [facility] Pure hypercholesterolemia Active Condition [facility] Rheumatoid arthritis (SNOMED CT 51277769) Active Condition [facility] Diagnosis: ICD-10-CM Z77.29 Contact with and exposure to other hazardous substances Active Diagnosis [facility] Diagnosis: ICD-10-CM Z46.1 Encounter for fitting and adjustment of hearing aid Active Diagnosis [facility] Diagnosis: ICD-10-CM H90.3 Sensorineural hearing loss, bilateral Active Diagnosis [facility] Medications Combined list of outpatient medications from Department of Defense and Veterans Affairs facilities.Medications provided include 1) outpatient medications from the last 15 months, and 2) patient-reported medications. Medication Details Route Status Patient Instructions Prescription Expires Prescription Number Last Dispense Date Ordering Provider Order Date Order Qty Source CALCIUM 600MG W/ VIT D 400UNIT TAB TAKE TWO TABLETS BY MOUTH DAILY ORAL ACTIVE JULIANA GREENWOOD 2011 [place] [facility] DICLOFENAC NA 1% GEL,TOP APPLY 2 GRAM STRIP TO AFFECTED AREA EVERY 6 HOURS NEEDED [place] L ACTIVE JULIANA GREENWOOD 2020 [place] [facility] DULOXETINE HCL 60MG CAP,EC TAKE 1 CAPSULE BY MOUTH DAILY ORAL ACTIVE JULIANA GREENWOOD 2015 [place] [facility] ETODOLAC 400MG TAB TAKE ONE TABLET BY MOUTH TWICE A DAY ORAL ACTIVE JULIANA GREENWOOD 2012 [place] [facility] FOLIC ACID 1MG TAB TAKE ONE TABLET BY MOUTH EVERY MORNING ORAL ACTIVE JULIANA GREENWOOD 2011 [place] [facility] METHOTREXAT E NA 2.5MG TAB TAKE SIX TABLETS BY MOUTH EVERY SEVEN DAYS ORAL ACTIVE JULIANA GREENWOOD 2018 [place] [facility] NIACIN (SLO-NIACIN ) 500MG TAB,SA TAKE ONE TABLET BY MOUTH AT BEDTIME ORAL ACTIVE JULIANA GREENWOOD 2011 [place] [facility] OMEPRAZOLE 20MG CAP,EC TAKE 1 CAPSULE BY MOUTH EVERY DAY 30 MINUTES BEFORE A MEAL ORAL ACTIVE GUILLERMINA HAGEN 2016 [place] [facility] PRAVASTATIN NA 20MG TAB TAKE ONE TABLET BY MOUTH AT BEDTIME ORAL ACTIVE JULIANA GREENWOOD 2012 [place] [facility] Immunizations Combined list of available immunizations from the Department of Defense and Veterans Affairs facilities. Immunization Series Date Given Administered By Site Reaction Lot Number CVX Code Drug Hi Lift Operator Status Comments Source ZOSTER RECOMBINANT 1 2020 NONE 187 complet ed [place] [facility] INFLUENZA, INJECTABLE, QUADRIVALENT, PRESERVATIVE FREE 2020 150 complet ed Booster for Series, [place] [facility] COVID-19 (MODERNA), MRNA, LNP-S, PF, 100 MCG/0.5 ML DOSE 2 2020 207 complet ed [place] [facility] COVID-19 (MODERNA), MRNA, LNP-S, PF, 100 MCG/0.5 ML DOSE 1 2020 207 complet ed [place] [facility] HEP A, ADULT 2018 52 complet ed [place] [facility] INFLUENZA, SEASONAL, INJECTABLE 2018 141 complet ed [place] [facility] INFLUENZA, SEASONAL, INJECTABLE 2017 141 complet ed [place] [facility] TDAP (HISTORICAL) 2016 115 complet ed [place] [facility] PNEUMOCOCCAL POLYSACCHARID E PPV23 2016 33 complet ed [place] [facility] INFLUENZA A & B (HISTORICAL) 2016 88 complet ed [place] [facility] PNEUMOCOCCAL CONJUGATE PCV 13 2015 133 complet ed [place] [facility] INFLUENZA A & B (HISTORICAL) 2015 88 complet ed [place] [facility] [id number] (HISTORICAL) 2014 133 complet ed [place] [facility] PNEUMOCOCCAL CONJUGATE PCV 13 2014 133 complet ed written [place] [facility] INFLUENZA A & B (HISTORICAL) 2014 88 complet ed [place] [facility] TD(ADULT) UNSPECIFIED FORMULATION 2014 139 complet ed [place] [facility] INFLUENZA A & B (HISTORICAL) 2013 88 complet ed [place] [facility] TD(ADULT) UNSPECIFIED FORMULATION 2013 139 complet ed [place] [facility] INFLUENZA A & B (HISTORICAL) 2012 88 complet ed [place] [facility] TD(ADULT) UNSPECIFIED FORMULATION 2012 139 complet ed [place] [facility] INFLUENZA A & B (HISTORICAL) 2010 88 complet ed [place] [facility] PNEUMOCOCCAL, UNSPECIFIED FORMULATION 2009 109 complet ed [place] [facility] INFLUENZA A & B (HISTORICAL) 2009 88 complet ed [place] [facility] INFLU[facility] A & B (HISTORICAL) 2006 88 complet ed no reaction [place] [facility] INFLU[facility] A & B (HISTORICAL) 2004 NONE 88 complet ed [place] TD(ADULT) UNSPECIFIED FORMULATION 2002 139 complet ed [place] [facility] Encounters Combined list of: 1) Encounters from Department of Veterans Affairs facilities going backup to the last 18 months, not all [place] inpatient encounters are included; 2) Encounters from the Department of Defense facilities going backup to 280 months. Location Location Details Encounter Type Encounter Number Reason For Visit Attending Provider ADM Date DC Date Status Disposition Source [facility] Outpatient Encounter [id number] 02/02 [place] [facility] HEARING AID FITTING/CH ECKING [id number] Diagnos is: ICD-10- CM Z46.1 Encount er for fitting and adjustm ent of hearing aid Sherlyn MG YLER 07/05 [place] HEARING AID CHECK [place] [id number] Diagnos is: ICD-10- CM H90.3 Sensori neural hearing loss, bilater al Sherlyn MG YLER 08/04 [place] [facility] HEARING AID FITTING/CH ECKING [id number] Diagnos is: ICD-10- CM Z46.1 Encount er for fitting and adjustm ent of hearing aid Sherlyn MG YLER 09/01 [place] [facility] Outpatient Encounter [id number] 10/20 [place] [facility] Outpatient Encounter [id number] 10/20 [place] [facility] Outpatient Encounter [id number] 10/20 [place] [facility] BRIEF COMUNICAJ TECH-BSD [facility] [id number] Diagnos is: ICD-10- CM Z77.29 Contact with and exposur e to other [facility] SHEILA Tom 10[facility]27 [place] [facility] Social History Combined list of available smoking, tobacco, and other social history from Department of Defense and Veterans Affairs facilities. Social History Type Response Date Comment Sourc e Tobacco smoking status NHIS [place]-TO[place]AC[place] FORMER USER 05/16/2020 [facility] of [facility]/16[facility]2020 [facility] OR MORE 04/23/2019 [facility] 05/21/2018 [facility] History of tobacco use V9 QUIT TOBACCO >7 YEARS AGO 04/22/2017 [facility] History of tobacco use V9 QUIT TOBACCO >7 YEARS AGO 04/23/2016 [facility] History of tobacco use V9 QUIT TOBACCO >7 YEARS AGO 04/26/2015 [facility] History of tobacco use V9 QUIT TOBACCO >7 YEARS AGO 04/20/2014 [facility] History of tobacco use V9 QUIT TOBACCO >7 YEARS AGO 04/14/2013 [facility] History of tobacco use V9 QUIT TOBACCO >7 YEARS AGO 11/26/2011 [facility] History of tobacco use V9 QUIT TOBACCO >7 YEARS AGO 04/17/2010 [facility] History of tobacco use V9 QUIT TOBACCO >7 YEARS AGO 04/27/2007 [facility] History of tobacco use HF V9 CURRENT NON-SMOKER 04/08/2006 [facility] History of tobacco use HF V9 CURRENT NON-SMOKER 04/04/20051989 [facility] History of tobacco use HF V9 CURRENT NON-SMOKER 10/21/20021989 [facility]
--- OUTSIDE RECORDS SUMMARY | 2024-12-23 13:02 | XMS_ITS | Clinical Summary ---
Author Organization [facility] yste Address [address] [place] [address] Care Team Providers Care Learning And Development Coordinator Name Role Phone Unavailable Primary Care Provider Unavailabl e Social History Tobacco Use Types Packs/Day Years Used Date Smoking Tobacco: Never Assessed Abuse Screen Answer Date Recorded Unsafe at Home or Work/School Not on file Feels Threatened by Someone? Not on file 03/2023 Does Anyone Keep You from Co ntacting Others or Doint Things Outside the Home? Not on file 03/11/2023 Physical Sign of Abuse Present Not on file 1 Housing Stability Answer Date Recorded Current Living Arrangements Not on file 03/02 Potentially Unsafe Housing Conditions Not on terri e 03/11/2023 Family and Community Support Answer Vito e Recorded Help with Day-to-Day Activities Not on file 03/11/2023 Lonely or Isolated Not on file 03/11/2023 Employment Answer Date Recorded Do you want help finding or keeping work or a merline b? Not on file 03/11/2023 Disabilities Answer Date Recorded Concentrating, Remembering, or Making Decisions Difficulty Not on file 03/11/2023 Doing Errands Independently Difficulty Not on fi le 03/11/2023 Education Answer Date Recorded Help with school or training? Not on file Preferred Language Not on file 03/11/2023 Sex and Gender Information Value Date Recorded Sex Assigned at Not on file Legal Sex Male 1:41 PM EDT Gender Identity Not on file Sexual Orientation Not on file Plan of Treatment Health Maintenance Due Date Last Done Comments ANNUAL PHYSICAL 1945 HEPATITIS C SCREENING 1945 TDAP/TD VACCINES (1 - Tdap) 1964 Pneumococcal Vaccine 50+ (1 of 1 - PCV) 12/07/1995 ZOSTER VACCINE (1 of 2) 12/07/1995 RSV Vaccine - Adults (1 - 1-dose 75+ series) 07/07/202 1 COVID-19 Vaccine ( season) 2024 INFLUENZA VACCINE 03/02/2025
--- OUTSIDE RECORDS SUMMARY | 2024-12-23 13:02 | XMS_ITS | Data Portability ---
Author Organization [facility] SWETHA Lares DE KALB CLOSED Address [address] [place] [address] Assessment No assessment recorded. Plan of Treatment Reminders Order Date Submit Date Provider Last Modified By Organization Details Last Modified Time Details Appointments RHEUM RECHECK 2024 11:15A Navya CARRILLO MD Not available Not available Not available Lab CHRISTINE (antinucl ear antibodie s) titer + pattern, ifa, serum 2024 025 [facility], [address] [place] [address], [id number], 11/15/2024 16:25:51 sjogren antibody panel, serum 2024 025 [facility], [address] [place] [address], [address], 11/13/2024 14:08:08 C3 (compleme nt), serum or plasma 2024 025 [facility], [address] [place] [address], [address], 11/15/2024 15:54:59 C4 (compleme nt), serum or plasma 2024 025 [facility], [address] [place] [address], [address], 11/15/2024 15:54:57 protein electroph oresis panel, serum or plasma 2024 025 [facility], [address] [place] [address], [address], 11/16/2024 10:25:37 rf (rheumato id factor), serum 2024 [facility], [address] [place] [address], [address], 11/12/2024 17:28:42 ccp (cyclic citrullin ated peptide) iga+igg, serum 2024 [facility], [address] [place] [address], [address], 11/16/2024 16:41:44 hepatitis (A+B+C) panel, serum 2024 [facility], [address] [place] [address], [address], 11/12/2024 17:19:15 uric acid, serum or plasma [address] [place] [address] Laboratory, [address] [place] [address], [address], 11/12/2024 17:28:41 magnesium , QN, serum or plasma 2024 [facility], [address] [place] [address], [address], 11/12/2024 17:28:36 iron + total iron-bind ing capacity (TIBC), serum 2024 [facility], [address] [place] [address], [address], 11/12/2024 17:28:37 ferritin, serum or plasma [address] [place] [address] Laboratory, [address] [place] [address], [address], 11/12/2024 17:28:39 PTH (parathyr oid hormone), intact + calcium, serum or plasma 2024 025 [facility], [address] [place] [address], [address], 11/12/2024 17:19:18 CBC w/ auto diff 2024 025 [facility], [address] [place] [address], [address], 11/12/2024 16:01:36 CMP, serum or plasma 2024 025 [facility], [address] [place] [address], [address], 11/12/2024 17:28:38 Referral physical therapist referral 2024 025 [email or web address] [facility], [facility] [facility] [address], [place], [address], 11/26/2024 08:07:40 Procedures None recorded. Surgeries None recorded. Imaging XR, shoulder, 2 or more view - Eval for inflammat ory arthritis , chondroca lcinosis 2024 025 [facility], [address] [place] [address], [address], 11/12/2024 15:44:57 XR, wrist + hand - Eval for inflammat ory arthritis - chondroca lcinosis, rheumatoi d arthritis 2024 025 [facility], [address] [place] [address], [address], 11/12/2024 15:45:57 Medication Orders None recorded. Patient TargetsNo targets recorded. Patient Instructions Encounter Date Encounter Id Patient Instructions Last Modified By Organization Details Last Modified Time 11/12/2024 [id number] medical record request* - Hx pulmonary fibrosis. Please fax last 2 office notes. Thank you [email or web address] Not available 11/22/2024 08:05:56 Follow up 6-8 weeks after initiation of PT A total of 65 minutes was spent on this patient encounter. Time spent includes some or all of the following, both hxub-cy-zqua time and non jsyo-dn-edis time, but is not limited to: Preparing to see the patient and reviewing records Discussion or coordination of car with other health care director rn Reviewing records or discussing history of plan with colleagues Obtaining and/or reviewing the history Individual interpretation of results not billed by me Performing a medically appropriate examination Counseling patient and/or caregiver Ordering of unique tests, medications, referrals or procedures Documentation within the EHR [email or web address] Not available 11/14/2024 12:30:05 Reason for Referral Physical Therapist Referral for Chronic pain of right upper limb Chronic right shoulder pain, limited range of motion Referring Physician: Shaq Carrillo, Rheumatology, Encounter Date: 11/12/2024 Results Created Date Observation Date Name Description Value Unit Range Abnormal Flag Note LastModifiedBy Organization Detail LastModifiedTime 11/13/1911/12/2024 COMPL ETE BLOOD COUNT white blood cells 16.5 10*3/ uL 3.8-10 .8 high Not Available [facility] [address] [place] [address], [address], 11/12/2024 16:01:36 11/13/19 25 11/12/2024 COMPL ETE BLOOD COUNT red blood cells 5.02 10*6/ uL 4.20-5 .80 normal Not Available [facility] [address] [place] [address], [address], 11/12/2024 16:01:36 11/13/19 25 11/12/2024 COMPL ETE BLOOD COUNT hemoglobin 16.7 g/dL 14.0-1 8.0 normal Not Available [facility] [address] [place] [address], [address], 11/12/2024 16:01:36 11/13/19 25 11/12/2024 COMPL ETE BLOOD COUNT hematocrit 49.4 % 40.0-5 2.0 normal Not Available [facility] [address] [place] [address], [address], 11/12/2024 16:01:36 11/13/19 25 11/12/2024 COMPL ETE BLOOD COUNT MCV 99 fL 80-100 normal Not Available [facility] [address] [place] [address], [address], 11/12/2024 16:01:36 11/13/19 25 11/12/2024 COMPL ETE BLOOD COUNT MCH 33 pg 26-35 normal Not Available [facility] [address] [place] [address], [address], 11/12/2024 16:01:36 11/13/19 25 11/12/2024 COMPL ETE BLOOD COUNT MCHC 34 g/dL 32-36 normal Not Available [facility] [address] [place] [address], [address], 11/12/2024 16:01:36 11/13/19 25 11/12/2024 COMPL ETE BLOOD COUNT RDW 18.7 % 11.0-1 5.0 high Not Available [facility] [address] [place] [address], [address], 11/12/2024 16:01:36 11/13/19 25 11/12/2024 COMPL ETE BLOOD COUNT MPV 8.1 fL 6.2-10 .5 normal Not Available [facility] [address] [place] [address], [address], 11/12/2024 16:01:36 11/13/19 25 11/12/2024 COMPL ETE BLOOD COUNT platelet count 313 10*3/ uL 150-40 0 normal Not Available [facility] [address] [place] [address], [address], 11/12/2024 16:01:36 11/13/19 25 11/12/2024 COMPL ETE BLOOD COUNT neutrophil,a bsolute 15.1 10*3/ uL 1.6-8. 4 high Not Available [facility] [address] [place] [address], [address], 11/12/2024 16:01:36 11/13/19 25 11/12/2024 COMPL ETE BLOOD COUNT lymphocyte,a bsolute 1.2 10*3/ uL 0.4-5. 1 normal Not Available [facility] [address] [place] [address], [address], 11/12/2024 16:01:36 11/13/19 25 11/12/2024 COMPL ETE BLOOD COUNT monocyte,abs olute 0.2 10*3/ uL 0.0-1. 2 normal Not Available [facility] [address] [place] [address], [address], 11/12/2024 16:01:36 11/13/19 25 11/12/2024 COMPL ETE BLOOD COUNT eosinophil,a bsolute 0.0 10*3/ uL 0.0-0. 8 normal Not Available [facility] [address] [place] [address], [address], 11/12/2024 16:01:36 11/13/19 25 11/12/2024 COMPL ETE BLOOD COUNT basophil,abs olute 0.0 10*3/ uL 0.0-0. 3 normal Not Available [facility] [address] [place] [address], [address], 11/12/2024 16:01:36 11/13/19 25 11/12/2024 COMPL ETE BLOOD COUNT % neutrophils 91.4 % 42.0-7 8.0 high Not Available [facility] [address] [place] [address], [address], 11/12/2024 16:01:36 11/13/19 25 11/12/2024 COMPL ETE BLOOD COUNT % lymphocytes 7.0 % 11.0-4 7.0 low Not Available [facility] [address] [place] [address], [address], 11/12/2024 16:01:36 11/13/19 25 11/12/2024 COMPL ETE BLOOD COUNT % monocytes 1.0 % 0.0-11 .0 normal Not Available [facility] [address] [place] [address], [address], 11/12/2024 16:01:36 11/13/19 25 11/12/2024 COMPL ETE BLOOD COUNT % eosinophils 0.3 % 0.0-7. 0 normal Not Available [facility] [address] [place] [address], [address], 11/12/2024 16:01:36 11/13/19 25 11/12/2024 COMPL ETE BLOOD COUNT % basophils 0.3 % 0.0-3. 0 normal Not Available [facility] [address] [place] [address], [address], 11/12/2024 16:01:36 11/13/19 25 11/12/2024 COMPL ETE BLOOD COUNT nucleated red cells 0.0 % 0.0-0. 9 normal Not Available [facility] [address] [place] [address], [address], 11/12/2024 16:01:36 11/13/19 25 11/12/2024 COMPL ETE BLOOD COUNT nucleated RBCs, absolute 0.00 10*3/ uL not estab. normal Not Available [facility] [address] [place] [address], [address], 11/12/2024 16:01:36 11/13/19 25 11/12/2024 HEPAT ITIS PANEL hepatitis A Ab, IgM NONREA CTIVE nonrea ctive normal Not Available [facility] [address] [place] [address], [address], 11/12/2024 17:19:15 11/13/19 25 11/12/2024 HEPAT ITIS PANEL hepatitis B surface Ag NONREA CTIVE nonrea ctive normal Not Available [facility] [address] [place] [address], [address], 11/12/2024 17:19:15 11/13/19 25 11/12/2024 HEPAT ITIS PANEL hepatitis B core Ab,IgM NONREA CTIVE nonrea ctive normal Not Available [facility] [address] [place], [address], 11/12/2024 17:19:15 11/13/19 25 11/12/2024 HEPAT ITIS PANEL hcab, reflex viral RNA qt NONREA CTIVE nonrea ctive normal Antib odies to HCV were not detec norm; does not exclu de the possi bilit y of expos ure to HCV. Not Available [facility] [address] [place], [address], 11/12/2024 17:19:15 11/13/19 25 11/12/2024 PTH, INTAC T WITH CA PTH, intact 40.0 pg/mL 15.0-6 5.0 normal INTER PRETI VE GUIDE ===== ===== ===== ===== ===== ===== ===== ===== ===== ===== ===== === PTH CALCI UM CONDI TION ===== ===== ===== ===== ===== ===== ===== ===== ===== ===== ===== = Brigida l Brigida l Brigida l Parat hyroi d _ Low or Low Hypop eugene yroid ism Low Brigida l _ Brigida l or High Prima ry Hyper parat hyroi dism High __ High Brigida l or Secon griselda Hyper parat hyroi dism Low __ High High Terti dani Hyper parat hyroi dism __ Low or High Non-P eugene yroid Hyper calce sabra Low Brigida l ===== ===== ===== ===== ===== ===== ===== ===== ===== ===== ===== ==== Not Available [facility] [address] [place] [address], [address], 11/12/2024 17:35:44 11/13/1911/12/2024 PTH, INTAC T WITH CA calcium 9.8 mg/dL 8.6-10 .2 normal Not Available [facility] [address] [place] [address], [address], 11/12/2024 17:35:44 11/13/19 25 11/12/2024 MAGNE SIUM magnesium 2.5 mg/dL 1.6-2. 6 normal Not Available [facility] [address] [place], [address], 11/12/2024 17:28:36 11/13/19 25 11/12/2024 IRON PANEL -TOTA L AND TIBC iron 92 ug/dL 59-158 normal Not Available [facility] [address] [place] [address], [address], 11/12/2024 17:28:37 11/13/19 25 11/12/2024 IRON PANEL -TOTA L AND TIBC total iron binding cap. 326 ug/dL _(byron c) 250-45 0 normal Not Available [facility] [address] [place] [address], [address], 11/12/2024 17:28:37 11/13/19 25 11/12/2024 IRON PANEL -TOTA L AND TIBC unsat.iron binding cap. 234 ug/dL 112-34 7 normal Not Available [facility] [address] [place] [address], [address], 11/12/2024 17:28:37 11/13/19 25 11/12/2024 IRON PANEL -TOTA L AND TIBC % saturation 28 %_(ca lc) 20-50 normal Not Available [facility] [address] [place] [address], [address], 11/12/2024 17:28:37 11/13/19 25 11/12/2024 COMP. METAB OLIC PANEL glucose 147 mg/dL 74-100 high Not Available [facility] [address] [place] [address], [address], 11/12/2024 17:28:38 11/13/19 25 11/12/2024 COMP. METAB OLIC PANEL blood urea nitrogen 27 mg/dL 6-20 high Not Available [facility] [address] [place] [address], [address], 11/12/2024 17:28:38 11/13/19 25 11/12/2024 COMP. METAB OLIC PANEL creatinine 1.19 mg/dL 0.70-1 .20 normal Not Available [facility] [address] [place] [address], [address], 11/12/2024 17:28:38 11/13/19 25 11/12/2024 COMP. METAB OLIC PANEL BUN/creatini ne ratio 23 (calc ) 10-20 high Not Available [facility] [address] [place] [address], [address], 11/12/2024 17:28:38 11/13/19 25 11/12/2024 COMP. METAB OLIC PANEL sodium 138 mmol/ L 136-14 5 normal Not Available [facility] [address] [place] [address], [address], 11/12/2024 17:28:38 11/13/19 25 11/12/2024 COMP. METAB OLIC PANEL potassium 5.0 mmol/ L 3.4-5. 0 normal Not Available [facility] [address] [place] [address], [address], 11/12/2024 17:28:38 11/13/19 25 11/12/2024 COMP. METAB OLIC PANEL chloride 102 mmol/ L 98-107 normal Not Available [facility] [address] [place] [address], [address], 11/12/2024 17:28:38 11/13/19 25 11/12/2024 COMP. METAB OLIC PANEL carbon dioxide 23 mmol/ L 22-31 normal Not Available [facility] [address] [place] [address], [address], 11/12/2024 17:28:38 11/13/19 25 11/12/2024 COMP. METAB OLIC PANEL anion gap 13 (calc ) 7-25 normal Not Available [facility] [address] [place] [address], [address], 11/12/2024 17:28:38 11/13/19 25 11/12/2024 COMP. METAB OLIC PANEL calcium 9.6 mg/dL 8.6-10 .2 normal Not Available [facility] [address] [place] [address], [address], 11/12/2024 17:28:38 11/13/19 25 11/12/2024 COMP. METAB OLIC PANEL total protein 7.6 g/dL 6.4-8. 3 normal Not Available [facility] [address] [place] [address], [address], 11/12/2024 17:28:38 11/13/19 25 11/12/2024 COMP. METAB OLIC PANEL albumin 4.7 g/dL 3.5-5. 2 normal Not Available [facility] [address] [place] [address], [address], 11/12/2024 17:28:38 11/13/19 25 11/12/2024 COMP. METAB OLIC PANEL globulin 2.9 1.5-4. 5 normal Not Available [facility] [address] [place] [address], [address], 11/12/2024 17:28:38 11/13/19 25 11/12/2024 COMP. METAB OLIC PANEL albumin/glob ulin ratio 1.6 (calc ) 1.1-2. 5 normal Not Available [facility] [address] [place] [address], [address], 11/12/2024 17:28:38 11/13/19 25 11/12/2024 COMP. METAB OLIC PANEL bilirubin, total 1.0 mg/dL 0.1-1. 2 normal Not Available [facility] [address] [place] [address], [address], 11/12/2024 17:28:38 11/13/19 25 11/12/2024 COMP. METAB OLIC PANEL alkaline phosphatase 107 U/L 40-129 normal Not Available [facility] [address] [place] [address], [address], 11/12/2024 17:28:38 11/13/19 25 11/12/2024 COMP. METAB OLIC PANEL AST 32 U/L 0-40 normal Not Available [facility] [address] [place] [address], [address], 11/12/2024 17:28:38 11/13/19 25 11/12/2024 COMP. METAB OLIC PANEL ALT 51 U/L 0-41 high Not Available [facility] [address] [place], [address], 11/12/2024 17:28:38 11/13/19 25 11/12/2024 COMP. METAB OLIC PANEL eGFR 62 >= 60 normal NOT E New calcu latio n for GFR (CKD- EPI 2020) is formu lated witho ut race adjus tment facto rs at the recom menda tion of the [facility] ation and [facility] ty of Nephr ology . This calcu latio n has not been valid ated in pregn ant women . For pedia tric patie nts refer to https ://ric mcnamara.o rg/pr vega ventura s/BIJALO QI/gf r_cal culat orPed Not Available [facility] [address] [place], [address], 11/12/2024 17:28:38 11/13/19 25 11/12/2024 OLI TIN ferritin 242 NG/mL 30-400 normal Not Available [facility] [address] [place], [address], 11/12/2024 17:28:39 11/13/19 25 11/12/2024 URIC ACID uric acid 2.5 mg/dL 3.4-7. 0 low Refer ence range s are based on popul ation norms and do not neces ani terry late with treat ment targe ts. In patie nts with an estab lishe d diagn osis of gout under going Urate Lower ing Thera py (ULT) , the 2011 [facility] of Rheum atolo gy Adina mendieta s for Manag ement of Gout recom mend a targe t uric acid level of < 6 mg/dL in all patie nts, or lower in certa in circu mstan oscar. Arthr itis Care and Resea [facility] Vol 64 No 10, 2011 [facility] of Rheum atolo gy ----- ----- ----- ----- ----- ----- ----- ----- ----- ----- ----- ---- Not Available [facility] [address] [place] [address], [address], 11/12/2024 17:28:41 11/13/19 25 11/12/2024 RF SCREE N, QUANT . rf screen, quant. 246.0 [IU]/ mL 0.0-13 .9 high Test excee ds linea rity. Resul t based on speci men dilut ion. Not Available [facility] [address] [place] [address], [address], 11/12/2024 17:28:42 11/13/19 25 11/13/2024 SS-A/ SS-B (SJOG SANDRINE'S ) ss-A Ab <1.0 NEG ai <1.0 neg normal Not Available [facility] [address] [place] [address], [address], 11/13/2024 14:08:08 11/13/19 25 11/13/2024 SS-A/ SS-B (SJOG SANDRINE'S ) ss-B Ab <1.0 NEG ai <1.0 neg normal Not Available [facility] [address] [place] [address], [address], 11/13/2024 14:08:08 11/13/19 25 11/15/2024 C4 C4 6 mg/dL 15-53 low Not Available [facility] [address] [place] [address], [address], 11/15/2024 15:54:57 11/13/19 25 11/15/2024 C3 C3 126 mg/dL 82-185 normal Not Available [facility] [address] [place] [address], [address], 11/15/2024 15:54:59 11/13/19 25 11/15/2024 CHRISTINE SCREE N, IFA CHRISTINE screen NEGATI VE negati ve normal CHRISTINE IFA is a first line scree n for detec ting the prese nce of up to appro ximat elizabeth 150 autoa ntibo dies in vario us autoi mmune disea ses. A negat tyrone CHRISTINE IFA resul t sugge sts an CHRISTINE-a ssoci ated autoi mmune disea se is not prese nt at this time, but is not defin itive . If there is high clini byron suspi cion for Sjogr en's syndr ome, testi ng for anti- SS-A/ Ro antib gibson shoul d be consi dered . Anti- Dalila-1 antib gibson shoul d be consi dered for clini sarah suspe cted infla mmato ry myopa essence . AC-0: Negat tyrone Inter natio nal Conse nsus on CHRISTINE Patte rns (http s://d oi.or g/10. 1515/ [facility]- 2017- 0052) For addit ional infor ghassan nuñez e refer to http: //[facility] patricia callahan.Que stDia gnost ics.c om/fa q/FAQ 177 (This link is being provi ded for infor juli goodwin/ educa laz l purpo ses only. ) Not Available [facility] [address] [place], [address], 11/15/2024 16:25:51 11/13/19 25 11/16/2024 PROTE IN [facility] RESIS , SERUM protein, total 6.9 g/dL 6.1-8. 1 normal Not Available [facility] [address] [place], [address], 11/18/2024 10:09:38 11/13/19 25 11/18/2024 PROTE IN [facility] RESIS , SERUM albumin 4.3 g/dL 3.8-4. 8 normal Not Available [facility] [address] [place], [address], 11/18/2024 10:09:38 11/13/19 25 11/18/2024 PROTE IN ELECT [facility] RESIS , SERUM rmesq-1-gunp ulin 0.3 g/dL 0.2-0. 3 normal Not Available [facility] [address] [place], [address], 11/18/2024 10:09:38 11/13/19 25 11/18/2024 PROTE IN ELECT [facility] RESIS , SERUM jtwws-4-hvoq ulin 0.9 g/dL 0.5-0. 9 normal Not Available [facility] [address] [place] [address], [address], 11/18/2024 10:09:38 11/13/19 25 11/18/2024 PROTE IN ELECT [facility] RESIS , SERUM beta 1 globulin 0.5 g/dL 0.4-0. 6 normal Not Available [facility] [address] [place] [address], [address], 11/18/2024 10:09:38 11/13/19 25 11/18/2024 [facility] , [facility]UM beta 2 globulin 0.3 g/dL 0.2-0. 5 normal Not Available [facility] [address] [place] [address], [address], 11/18/2024 10:09:38 11/13/19 25 11/18/2024 [facility] , SERUM gamma globulin 0.7 g/dL 0.8-1. 7 low Not Available [facility] [address] [place], [address], 11/18/2024 10:09:38 11/13/19 25 11/18/2024 PROTE IN ELECT [facility] RESIS , SERUM interpretati on SEE NOTE normal Hypog ammag lobul inemi a may be seen in early or evolv ing lymph oprol ifera tive disor ders, acqui red or conge nital immun e defic ienci es, immun osupp ressi ve thera py and light chain disea se. Consi rebekah urine prote in elect ropho resis , urine immun ofixa tion and/o r free light chain s if clini sarah indic ated. Not Available [facility] [address] [place], [address], 11/18/2024 10:09:38 11/13/19 25 11/16/2024 ANTI- CCP anti-ccp <16 units normal Refer ence Range Negat tyrone: <20 Weak Posit tyrone: 20-39 Moder ate Posit tyrone: 40-59 Stron g Posit tyrone: >59 Not Available [facility] [address] [place], [address], 11/16/2024 16:41:43 11/13/19 25 11/12/2024 XR, shoul rebekah, 2 or more view [address] [address] [phone] Patiarturo t Name: CHACHA STEVENS GTON Patiarturo t : [birth year] Patien t 78 Orderi ng Provid er: SHAQ MIN EXAM DATE: 2024 EXAM: XR RT SHOULD ER COMPLE TE RADIOG RAPHIC VIEWS: 3 COMPAR RAUL: None. HISTOR Y: Right should er pain. FINDIN GS: The bones of the should er are normal in alignm ent. There is no eviden ce of fractu re. There is severe degene rative change s at the glenoh umeral joint. There are mild degene rative change s at the acromi oclavi cular joint and along the greate r tubero sity of the humeru s. The acromi oclavi cular and coraco clavic ular spacin g is normal . The visual ized right ribs and right lung appear s normal . IMPRES CHRISTINA: 1. There are severe degene rative change s in the right glenoh umeral joint. Interp reted By: Kendra bryson MD Electr onical ly Signed By: Kendra bryson MD on 025 3:39 PM [email or web address] [facility] Radiology [facility] [address] [place] [address], [address], 11/22/2024 10:57:37 11/13/19 25 11/12/2024 XR, wrist + hand [address] [address] [phone] Alyx t Name: CHACHA Wisdom t : [birth year] Patiarturo t 78 Orderi ng Provid er: SHAQ CARRILLO EXAM DATE: 2024 EXAM: XR RT HAND AND WRIST COMPLE TE HISTOR Y: Right hand and wrist pain COMPAR RAUL: None. FINDIN GS: There are mild diffus e degene rative change s in the interp halang eal joints . There are mild to modera te degene rative change s in the third metaca rpopha langea l joint and mild degene rative change s in the first and second metaca rpopha langea l joints . There are mild degene rative change s in the first carpom etacar pal joint, trisca phe joint and radioc arpal joint. No fractu re is identi fied. IMPRES CHRISTINA: 1. There are mild to modera te degene rative change s in the right hand and wrist. Interp reted By: Kendra bryson MD Electr onical ly Signed By: Kendra bryson MD on 025 3:40 PM [email or web address] [facility] [address], [phone], 11/22/2024 10:57:37 Result Notes Documentation Provider Name and Address Organization Details Recorded Time Xr, Shoulder, 2 Or More View : [address] [address] Patient Name: CHACHA KUMARI Patient : 1945 Patient Ordering Provider: SHAQ CARRILLO EXAM DATE: 11/12/2024 EXAM: XR RT SHOULDER COMPLETE RADIOGRAPHIC VIEWS: 3 COMPARISON: None. HISTORY: Right shoulder pain. FINDINGS: The bones of the shoulder are normal in alignment. There is no evidence of fracture. There is severe degenerative changes at the glenohumeral joint. There are mild degenerative changes at the acromioclavicular joint and along the greater tuberosity of the humerus. The acromioclavicular and coracoclavicular spacing is normal. The visualized right ribs and right lung appears normal. IMPRESSION: 1. There are severe degenerative changes in the right glenohumeral joint. Interpreted By: Miles Alexandre [facility] 11/22/2024 10:57:37 Xr, Wrist + Hand : [address] [address] Patient Name: CHACHA KUMARI Patient : 1945 Patient Ordering Provider: SHAQ CARRILLO EXAM DATE: 11/12/2024 EXAM: XR RT HAND AND WRIST COMPLETE HISTORY: Right hand and wrist pain COMPARISON: None. FINDINGS: There are mild diffuse degenerative changes in the interphalangeal joints. There are mild to moderate degenerative changes in the third metacarpophalangeal joint and mild degenerative changes in the first and second metacarpophalangeal joints. There are mild degenerative changes in the first carpometacarpal joint, triscaphe joint and radiocarpal joint. No fracture is identified. IMPRESSION: 1. There are mild to moderate degenerative changes in the right hand and wrist. Interpreted By: Miles Alexandre MD [facility] 11/22/2024 10:57:37 Procedures Surgical History Date Name Laterality Status Provider Name and Address Organization Details Recorded Time total shoulder replacement completed Tania Wilkes [facility] 11/12/2024 14:13:58 Imaging Results None recorded. Procedure Notes None recorded. Medical Equipment None Reported. Allergies Allergen ID Allergen Name Allergen Category Reaction Reaction Severity Criticality Documentation Date Start Date Code Code System Note Provider Name and Address Organization Details Recorded Time 483385 cephalexi n medicatio n Not available Not available Not available 11/12/2024 2231 RxNorm Taniamaranda Wilkes [facility] 14:08:36 Medications Name Sig Start Date Stop Date Status Note LastModified by Organization Details LastModified Time losartan 50 mg tablet Take 1 tablet every day by oral route. active Not Available Not Available No t Available Plaquenil 200 mg tablet Take 1 tablet twice a day by oral route. 2024 active Not Available Not Available Not Avai lable omeprazole 40 mg capsule,dominic yed release Take 1 capsule every day by oral route. active Not Available Not Available No t Available folic acid 1 mg tablet Take 1 tablet every day by oral route. active Not Available Not Available No t Available Slo-Niacin 500 mg tablet,exten ded release Take 1 tablet every day by oral route. active Not Available Not Available No t Available etodolac 400 mg tablet Take 1 tablet twice a day by oral route. active Not Available Not Available No t Available Valtrex 500 mg tablet Take 1 tablet every day by oral route. active Not Available Not Available No t Available pravastatin 20 mg tablet Take 1 tablet every day by oral route. active Not Available Not Available No t Available duloxetine 60 mg capsule,dominic yed release Take 1 capsule every day by oral route. active Not Available Not Available No t Available calcium active with vitamin d 3 Not Available Not Available Not Available methotrexate 2.5 mg tablet Take by oral route. active Not Available Not Available No t Available Vitals Date Recorded Body weight Body mass index (BMI) Body height Systolic And Diastolic Provider Name and Address Organization Details Last Updated DateTime 11/12/2024 03296.22 g 25.2 kg/m2 180.34 cm 112/70 mm[Hg] [facility] 11/12/2024 14:22:35 Social History Question Answer Notes LastModified by Organizat ion Details LastModified Time Tobacco Smoking Status Former Smoker Tania Wilkes [facility] 11/12/2024 14:12:55 What Was The Date Of Your Most Recent Tobacco Screening? 11/12/2024 [email or web address] Information not available 11/12/2024 Sex: Unknown Functional Status None recorded. Mental Status None recorded. Family History Nothing Reported. Medical History Condition Response Emphysema N COPD N Arthritis Y Acid Reflux (GERD) N Rheumatoid Arthritis Y Bleeding Disorder N Asthma N Diabetes N Heart Disease N Hypertension Y Past Encounters Encounter ID Performer Location Encounter Start Date Encounter Closed Date Diagnosis/Indication Diagnosis SNOMED-CT Code Diagnosis ICD10 Code Diagnosis Note [id number] SHAQ CARRILLO MD [facility] [address] [place] [address] 11/12/2024 14:00:42 11/15/2024 04:07:53 History of arthritis 540479936 Z87.39 [facility] Last seen in 2018. Previously seen by Dr. Vinson, then Dr. Lorenz. Has been on methotrexa te since 2007. The last few years, he has not had followup with rheumatolo gy, and has been getting prescripti on from his primary care. Unclear exactly what his previous diagnosis was, but I presume possibly rheumatoid arthritis or pseudogout given methotrexa te use. Joints primarily involved include right shoulder, right wrist, right hand. Morning stiffness currently is about 30 minutes. Symptoms can be better with activity, but can also be worsened by activity and positionin g. We will plan to check labs, x-ray right hand, wrist shoulder. We will order physical therapy for right shoulder. Consider MRI if symptoms do not improve with PT. I have advised the patient to stop methotrexa te now given recent diagnosis of lung fibrosis, as methotrexa te itself can cause issues with lung fibrosis. 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 Currently on prednisone . Follows with pulmonolog y, Dr. Macdonald. We'll check some labs related to Sjogren's, given symptoms of dry eyes. We will also be checking serology related to rheumatoid arthritis. Discussed with patient and at length that lung fibrosis can be a rare side effect related to methotrexa te versus can be related to rheumatoid arthritis itself and other types of autoimmune conditions . Defer management of pulmonary fibrosis to pulmonolog y. 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 Last seen by previous rheumatolo gist in 2018. Methotrexa te since has been prescribed by his PCP. I have advised the patient to stop methotrexa te use immediatel y, given new onset pulmonary fibrosis. Health Concerns Section Related Observation LastModified by Organization Detai ls LastModified Time None Recorded Concern Status LastModified by Organization Details LastModified Time None Recorded Advance Directives Directive None Recorded Payers Insurance Date Sequence Insurance Name Policy Number Policy Rodriguez Covered Member ID Rodriguez Member ID Guarantor Name 11/15/2024 1 [employer] (MEDICARE REPLACEMENT/ ADVANTAGE - PPO) Chacha Kumari [id number] Chacha Reina Geoff Notes Date Note Type Note Provider Name and Address Organization Details Recorded Time 11/12/2024 text/html ROS as noted in the HPI Self-referred to establish care for arthritis. Here with , who is also seeing me today as new patient. Was recommended to establish with a new biofuels technology manager, given long-term use of Methotrexate.Has been on methotrexate since 2007 for arthritis, which is unspecified. [facility]. First seen by Dr. Vinson, then Dr. Lorenz. Was last seen in 2018. No records currently available to review. Does not know specific type of arthritis he was diagnosed with.Reports history of left shoulder replacement in 2013. Has had improvement in left shoulder pain as a result.He has chronic right shoulder pain, with associated limited range of motion. Symptoms are worse with activity. Hurts with sleeping and laying on right side. Has not seen orthopedics.Right wrist and hand is also painful. Has constant right wrist pain.Morning stiffness is about 30 minutes. Tries to run his hands and wrists under warm water in the morning. Unclear if stiffness was worse in the past before taking methotrexate.He is also taking etodolac 400 mg BID. He is not sure if this has been that helpful for arthritis either. In May 2024, he had gotten very sick, recurring hospitalization. He was seen by Pulmonology at that time. He was diagnosed with pulmonary fibrosis. He is supposed to use supplemental oxygen. Follows with pulmonology, Dr. Macdonald.States that he is on prednisone currently, but does not know the dose.Reports that the box chipper had also recommended to see rheumatology. Denies any rash, oral ulcers, alopecia, pleuritic pain or shortness of breath, photosensitivity, dry mouth, Raynaud's phenomenon. Reports dry eyes after having had cataract surgery. Follows with eye doctor in [place]. No history of psoriasis.No history of inflammatory bowel disease.No history of inflammatory eye disease.No history of recurrent infections, fevers.Denies family history of autoimmune disease or lung issues. SHAQ CARRILLO MD [address] [place] [address], [phone], [facility] 11/14/2024 12:31:27
--- OUTSIDE RECORDS SUMMARY | 2024-12-23 13:02 | XMS_ITS | Continuity of Care Document ---
Author Organization [facility], RHEUMATOLOGY SB Address [address] [place] [phone] Assessment No assessment recorded. Plan of Treatment Reminders Order Date Submit Date Provider Last Modified By Organization Details Last Modified Time Details Appointments RHEUM RECHECK 2024 11:15A Navya CARRILLO MD Not available Not available Not available Lab CHRISTINE (antinucl ear antibodie s) titer + pattern, ifa, serum 2024 025 [facility], [address] [place] [address], [phone], 11/15/2024 16:25:51 sjogren antibody panel, serum 2024 025 [facility], [address] [place] [address], [address], 11/13/2024 14:08:08 C3 (compleme nt), serum or plasma 2024 025 [facility], [address] [place] [address], [address], 11/15/2024 15:54:59 C4 (compleme nt), serum or plasma 2024 025 [facility], [address] [place] [address], [address], 11/15/2024 15:54:57 protein electroph oresis panel, serum or plasma 2024 025 [facility], [address] [place] [address], [address], 11/16/2024 10:25:37 rf (rheumato id factor), serum 2024 025 [facility], [address] [place] [address], [address], 11/12/2024 17:28:42 ccp (cyclic citrullin ated peptide) iga+igg, serum 2024 025 [facility], [address] [place] [address], [address], 11/16/2024 16:41:44 hepatitis (A+B+C) panel, serum 2024 025 [facility], [address] [place] [address], [address], 11/12/2024 17:19:15 uric acid, serum or plasma [address] [place] [address] Laboratory, [address] [place] [address], [address], 11/12/2024 17:28:41 magnesium , QN, serum or plasma 2024 025 [facility], [address] [place] [address], [address], 11/12/2024 17:28:36 iron + total iron-bind ing capacity (TIBC), serum 2024 025 [facility], [address] [place] [address], [address], 11/12/2024 17:28:37 ferritin, serum or plasma [address] [place] [address] Laboratory, [address] [place] [address], [address], 11/12/2024 17:28:39 PTH (parathyr oid hormone), intact + calcium, serum or plasma 2024 025 [facility], [address] [place] [address], [address], 11/12/2024 17:19:18 CBC w/ auto diff 2024 025 [facility], [address] [place] [address], [address], 11/12/2024 16:01:36 CMP, serum or plasma 2024 025 [facility], [address] [place] [address], [address], 11/12/2024 17:28:38 Referral physical therapist referral 2024 025 [email or web address] [facility], [address], [place], [address], 11/26/2024 08:07:40 Procedures None recorded. Surgeries None recorded. Imaging XR, shoulder, 2 or more view - Eval for inflammat ory arthritis , chondroca lcinosis 2024 025 [facility], [address] [place] [address], [address], 11/12/2024 15:44:57 XR, wrist + hand - Eval for inflammat ory arthritis - chondroca lcinosis, rheumatoi d arthritis 2024 025 [facility], [address] [place] [address], [address], 11/12/2024 15:45:57 Medication Orders None recorded. Patient TargetsNo targets recorded. Patient Instructions Encounter Date Encounter Id Patient Instructions Last Modified By Organization Details Last Modified Time 11/12/2024 [id number] medical record request* - Hx pulmonary fibrosis. Please fax last 2 office notes. Thank you [email or web address] Not available 11/22/2024 08:05:56 Follow up 6-8 weeks after initiation of PT A total of 65 minutes was spent on this patient encounter. Time spent includes some or all of the following, both klgb-xb-udsh time and non nxdz-gj-bbfs time, but is not limited to: Preparing to see the patient and reviewing records Discussion or coordination of car with other health healthcare marketer Reviewing records or discussing history of plan [...] 10*3/ uL 3.8-10 .8 high Not Available [facility] [address] [place] [address], [address], 11/12/2024 16:01:36 11/13/19 25 11/12/2024 COMPL ETE BLOOD COUNT red blood cells 5.02 10*6/ uL 4.20-5 .80 normal Not Available [facility] [address] [place] [address], [address], 11/12/2024 16:01:36 11/13/19 25 11/12/2024 COMPL ETE BLOOD COUNT hemoglobin 16.7 g/dL 14.0-1 8.0 normal Not Available [facility] [address] [place] [address], [address], 11/12/2024 16:01:36 11/13/19 25 11/12/2024 COMPL ETE BLOOD COUNT hematocrit 49.4 % 40.0-5 2.0 normal Not Available [facility] [address] [place] [address], [address], 11/12/2024 16:01:36 11/13/19 25 11/12/2024 COMPL ETE BLOOD COUNT MCV 99 fL 80-100 normal Not Available [facility] [address] [place] [address], [address], 11/12/2024 16:01:36 11/13/19 25 11/12/2024 COMPL ETE BLOOD COUNT MCH 33 pg 26-35 normal Not Available [facility] [address] [place] [address], [address], 11/12/2024 16:01:36 11/13/19 25 11/12/2024 COMPL ETE BLOOD COUNT MCHC 34 g/dL 32-36 normal Not Available [facility] [address] [place] [address], [address], 11/12/2024 16:01:36 11/13/19 25 11/12/2024 COMPL ETE BLOOD COUNT RDW 18.7 % 11.0-1 5.0 high Not Available [facility] [address] [place] [address], [address], 11/12/2024 16:01:36 11/13/19 25 11/12/2024 COMPL ETE BLOOD COUNT MPV 8.1 fL 6.2-10 .5 normal Not Available [facility] [address] [place] [address], [address], 11/12/2024 16:01:36 11/13/19 25 11/12/2024 COMPL ETE BLOOD COUNT platelet count 313 10*3/ uL 150-40 0 normal Not Available [facility] [address] [place] [address], [address], 11/12/2024 16:01:36 11/13/19 25 11/12/2024 COMPL ETE BLOOD COUNT neutrophil,a bsolute 15.1 10*3/ uL 1.6-8. 4 high Not Available [facility] [address] [place] [address], [address], 11/12/2024 16:01:36 11/13/19 25 11/12/2024 COMPL ETE BLOOD COUNT lymphocyte,a bsolute 1.2 10*3/ uL 0.4-5. 1 normal Not Available [facility] [address] [place] [address], [address], 11/12/2024 16:01:36 11/13/19 25 11/12/2024 COMPL ETE BLOOD COUNT monocyte,abs olute 0.2 10*3/ uL 0.0-1. 2 normal Not Available [facility] [address] [place] [address], [address], 11/12/2024 16:01:36 11/13/19 25 11/12/2024 COMPL ETE BLOOD COUNT eosinophil,a bsolute 0.0 10*3/ uL 0.0-0. 8 normal Not Available [facility] [address] [place] [address], [address], 11/12/2024 16:01:36 11/13/19 25 11/12/2024 COMPL ETE BLOOD COUNT basophil,abs olute 0.0 10*3/ uL 0.0-0. 3 normal Not Available [facility] [address] [place] [address], [address], 11/12/2024 16:01:36 11/13/19 25 11/12/2024 COMPL ETE BLOOD COUNT % neutrophils 91.4 % 42.0-7 8.0 high Not Available [facility] [address] [place] [address], [address], 11/12/2024 16:01:36 11/13/19 25 11/12/2024 COMPL ETE BLOOD COUNT % lymphocytes 7.0 % 11.0-4 7.0 low Not Available [facility] [address] [place] [address], [address], 11/12/2024 16:01:36 11/13/19 25 11/12/2024 COMPL ETE BLOOD COUNT % monocytes 1.0 % 0.0-11 .0 normal Not Available [facility] [address] [place] [address], [address], 11/12/2024 16:01:36 11/13/19 25 11/12/2024 COMPL ETE BLOOD COUNT % eosinophils 0.3 % 0.0-7. 0 normal Not Available [facility] [address] [place] [address], [address], 11/12/2024 16:01:36 11/13/19 25 11/12/2024 COMPL ETE BLOOD COUNT % basophils 0.3 % 0.0-3. 0 normal Not Available [facility] [address] [place] [address], [address], 11/12/2024 16:01:36 11/13/19 25 11/12/2024 COMPL ETE BLOOD COUNT nucleated red cells 0.0 % 0.0-0. 9 normal Not Available [facility] [address] [place] [address], [address], 11/12/2024 16:01:36 11/13/19 25 11/12/2024 COMPL ETE BLOOD COUNT nucleated RBCs, absolute 0.00 10*3/ uL not estab. normal Not Available [facility] [address] [place] [address], [address], 11/12/2024 16:01:36 11/13/19 25 11/12/2024 HEPAT ITIS PANEL hepatitis A Ab, IgM NONREA CTIVE nonrea ctive normal Not Available [facility] [address] [place] [address], [address], 11/12/2024 17:19:15 11/13/19 25 11/12/2024 HEPAT ITIS PANEL hepatitis B surface Ag NONREA CTIVE nonrea ctive normal Not Available [facility] [address] [place] [address], [address], 11/12/2024 17:19:15 11/13/19 25 11/12/2024 HEPAT ITIS PANEL hepatitis B core Ab,IgM NONREA CTIVE nonrea ctive normal Not Available [facility] [address] [place], [address], 11/12/2024 17:19:15 11/13/1911/12/2024 HEPAT ITIS PANEL hcab, reflex viral RNA qt NONREA CTIVE nonrea ctive normal Antib odies to HCV were not detec norm; does not exclu de the possi bilit y of expos ure to HCV. Not Available [facility] [address] [place], [address], 11/12/2024 17:19:15 11/13/1911/12/2024 PTH, INTAC T WITH CA PTH, intact [...] ===== ===== ===== ===== ==== Not Available [facility] [address] [place] [address], [address], 11/12/2024 17:35:44 11/13/19 25 11/12/2024 PTH, INTAC T WITH CA calcium 9.8 mg/dL 8.6-10 .2 normal Not Available [facility] [address] [place] [address], [address], 11/12/2024 17:35:44 11/13/19 25 11/12/2024 MAGNE SIUM magnesium 2.5 mg/dL 1.6-2. 6 normal Not Available [facility] [address] [place] [address], [address], 11/12/2024 17:28:36 11/13/19 25 11/12/2024 IRON PANEL -TOTA L AND TIBC iron 92 ug/dL 59-158 normal Not Available [facility] [address] [place] [address], [address], 11/12/2024 17:28:37 11/13/19 25 11/12/2024 IRON PANEL -TOTA L AND TIBC total iron binding cap. 326 ug/dL _(byron c) 250-45 0 normal Not Available [facility] [address] [place] [address], [address], 11/12/2024 17:28:37 11/13/19 25 11/12/2024 IRON PANEL -TOTA L AND TIBC unsat.iron binding cap. 234 ug/dL 112-34 7 normal Not Available [facility] [address] [place] [address], [address], 11/12/2024 17:28:37 11/13/19 25 11/12/2024 IRON PANEL -TOTA L AND TIBC % saturation 28 %_(ca lc) 20-50 normal Not Available [facility] [address] [place] [address], [address], 11/12/2024 17:28:37 11/13/19 25 11/12/2024 COMP. METAB OLIC PANEL glucose 147 mg/dL 74-100 high Not Available [facility] [address] [place] [address], [address], 11/12/2024 17:28:38 11/13/19 25 11/12/2024 COMP. METAB OLIC PANEL blood urea nitrogen 27 mg/dL 6-20 high Not Available [facility] [address] [place] [address], [address], 11/12/2024 17:28:38 11/13/19 25 11/12/2024 COMP. METAB OLIC PANEL creatinine 1.19 mg/dL 0.70-1 .20 normal Not Available [facility] [address] [place] [address], [address], 11/12/2024 17:28:38 11/13/19 25 11/12/2024 COMP. METAB OLIC PANEL BUN/creatini ne ratio 23 (calc ) 10-20 high Not Available [facility] [address] [place] [address], [address], 11/12/2024 17:28:38 11/13/19 25 11/12/2024 COMP. METAB OLIC PANEL sodium 138 mmol/ L 136-14 5 normal Not Available [facility] [address] [place] [address], [address], 11/12/2024 17:28:38 11/13/19 25 11/12/2024 COMP. METAB OLIC PANEL potassium 5.0 mmol/ L 3.4-5. 0 normal Not Available [facility] [address] [place] [address], [address], 11/12/2024 17:28:38 11/13/19 25 11/12/2024 COMP. METAB OLIC PANEL chloride 102 mmol/ L 98-107 normal Not Available [facility] [address] [place] [address], [address], 11/12/2024 17:28:38 11/13/19 25 11/12/2024 COMP. METAB OLIC PANEL carbon dioxide 23 mmol/ L 22-31 normal Not Available [facility] [address] [place] [address], [address], 11/12/2024 17:28:38 11/13/19 25 11/12/2024 COMP. METAB OLIC PANEL anion gap 13 (calc ) 7-25 normal Not Available [facility] [address] [place] [address], [address], 11/12/2024 17:28:38 11/13/19 25 11/12/2024 COMP. METAB OLIC PANEL calcium 9.6 mg/dL 8.6-10 .2 normal Not Available [facility] [address] [place] [address], [address], 11/12/2024 17:28:38 11/13/19 25 11/12/2024 COMP. METAB OLIC PANEL total protein 7.6 g/dL 6.4-8. 3 normal Not Available [facility] [address] [place] [address], [address], 11/12/2024 17:28:38 11/13/19 25 11/12/2024 COMP. METAB OLIC PANEL albumin 4.7 g/dL 3.5-5. 2 normal Not Available [facility] [address] [place] [address], [address], 11/12/2024 17:28:38 11/13/19 25 11/12/2024 COMP. METAB OLIC PANEL globulin 2.9 1.5-4. 5 normal Not Available [facility] [address] [place] [address], [address], 11/12/2024 17:28:38 11/13/19 25 11/12/2024 COMP. METAB OLIC PANEL albumin/glob ulin ratio 1.6 (calc ) 1.1-2. 5 normal Not Available [facility] [address] [place] [address], [address], 11/12/2024 17:28:38 11/13/19 25 11/12/2024 COMP. METAB OLIC PANEL bilirubin, total 1.0 mg/dL 0.1-1. 2 normal Not Available [facility] [address] [place] [address], [address], 11/12/2024 17:28:38 11/13/19 25 11/12/2024 COMP. METAB OLIC PANEL alkaline phosphatase 107 U/L 40-129 normal Not Available [facility] [address] [place] [address], [address], 11/12/2024 17:28:38 11/13/19 25 11/12/2024 COMP. METAB OLIC PANEL AST 32 U/L 0-40 normal Not Available [facility] [address] [place] [address], [address], 11/12/2024 17:28:38 11/13/19 25 11/12/2024 COMP. METAB OLIC PANEL ALT 51 U/L 0-41 high Not Available [facility] [address] [place], [address], 11/12/2024 17:28:38 11/13/19 25 11/12/2024 COMP. METAB OLIC PANEL eGFR 62 >= 60 normal NOT E New calcu latio n for GFR (CKD- EPI 2020) is formu lated witho ut race adjus tment facto rs at the recom menda tion of the Jayme Chou atjenn and Heraclio Pricee ty of Nephr ology . This calcu latio n has not been valid ated in pregn ant women . For pedia tric patie nts refer to https ://ric mcnamara.preeti salcedo/nicko ventura s/LOPEZ RODRIGUEZ/gf r_cal culat orPed Not Available [facility] [address] [place], [address], 11/12/2024 17:28:38 11/13/19 25 11/12/2024 OLI TIN ferritin 242 NG/mL 30-400 normal Not Available [facility] [address] [place], [address], 11/12/2024 17:28:39 11/13/19 25 11/12/2024 URIC ACID [...] mstan oscar. Arthr itis Care and Resea [facility] Vol 64 No 10, 2011 Heraclio simmons Colle ge of Rheum atolo gy ----- ----- ----- ----- ----- ----- ----- ----- ----- ----- ----- ---- Not Available [facility] [address] [place] [address], [address], 11/12/2024 17:28:41 11/13/19 25 11/12/2024 RF SCREE N, QUANT . rf screen, quant. 246.0 [IU]/ mL 0.0-13 .9 high Test excee ds linea rity. Resul t based on speci men dilut ion. Not Available [facility] [address] [place] [address], [address], 11/12/2024 17:28:42 11/13/19 25 11/13/2024 SS-A/ SS-B (SJOG SANDRINE'S ) ss-A Ab <1.0 NEG ai <1.0 neg normal Not Available [facility] [address] [place] [address], [address], 11/13/2024 14:08:08 11/13/19 25 11/13/2024 SS-A/ SS-B (SJOG SANDRINE'S ) ss-B Ab <1.0 NEG ai <1.0 neg normal Not Available [facility] [address] [place] [address], [address], 11/13/2024 14:08:08 11/13/19 25 11/15/2024 C4 C4 6 mg/dL 15-53 low Not Available [facility] [address] [place] [address], [address], 11/15/2024 15:54:57 11/13/19 25 11/15/2024 C3 C3 126 mg/dL 82-185 normal Not Available [facility] [address] [place] [address], [address], 11/15/2024 15:54:59 11/13/19 25 11/15/2024 CHRISTINE SCREE [...] Patte rns (http s://d oi.or g/10. 1515/ [facility]- 2017- 0052) For addit ional infor ghassan nuñez refer to http: //[facility] patricia callahan.Que stDia gnost ics.c om/fa q/FAQ 177 (This link is being provi ded for infor matio nal/ educa laz l purpo ses only. ) Not Available [facility] [address] [place], [address], 11/15/2024 16:25:51 11/13/19 25 11/16/2024 PROTE IN ELECT ROPHO RESIS , SERUM protein, total 6.9 g/dL 6.1-8. 1 normal Not Available [facility] [address] [place], [address], 11/18/2024 10:09:38 11/13/19 25 11/18/2024 PROTE IN ELECT ROPHO RESIS , SERUM albumin 4.3 g/dL 3.8-4. 8 normal Not Available [facility] [address] [place], [address], 11/18/2024 10:09:38 11/13/19 25 11/18/2024 PROTE IN ELECT ROPHO RESIS , SERUM byyat-5-yrum ulin 0.3 g/dL 0.2-0. 3 normal Not Available [facility] [address] [place] [address], [address], 11/18/2024 10:09:38 11/13/19 25 11/18/2024 PROTE IN ELECT [facility] RESIS , SERUM bjayx-8-zsmg ulin 0.9 g/dL 0.5-0. 9 normal Not Available [facility] [address] [place] [address], [address], 11/18/2024 10:09:38 11/13/19 25 11/18/2024 PROTE IN [facility] RESIS , SERUM beta 1 globulin 0.5 g/dL 0.4-0. 6 normal Not Available [facility] [address] [place] [address], [address], 11/18/2024 10:09:38 11/13/19 25 11/18/2024 PROTE IN [facility] RESIS , SERUM beta 2 globulin 0.3 g/dL 0.2-0. 5 normal Not Available [facility] [address] [place], [address], 11/18/2024 10:09:38 11/13/19 25 11/18/2024 PROTE IN [facility] RESIS , SERUM gamma globulin 0.7 g/dL 0.8-1. 7 low Not Available [facility] [address] [place], [address], 11/18/2024 10:09:38 11/13/19 25 11/18/2024 PROTE IN [facility] RESIS , SERUM interpretati on SEE NOTE normal Hypog ammag lobul inemi a may be seen in early or evolv ing lymph oprol ifera tive disor ders, acqui red or conge nital immun e defic ienci es, immun osupp ressi ve thera py and light chain disea se. Consi rebekah urine prote in elect [facility] resis , urine immun ofixa tion and/o r free light chain s if clini sarah indic ated. Not Available [facility] [address] [place] [address], [address], 11/18/2024 10:09:38 11/13/19 25 11/16/2024 ANTI- CCP anti-ccp <16 units normal Refer ence Range Negat tyrone: <20 Weak Posit tyrone: 20-39 Moder ate Posit tyrone: 40-59 Stron g Posit tyrone: >59 Not Available [facility] [address] [place] [address], [address], 11/16/2024 16:41:43 11/13/19 25 11/12/2024 XR, shoul rebekah, 2 or more view [address] [address] [phone] Patiarturo t Name: CHACHA STEVENS GTON Patiarturo [...] bryson MD on 025 3:39 PM [email or web address] [facility] [address] [place] [address], [address], 11/22/2024 10:57:37 11/13/19 25 11/12/2024 XR, wrist + hand [address] [address] [phone] Patiarturo t Name: CHACHA Wisdom t : [birth year] Patiarturo t 78 Orderi ng Provid er: SHAQ MIN EXAM DATE: 2024 EXAM: XR RT HAND AND WRIST COMPLE TE HISTOR Y: Right hand and wrist pain COMPAR RUAL: None. FINDIN GS: There are mild diffus [...] Kendra bryson MD on 025 3:40 PM [email or web address] [facility] [address], [address], 11/22/2024 10:57:37 Result Notes Documentation Provider Name and Address Organization Details Recorded Time Xr, Shoulder, 2 Or More View : [address] [address] Patient Name: CHACHA KUMARI Patient : 1945 [...] joint. Interpreted By: Miles Alexandre MD Leidy Reed [facility] 11/22/2024 10:57:37 Xr, Wrist + Hand : [address] [address] Patient Name: CHACHA KUMARI Patient : 1945 [...] wrist. Interpreted By: Miles Alexandre MD Leidy Reed [facility] 11/22/2024 10:57:37 Procedures Surgical History Date Name Laterality Status Provider Name and Address Organization Details Recorded Time total shoulder replacement completed Taniamaranda Wilkes [facility] 11/12/2024 14:13:58 Imaging Results None recorded. Procedure Notes None recorded. Medical Equipment None Reported. Allergies Allergen ID Allergen Name Allergen Category Reaction Reaction Severity Criticality Documentation Date Start Date Code Code System Note Provider Name and Address Organization Details Recorded Time 797395 cephalexi n medicatio n Not available Not available Not available 11/12/2024 2231 RxNorm Tania Wilkes [facility] 14:08:36 Medications Name Sig Start Date [...] Address Organization Details Last Updated DateTime 11/12/2024 78542.22 g 25.2 kg/m2 180.34 cm 112/70 mm[Hg] Tania Wilkes [facility] 11/12/2024 14:22:35 Social History Question Answer Notes LastModified by Organizat ion Details LastModified Time Tobacco Smoking Status Former Smoker Tania Wilkes [facility] 11/12/2024 14:12:55 What Was The Date Of Your Most Recent Tobacco Screening? 11/12/2024 [email or web address] Information not available 11/12/2024 Sex: Unknown Functional Status None recorded. Mental Status None recorded. Family History Nothing Reported. Medical History Condition Response Diabetes N Bleeding Disorder N Arthritis Y Emphysema N Acid Reflux (GERD) N Heart Disease N Rheumatoid Arthritis Y Hypertension Y COPD N Asthma N Past Encounters Encounter ID Performer Location Encounter Start Date Encounter Closed Date Diagnosis/Indication Diagnosis SNOMED-CT Code Diagnosis ICD10 Code Diagnosis Note [id number] SHAQ LOGAN CARRILLO MD [facility] [address] [place] [address] 11/12/2024 14:00:42 11/15/2024 04:07:53 History of arthritis 505238035 Z87.39 Previously seen at the former Arthritis [...] like Plaquenil, Sulfasalaz ine Fibrosis of lung 4104323 1 J84.10 New diagnosis in May 2024, [...] 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 Last seen by previous rheumatolo rust in 2018. Methotrexa te since has been prescribed by his PCP. I have advised the patient to stop methotrexa te use immediatel y, given new onset pulmonary fibrosis. Health Concerns Section Related Observation LastModified by Organization Detai ls LastModified Time None Recorded Concern Status LastModified by Organization Details LastModified Time None Recorded Payers Encounter Date Sequence Insurance Name Policy Number Policy Rodriguez Covered Member ID Rodriguez Member ID Guarantor Name 11/12/2024 1 [employer] (MEDICARE REPLACEMENT/ ADVANTAGE - PPO) Chacha Kumari [id number] Chacha Kumari Notes Date Note Type Note Provider Name and Address Organization Details Recorded Time 11/12/2024 text/html ROS as noted in the HPI Self-referred to establish care for arthritis. Here with , who is also seeing me today as new patient. Was recommended to establish with a new steam train driver, given long-term use of Methotrexate.Has been on [...] does not know the dose.Reports that the client service executive had also recommended to see rheumatology. Denies any rash, oral ulcers, alopecia, pleuritic pain or shortness of breath, photosensitivity, dry mouth, Raynaud's phenomenon. Reports dry eyes after having had cataract surgery. Follows with eye doctor in [place]. No history of psoriasis.No history of inflammatory bowel disease.No history of inflammatory eye disease.No history of recurrent infections, fevers.Denies family history of autoimmune disease or lung issues. SHAQ CARRILLO MD [address] [place], [address], [facility] 11/14/2024 12:31:27
[2024-12-23] MEDS: ALBUTEROL 0.083% 2.5 MG/3 ML NEB IH (13:38)
== END 2024-12-23 23:59 | disposition home or self-care (01) ==
LOC: RT 13:00
PROVIDERS: PCP Family Medicine; Visit Provider Internal Medicine Pulmonary Disease
DX: J44.9 Chronic obstructive pulmonary disease, unspecified (principal); J84.10 Pulmonary fibrosis, unspecified; R94.2 Abnormal results of pulmonary function studies
CPT/HCPCS: 94010; 94618

== ENCOUNTER 2025-01-27 15:00 | Outpatient (RCR) | payer MEDICARE, SELFPAY | END 2025-01-27 23:59 | disposition home or self-care (01) | LOC: OT 15:00 | PROVIDERS: PCP Family Medicine; Visit Provider Internal Medicine Geriatric Medicine | DX: M25.511 Pain in right shoulder (principal); G89.29 Other chronic pain | CPT/HCPCS: 97014; 97032; 97035; 97110; 97140; 97166; 97530; G0283 ==

== ENCOUNTER 2025-02-15 14:00 | Outpatient (RCR) | payer MEDICARE, SELFPAY | END 2025-02-15 23:59 | disposition home or self-care (01) | LOC: OT 14:00 | PROVIDERS: PCP Family Medicine; Visit Provider Internal Medicine Geriatric Medicine | DX: G89.29 Other chronic pain (principal); M25.511 Pain in right shoulder | CPT/HCPCS: 97014; 97110; 97140; 97168; G0283 ==

== ENCOUNTER 2025-05-19 12:41 | Outpatient (CLI) | payer MEDICARE, SELFPAY ==
--- OUTSIDE RECORDS SUMMARY | 2024-05-17 05:30 | XMS_ITS ---
[facility] Address [address] [place] [phone] Care Team Providers Care Commercial Decorator Name Role Phone Osman Minor Unavailable [phone] Allergies Allergen (clinical drug ingredient) Drug/Non Drug Allergy documented on EMR Reaction Allergy Type Onset Date Status cephalexin Cephalexin hives Drug Allergy Activ e lisinopril Lisinopril cough Drug Allergy Activ e Results Component Value Reference Range Notes CXR Reviewed date:05/18/2024 08:37:30 AM Interpretation:Improved pneumonia and/or edema Performing Lab: Notes/Report: Improved pneumonia and/or edema REASON FOR VISIT f/u [facility] D/[facility] Medications Medication SIG (Take, Route, Frequency, Duration) Notes Start Date End Date Status Slo-Niacin 500 MG 1 tab(s) orally once a day (at bedtime); Duration: 30 day(s) Active Calcium + Vitamin D3 600-5 MG-MCG 1 tab(s) orally 3 times a day; Duration: 30 day(s) Active Valtrex 500 MG 1 tablet Orally bid Active Meclizine HCl 12.5 MG 1 tablet as needed Orally every 8 hrs as needed 04/30/2023 Active DULoxetine HCl 60 mg 1 capsule Orally on ce daily; Duration: 90 days Active Oxygen Conserving Device - as directed - as directed 05/12/2024 Active Methotrexate Sodium 2.5 mg TAKE SIX TABL ETS BY MOUTH EVERY FRIDAY -3 TABLETS IN THE MORNING AND 3 TABLETS IN THE EVENING -; Duration: 90 Active Omeprazole 40 MG 1 capsule 30 minutes before morning meal Orally Two times a day; Duration: 30 days Active Folic Acid 1 mg TAKE ONE TABLET BY M OUTH EVERY DAY; Duration: 30 Active Losartan Potassium 50 MG 1 tablet Orally Once a day; Duration: 90 days Active Pravastatin Sodium 20 mg 1 tablet Orally Once a day; Duration: 90 days Active Etodolac 400 MG 1 tab(s) orally 2 ti mes a day; Duration: 90 days Active Vital Signs Blood pressure systolic 118 mm Hg 05/17/20 24 Blood pressure diastolic 74 mm Hg 024 Heart Rate 111 /min 05/17/2024 Height 71 in 05/17/2024 Weight 000 lbs 05/17/2024 Encounters Encounter Location Date Provider Diagnosis [facility] [address] [place] [phone] 05/17/2024 Osman Minor Community acquired pneumonia, unspecified laterality J18.9 and Respiratory failure with hypoxia, unspecified chronicity J96.91 Assessments Encounter Date Diagnosis (ICD Code) Assessment Notes Treatment Notes Treatment Clinical Notes Section Notes 05/17/2024 Community acquired pneumonia, unspecified laterality (ICD-10 - J18.9) 05/17/2024 Respiratory failure with hypoxia, unspecified chronicity (ICD-10 - J96.91) Plan Of Treatment Medication Medication Name Sig Start Date Stop Date Notes DULoxetine HCl 60 mg 1 capsule Orally on ce daily; Duration: 90 days Next Appt Details Follow Up: 3 Weeks, Reason: Progress Notes * CHACHA KUMARIDOB: [birth year] (79 yo M)Acc No.[id number]:05/17/2024 Patient: CHACHA VERA Provider: Jessica Minor M.D. :1945 A ge:78 Y S ex:Male Date:05/17/2024 Address:[address] [place] [address], [id number] Subjective: * Chief Complaints: * 1 . f/u [facility] D/C. * HPI: H PI: 78 year old male presents with c/o Here for follow up on: 07/06-03/2024 [facility] hospitalization, see pt docs. Pt admitted for double pneumonia. Pt is doing a little better everyday . Pt is slowly getting appetite back and is able to walk further each day as well. * ROS: D ERMATOLOGY: no R emely. n o H kuldeep. G ASTROENTEROLOGY: no N ausea. n o V omiting. U ROLOGY: no D ifficulty urinating. n o B lood in urine. * Medical History: A rthritis, Nose Basal Cell Cancer, Hyperlipidemia, Esophageal Reflux, Depression, Hearing Loss, Bilateral Cataract, Hypertension. * Surgical History: N ose Basal Cell Cancer Removal 10/05/2019, LT Shoulder Replacement 12/20/2013, Bilateral cataract removal 2021. * Hospitalization/Major Diagno stic Procedure: D enies Past Hospitalization. * Family History: F ather: diagnosed with Cancer. S iblings: diagnosed with Cancer. 1 brother(s) , 1 sister(s) . 1 son(s) , 2 daughter(s) . . * Social History: C URRENT TOBACCO USE: No . C affeine: yes, frequency:. Alcohol: no. * Medications: T aking Valtrex 500 MG Tablet 1 tablet Orally bid , Taking Slo-Niacin 500 MG Tablet Extended Release 1 tab(s) orally once a day (at bedtime) , Taking Calcium + Vitamin D3 600-5 MG-MCG Tablet 1 tab(s) orally 3 times a day , Taking Meclizine HCl 12.5 MG Tablet 1 tablet as needed Orally every 8 hrs as needed , Taking Pravastatin Sodium 20 mg Tablet 1 tablet Orally Once a day , Taking Etodolac 400 MG Tablet 1 tab(s) orally 2 times a day , Taking Folic Acid 1 mg Tablet TAKE ONE TABLET BY MOUTH EVERY DAY , Taking Losartan Potassium 50 MG Tablet 1 tablet Orally Once a day , Taking Omeprazole 40 MG Capsule Delayed Release 1 capsule 30 minutes before morning meal Orally Two times a day , Taking Methotrexate Sodium 2.5 mg Tablet TAKE SIX TABLETS BY MOUTH EVERY FRIDAY -3 TABLETS IN THE MORNING AND 3 TABLETS IN THE EVENING - , Taking DULoxetine HCl 60 mg Capsule Delayed Release Particles TAKE ONE CAPSULE BY MOUTH EVERY DAY , Taking Oxygen Conserving Device - - as directed - as directed , Discontinued Promethazine-DM 6.25-15 MG/5ML Syrup 5 mL as needed Orally every 6 hrs , Medication List reviewed and reconciled with the patient * Allergies: C ephalexin: hives - Allergy, Lisinopril: cough - Side Effects. Objective: * Vitals: W t:000, Temp:97.9, BP:118/74, HR:111, O2 Sat:92% on 3L O2, Nurse:juaquin, Ht: 71. * Examination: G eneral Examination: General Appearance: N AD, sitting in a wheelchair, supplemental oxygen in use. H eart: R SR. L ungs: good air entry bilaterally, bibasilar crackles. Assessment: * Assessment: 1. C ommunity acquired pneumonia, unspecified laterality - J18.9 (Primary) 2 .?Respiratory failure with hypoxia, unspecified chronicity - J96.91 Plan: * Treatment: 2.?Others? Refill DULoxetine HCl Capsule Delayed Release Particles, 60 mg, 1 capsule, Orally, once daily, 90 days, 90, Refills 1.?? * Procedure Codes: G 2211 Complex e/[place], [address] P[place]SE [place]X * Follow Up: 3 Weeks * Images: Billing Information: * Visit Code: 10287 Office Visit, Est Pt., Level 3. * Procedure Codes: G2211 Complex e/[place]. [address] PULSE OX. * Electronic signature of Carmen Minor MD on 05/19/2025 at 12:50 PM EST Sign off status: Pending * Provider: Jessica Minor M.D. Date: 07/18/2023 Generated for Laura keen/Tommy/Dianeitting on: 07/20/2024 12:50 PM EST History and Physical Notes * HPI (History of Present Illness) Category Sub-Category Detail Notes Category Not es HPI Here for follow up on: 05/05-2023 [facility] hospitalization, see pt docs. Pt admitted for double pneumonia. Pt is doing a little better everyday . Pt is slowly getting appetite back and is able to walk further each day as well Examination Category Sub-Category Detail Notes Category Not es General Examination Heart: RSR Lungs: good air entry bilat erally, bibasilar crackles General Appearance: NAD, sitting in a wh eelchair, supplemental oxygen in use
--- OUTSIDE RECORDS SUMMARY | 2024-06-10 04:45 | XMS_ITS ---
Author Organization [facility] Address [address] [facility] [address] [place] [phone] Care Team Providers Care Director Law Enforcement Name Role Phone Iván Osman Unavailable [phone] Allergies Allergen (clinical drug ingredient) Drug/Non Drug Allergy documented on EMR Reaction Allergy Type Onset Date Status cephalexin Cephalexin hives Drug Allergy Activ e lisinopril Lisinopril cough Drug Allergy Activ e REASON FOR VISIT 3 week f/u Encounters Encounter Location Date Provider Diagnosis [facility] [address] [facility] [address] [place] [phone] 06/10/2024 Osman Minor Plan Of Treatment No Information Progress Notes * CHACHA KUMARIDOB: [birth year] (79 yo M)Acc No.[id number]:06/10/2024 Patient: CHACHA VERA Provider: Jessica Minor M.D. :1945 A ge:78 Y S ex:Male Date:06/10/2024 Address:[address] [place] [address], [id number] Subjective: * Chief Complaints: * 1 . 3 week f/u. * ROS: D ERMATOLOGY: no R emely. [...] C affeine: yes, frequency:. Alcohol: no. * Allergies: C ephalexin: hives - Allergy, Lisinopril: cough - Side Effects. Objective: * Vitals: Assessment: Plan: * Treatment: * Images: Billing Information: * Visit Code: * Procedure Codes: * Electronic signature of Carmen Minor MD on 05/19/2025 at 12:51 PM EST Sign off status: Pending * Provider: Jessica Minor M.D. Date: 0 06/10/2024 Generated for Laura keen/Tommy/Dianeitting on: 07/20/2024 12:51 PM EST
--- OUTSIDE RECORDS SUMMARY | 2024-11-30 04:45 | XMS_ITS ---
Author Organization [facility] Address [address] [place] [id number] Care Team Providers Care Contour Grinder Name Role Phone Osman Minor Unavailable [phone] Allergies Allergen (clinical drug ingredient) Drug/Non Drug Allergy documented on EMR Reaction Allergy Type Onset Date Status cephalexin Cephalexin hives Drug Allergy Activ e lisinopril Lisinopril cough Drug Allergy Activ e Results Component Value Reference Range Notes CBC Venipuncture (in house) Reviewed date:12/01/2024 04:38:15 PM Interpretation:Normal Performing Lab: Notes/Report: Normal wbc 10.9 3.5 - 10 lymph 19.4% 15 - 50 mid 4.7% 2 - 15 gran 4.7% 35 - 80 rbc 5.27 3.5 - 5.5 hgb 17.6 11.5 - 16.5 hct 53.0 35 - 55 mcv 100.5 75 - 100 mch 33.3 25 - 35 mchc 33.2 31 - 38 platlet 229 100 - 400 P-Comprehensive Metabolic Pa naeem (CMP) Reviewed date:12/01/2024 04:38:15 PM Interpretation:Normal Performing Lab: Notes/Report: CLIA: [id number] Moi Mario MD, Wash House Worker [facility] , [address], [place] [address] Test performed by [facility], [facility] Sodium 140 135-145 mmol/L Potassium 4.6 3.5-5.3 mmol/L Chloride 102 97-108 mmol/L CO2 26 20-32 mmol/L Glucose 97 65-99 mg/dL BUN 19 8-23 mg/dL Creatinine 1.02 0.70-1.30 mg/dL Calcium 9.3 8.6-10.4 mg/dL eGFR by Creatinine 75 >59 mL/min/1.73m2 Protein 6.7 6.0-8.3 g/dL Albumin 4.3 3.5-5.3 g/dL Alkaline Phosphatase 113 40-129 IU/L ALT (SGPT) 29 <5-55 IU/L AST (SGOT) 26 <5-46 IU/L Bilirubin, Total 0.8 <0.2-1.2 mg/dL A/G Ratio 1.8 1.1-2.5 P-T4 Free (thyroxine) Reviewed date:12/01/2024 04:38:15 PM Interpretation:Normal Performing Lab: Notes/Report: Test performed by [facility] [address] [place] [address] [address], [place] [address] Moi Mairo MD, Wash House Worker CLIA: [id number] Thyroxine Free (free T4) 1.15 0.86-1.76 ng/dL P-Lipid Panel Reviewed date:12/01/2024 04:38:15 PM Interpretation:trigs 223, non-hdl 155 Performing Lab: Notes/Report: Test performed by [facility] [address] [place] [address] Dr[facility], [place] [address] Moi Mario MD, Wash House Worker CLIA: [id number] Cholesterol 198 <200 mg/dL Triglycerides 223 <150 mg/dL HDL Cholesterol 43 >39 mg/dL Cholesterol / HDL Ratio 4.60 0.00-4.99 Ratio Non-HDL Cholesterol 155 <130 mg/dL LDL Cholesterol (Calculation) 110 <130 mg/dL LDL Cholesterol Levels* Less than 100 mg/dL Optimal 100 to 129 mg/dL Near Optimal/ Above Optimal 130 to 159 mg/dL Borderline High 160 to 189 mg/dL High 190 mg/dL and above Very High * Categories as recommended by the 2004 ATPIII guidelines LDL/HDL Ratio 2.6 <3.3 Ratio LDL Cholesterol Patient History Test Date: 10/22/2022 LDL Results: 84 Units: mg/dL % Change: - Test Date: 10/29/2023 LDL Results: 90 Units: mg/dL % Change: +7% Test Date: 11/30/2024 LDL Results: 110 Units: mg/dL % Change: +22% P-TSH reflex to FT4 Reviewed date:12/01/2024 04:38:15 PM Interpretation:6.12 Performing Lab: Notes/Report: Test performed by [facility] [address] [place] [address] , [address], [place] [address] Moi Mario MD, Wash House Worker CLIA: [id number] TSH reflex to FT4 6.12 0.43-5.25 mU/L P-Microalbumin/Creatinine, R andom Urine Sample Reviewed date:12/01/2024 04:38:15 PM Interpretation:Normal Performing Lab: Notes/Report: Test performed by [facility] [address] [place] [address] , [address], [place] [address] Moi Mario MD, Wash House Worker CLIA: [id number] Albumin/Creatinine Ratio, Urine 5 0-30 ug/m g Microalbumin, Urine, Random 0.3 Creatinine, Urine 58.0 REASON FOR VISIT checkup and fasting labs Medications Medication SIG (Take, Route, Frequency, Duration) Notes Start Date End Date Status Pravastatin Sodium 20 mg 1 tablet Orally Once a day Active Losartan Potassium 50 mg TAKE ONE TABLET BY MOUTH EVERY DAY Active Omeprazole 40 mg TAKE ONE CAPSULE BY MOUTH TWICE DAILY take first DOSE 30 minutes BEFORE morning meal Active Valtrex 500 MG 1 tablet Orally bid Active Oxygen Conserving Device - as directed - as directed 05/12/2024 Active Meclizine HCl 12.5 MG 1 tablet as needed Orally every 8 hrs as needed 04/30/2023 Active Etodolac 400 mg TAKE ONE TABLET BY M OUTH TWICE DAILY - TAKE WITH FOOD-; Duration: 30 days Active DULoxetine HCl 60 mg 1 capsule Orally on ce daily; Duration: 30 days Active Calcium + Vitamin D3 600-5 MG-MCG 1 tab(s) orally 3 times a day; Duration: 30 day(s) Active Slo-Niacin 500 MG 1 tab(s) orally once a day (at bedtime); Duration: 30 day(s) Active Vital Signs Blood pressure systolic 122 mm Hg 12/01/19 25 Blood pressure diastolic 70 mm Hg 025 Heart Rate 79 /min 11/30/2024 Height 71 in 11/30/2024 Weight 177.6 lbs 11/30/2024 BMI 24.77 kg/m2 11/30/2024 Encounters Encounter Location Date Provider Diagnosis [facility] [address] [place], [place] [id number] 11/30/2024 Osman Paola Primary hypertension I10 ; Pure hypercholesterolemia E78.00 ; Gastroesophageal reflux disease, unspecified whether esophagitis present K21.9 ; ocean transportation intermediary use of drug Z79.899 ; Rheumatoid arthritis, involving unspecified site, unspecified whether rheumatoid factor present M06.9 ; Pulmonary fibrosis J84.10 ; Hyperlipidemia, unspecified hyperlipidemia type E78.5 and BMI 24.0-24.9, adult Z68.24 Assessments Encounter Date Diagnosis (ICD Code) Assessment Notes Treatment Notes Treatment Clinical Notes Section Notes 11/30/2024 Primary hypertension (ICD-10 - I10) 11/30/2024 Pure hypercholesterolemia (ICD-10 - E78.00) 11/30/2024 Gastroesophageal ref lux disease, unspecified whether esophagitis present (ICD-10 - K21.9) 11/30/2024 ocean transportation intermediary use of svetlana g (ICD-10 - Z79.899) 11/30/2024 Rheumatoid arthritis , involving unspecified site, unspecified whether rheumatoid factor present (ICD-10 - M06.9) 11/30/2024 Pulmonary fibrosis (ICD-10 - J84.10) 11/30/2024 Hyperlipidemia, unspecified hyperlipidemia type (ICD-10 - E78.5) 11/30/2024 BMI 24.0-24.9, adult (ICD-10 - Z68.24) Plan Of Treatment Medication Medication Name Sig Start Date Stop Date Notes Pravastatin Sodium 20 mg 1 tablet Orally Once a day Losartan Potassium 50 mg TAKE ONE TABLET BY MOUTH EVERY DAY Omeprazole 40 mg TAKE ONE CAPSULE BY MOUTH TWICE DAILY take first DOSE 30 minutes BEFORE morning meal Next Appt Details Follow Up: 6 Months, Reason: Progress Notes * CHACHA KUMARIDOB: [birth year] (79 yo M)Acc No.[id number]:11/30/2024 Progress Notes Patient: CHACHA VERA Provider: Jessica Minor M.D. :1945 A ge:78 Y S ex:Male Date:11/30/2024 Address:[address] [place] [address], [id number] Subjective: * Chief Complaints: * 1 . Checkup and fasting labs. * HPI: C ardiology: 78 year old male presents with c/o Blood Pressure Elevated P t here to f/u on hypertension. Pt states he is doing well and does not have any concerns. c/o Hyperlipidemia P t is fasting today. * ROS: D ERMATOLOGY: no R emely. [...] URRENT TOBACCO USE: No . C affeine: yes. Alcohol: no. * Medications: T aking Valtrex [...] every 8 hrs as needed , Taking Oxygen Conserving Device - - as directed - as directed , Taking Pravastatin Sodium 20 mg Tablet 1 tablet Orally Once a day , Taking Losartan Potassium 50 mg Tablet TAKE ONE TABLET BY MOUTH EVERY DAY , Taking Etodolac 400 mg Tablet TAKE ONE TABLET BY MOUTH TWICE DAILY - TAKE WITH FOOD- , Taking Omeprazole 40 mg Capsule Delayed Release TAKE ONE CAPSULE BY MOUTH TWICE DAILY take first DOSE 30 minutes BEFORE morning meal , Taking DULoxetine HCl 60 mg Capsule Delayed Release Particles 1 capsule Orally once daily , Discontinued Methotrexate Sodium 2.5 mg Tablet TAKE SIX TABLETS BY MOUTH EVERY FRIDAY -3 TABLETS IN THE MORNING AND 3 TABLETS IN THE EVENING - , Discontinued Folic Acid 1 mg Tablet take 1 tablet orally once a day , Medication List reviewed and reconciled with the patient * Allergies: C ephalexin: hives - Allergy, Lisinopril: cough - Side Effects. Objective: * Vitals: W t: 177.6, Temp: 97.9, BP: 122/70, HR: 79, Nurse: juaquin, Ht: 71, BMI:24.77. * Examination: G eneral Examination: General Appearance: N AD. H eart: R SR. L ungs:?good air entry bilaterally, bilateral crackles. S kin: n ormal, no rash. P eripheral pulses: n ormal (2+) bilaterally. E xtremities: n o leg edema. Assessment: * Assessment: 1. P rimary hypertension - I10 (Primary) 2 . P ure hypercholesterolemia - E78.00 3 . G astroesophageal reflux disease, unspecified whether esophagitis present - K21.9 4 . L mary term use of drug - Z79.899 5 . R heumatoid arthritis, involving unspecified site, unspecified whether rheumatoid factor present - M06.9? 6. P ulmonary fibrosis - J84.10 7 . H yperlipidemia, unspecified hyperlipidemia type - E78.5 8 . B IN 24.0-24.9, adult - Z68.24 ? Plan: * Treatment: Value Reference Range A /G Ratio 1.8 1.1-2.5 - * A lbumin 4.3 3.5-5.3 - g/dL * A lkaline Phosphatase 113 40-129 - IU/L * A LT (SGPT) 29 <5-55 - IU/L * A ST (SGOT) 26 <5-46 - IU/L * B ilirubin, Total 0.8 <0.2-1.2 - mg/dL * B UN 19 8-23 - mg/dL * C alcium 9.3 8.6-10.4 - mg/dL * C hloride 102 97-108 - mmol/L * C O2 26 20-32 - mmol/L * C reatinine 1.02 0.70-1.30 - mg/dL * G lucose 97 65-99 - mg/dL * P otassium 4.6 3.5-5.3 - mmol/L * S odium 140 135-145 - mmol/L * P rotein 6.7 6.0-8.3 - g/dL * e GFR by Creatinine 75 >59 - mL/min/1.73m2 * Laury Martinez 12/01/2024 04:38 :04 PM EDT > See phone encounter ?LAB: P-Microalbumin/Creatinine, Random Urine Sample (Collection Date & Time - 11/30/2024 09:14 AM)?Normal* Value Reference Range A lbumin/Creatinine Ratio, Urine 5 0-30 - ug /mg * C reatinine, Urine 58.0 - mg/dL * M icroalbumin, Urine, Random 0.3 - mg/dL * Laury Martinez 12/01/2024 04:38 :04 PM EDT > See phone encounter 2.?Pure hypercholesterolemia? Continue Pravastatin Sodium Tablet, 20 mg, 1 tablet, Orally, Once a day.?LAB: P-Comprehensive Metabolic Panel (CMP) (Collection Date & Time - 11/30/2024 09:14 AM)?Normal* Value Reference Range A /G Ratio 1.8 1.1-2.5 - * A lbumin 4.3 3.5-5.3 - g/dL * A lkaline Phosphatase 113 40-129 - IU/L * A LT (SGPT) 29 <5-55 - IU/L * A ST (SGOT) 26 <5-46 - IU/L * B ilirubin, Total 0.8 <0.2-1.2 - mg/dL * B UN 19 8-23 - mg/dL * C alcium 9.3 8.6-10.4 - mg/dL * C hloride 102 97-108 - mmol/L * C O2 26 20-32 - mmol/L * C reatinine 1.02 0.70-1.30 - mg/dL * G lucose 97 65-99 - mg/dL * P otassium 4.6 3.5-5.3 - mmol/L * S odium 140 135-145 - mmol/L * P rotein 6.7 6.0-8.3 - g/dL * e GFR by Creatinine 75 >59 - mL/min/1.73m2 * Laury Martinez 12/01/2024 04:38 :04 PM EDT > See phone encounter ?LAB: P-Lipid Panel (Collection Date & Time - 11/30/2024 09:14 AM)?trigs 223, non-hdl 155* Value Reference Range C holesterol / HDL Ratio 4.60 0.00-4.99 - Ratio * C holesterol 198 <200 - mg/dL * H DL Cholesterol 43 >39 - mg/dL * L DL Cholesterol (Calculation) 110 <130 - mg/d L * L DL/HDL Ratio 2.6 <3.3 - Ratio * N on-HDL Cholesterol 155 H <130 - mg/dL * T riglycerides 223 H <150 - mg/dL * Laury Martinez 12/01/2024 04:38 :04 PM EDT > See phone encounter ?LAB: P-TSH reflex to FT4 (Collection Date & Time - 11/30/2024 09:14 AM)? 6.12* Value Reference Range T SH reflex to FT4 6.12 H 0.43-5.25 - mU/L * Laury Martinez 12/01/2024 04:38 :04 PM EDT > See phone encounter 3.?Gastroesophageal reflux disease, unspecified whether esophagitis present? Continue Omeprazole Capsule Delayed Release, 40 mg, TAKE ONE CAPSULE BY MOUTH TWICE DAILY take first DOSE 30 minutes BEFORE morning meal.??4.?ocean transportation intermediary use of drug?LAB: CBC Venipuncture (in house) (Collection Date & Time - 11/30/2024)? Normal* Value Reference Range w bc 10.9 3.5 - 10 * l ymph 19.4% 15 - 50 * m id 4.7% 2 - 15 * g ran 4.7% 35 - 80 * r bc 5.27 3.5 - 5.5 * h gb 17.6 11.5 - 16.5 * h ct 53.0 35 - 55 * m cv 100.5 75 - 100 * m ch 33.3 25 - 35 * m chc 33.2 31 - 38 * p latlet 229 100 - 400 * Reyna Cheung 11/30/2024 11:04:4 2 AM EDT > Laury Martinez 12/01/2024 04:38:04 PM EDT > See phone encounter * Labs: * L ab: P-T4 Free (thyroxine) (Collection Date & Time - 11/30/2024 09:14 AM) N ormal Value Reference Range T hyroxine Free (free T4) 1.15 0.86-1.76 - ng/d L * [facility], support 12/01/2024 04:05:08 : This order was created by the Interface. Laury Martinez 12/01/2024 04:38:04 PM EDT > See phone encounter * Procedure Codes: G 2211 Complex e/[place], [address] CBC WITH AUTO DIFF, 1036F TOBACCO NON-USER, G8420 BMI<30 AND >=22 CALC & DOCU, G8950 PREHTN/HTN BP DOC INDCD F/U DOC, G8752 MOST RECENT SYSTOLIC BP < 140MM HG, G8754 MOST RECENT DIASTOLIC BP < 90MM HG * Follow Up: 6 Months * Images: Billing Information: * Visit Code: 10356 Office Visit, Est Pt., Level 4. * Procedure Codes: G2211 Complex e/[place]. [address] CBC WITH AUTO DIFF. 1036F TOBACCO NON-USER. G8420 BMI<30 AND >=22 CALC & DOCU. G8950 PREHTN/HTN BP DOC INDCD F/U DOC. G8752 MOST RECENT SYSTOLIC BP < 140MM HG. G8754 MOST RECENT DIASTOLIC BP < 90MM HG. * Electronic signature of Carmen Minor MD on 05/19/2025 at 12:50 PM EST Sign off status: Pending * Provider: Jessica Minor M.D. Date: 0 11/30/2024 Generated for Laura keen/Tommy/Tatianna on: 1 07/20/2024 12:50 PM EST History and Physical Notes * HPI (History of Present Illness) Category Sub-Category Detail Notes Category Not es Cardiology Blood Pressure Elevated Pt here to f/u on hypertension. Pt states he is doing well and does not have any concerns Hyperlipidemia Pt is fasting today Examination Category Sub-Category Detail Notes Category Not es General Examination Heart: RSR Lungs: good air entry bilat erally, bilateral crackles Extremities: no leg edema General Appearance: NAD Skin: normal, no rash Peripheral pulses: normal (2+) bilatera lly
--- OUTSIDE RECORDS SUMMARY | 2025-05-19 12:50 | XMS_ITS | Patient Health Record ---
[facility] Address [address] [facility] [address] [place] [id number] Care Team Providers Care Preparole Counseling Aide Name Role Phone Osman Minor Unavailable [phone] Allergies Allergen (clinical drug ingredient) Drug/Non Drug [...] Interpretation:Normal Performing Lab: Notes/Report: Test performed by [facility] [address] [place] [address] , [address], [place] [address] Moi Mario MD, Director Of Midwifery/Staff Midwife CLIA: [id number] Sodium 140 135-145 mmol/L Potassium 4.6 3.5-5.3 [...] Interpretation:Normal Performing Lab: Notes/Report: Test performed by [facility] [address] [place] [address] [place] [address] Moi Mario MD, Director Of Midwifery/Staff Midwife CLIA: [id number] Thyroxine Free (free T4) 1.15 0.86-1.76 ng/dL P-Lipid Panel Reviewed date:12/01/2024 04:38:15 PM Interpretation:trigs 223, non-hdl 155 Performing Lab: Notes/Report: Test performed by [facility] [address] [place] [address] [place] [address] Moi Mario MD, Director Of Midwifery/Staff Midwife CLIA: [id number] Cholesterol 198 <200 mg/dL Triglycerides 223 <150 [...] Interpretation:6.12 Performing Lab: Notes/Report: Test performed by [facility] [address] , [address], [place] [address] Moi Mario MD, Director Of Midwifery/Staff Midwife CLIA: [id number] TSH reflex to FT4 6.12 0.43-5.25 mU/L P-Microalbumin/Creatinine, R andom Urine Sample Reviewed date:12/01/2024 04:38:15 PM Interpretation:Normal Performing Lab: Notes/Report: Test performed by [facility] [address] [facility] , [address], [place] [address] Moi Mario MD, Director Of Midwifery/Staff Midwife CLIA: [id number] Albumin/Creatinine Ratio, Urine 5 0-30 ug/m g Microalbumin, Urine, Random 0.3 Creatinine, Urine 58.0 Reason For Referral No Information Medications Medication SIG (Take, Route, Frequency, Duration) Notes Start Date End Date Status Oxygen Conserving Device - as directed - as directed 05/12/2024 Active Calcium + Vitamin D3 600-5 MG-MCG 1 tab(s) orally 3 times a day; Duration: 30 day(s) Active Meclizine HCl 12.5 MG 1 tablet as needed Orally every 8 hrs as needed 04/30/2023 Active Pravastatin Sodium 20 mg 1 tablet Orally Once a day; Duration: 90 days Active Losartan Potassium 50 mg 1 tablet by chica daily; Duration: 90 days Active Etodolac 400 mg 1 tablet orally twic e a day; Duration: 90 days Active DULoxetine HCl 60 mg 1 capsule Orally on ce a day; Duration: 90 days Active Valtrex 500 MG 1 tablet Orally bid Active Slo-Niacin 500 MG 1 tab(s) orally once a day (at bedtime); Duration: 30 day(s) Active Omeprazole 40 mg 1 capsule orally twi ce a day; Duration: 90 days Active Immunizations Vaccine Route Administration Date Status Comme nts COVID 19 Moderna Unknown 07/05/2020 Administered COVID 19 Moderna Unknown 08/02/2020 Administered COVID 19 Moderna Unknown 08/02/2020 Administered COVID 19 Moderna Unknown 05/24/2021 Administered Fluzone High Dose (65yr and older) Unknown 03/26/2020 Administered Fluzone High Dose (65yr and older) IM Intramuscular 02/26/2022 Administered Fluzone High Dose (65yr and older) Unknown 04/03/2023 Administered Fluzone PF Quad (6-35 months) Unknown 04/07/2017 Administered Prevnar (PCV20) IM Intramuscular 04/30/2023 Administered Problems Problem Type SNOMED Code ICD Code Onset Dates Problem Status W/U Status Risk Notes Problem Essential hypertension (01670423) Essential (primary) hypertension (I10) Active confirmed Problem Chronic pulmonary edema (21436044) Chronic pulmonary edema (J81.1) Active confirmed Problem Pulmonary fibrosis (55091323) Pulmonary fibrosis (J84.10) Active confirmed Problem Polyarthritis (394077064) Polyarthritis (M13.0) Active confirmed Problem Hyperlipidaemia (11582553) Hyperlipidemia, unspecified hyperlipidemia type (E78.5) Active confirmed Problem Pure hypercholesterolemia (746860805) Pure hypercholesterolemia (E78.00) Active confirmed Problem Cataract (599744040) Cataract of both eyes, unspecified cataract type (H26.9) Active confirmed Problem Gastroesophageal reflux disease (687441232) Gastroesophageal reflux disease, unspecified whether esophagitis present (K21.9) Active confirmed Problem Rheumatoid arthritis (66984953) Rheumatoid arthritis, involving unspecified site, unspecified whether rheumatoid factor present (M06.9) Active confirmed Problem Primary hypertension (05121686) Primary hypertension (I10) Active confirmed Problem 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) ILD (interstitial lung disease) (J84.9) Active confirmed Vital Signs Heart Rate 79 /min 11/30/2024 Blood pressure diastolic 70 mm Hg 11/30/2024 Height 71 in 11/30/2024 Blood pressure systolic 122 mm Hg 11/30/2024 Weight 177.6 lbs 11/30/2024 BMI 24.77 kg/m2 11/30/2024 Encounters Encounter Location Date Provider Diagnosis [facility] [address] [place], [place] [id number] 11/30/2024 Osman Clayton Primary hypertension I10 ; Pure hypercholesterolemia E78.00 ; Gastroesophageal reflux disease, unspecified whether esophagitis present K21.9 ; halfway use of drug Z79.899 ; Rheumatoid arthritis, involving unspecified site, unspecified whether rheumatoid factor present M06.9 ; Pulmonary fibrosis J84.10 ; Hyperlipidemia, unspecified hyperlipidemia type E78.5 and BMI 24.0-24.9, adult Z68.24 [facility] [address] [facility] [address] [place], [place] [phone] 05/21/2024 Osman Clayton [facility] [address] [place], [place] [id number] 12/01/2024 Osman Clayton [facility] [address] [place] [phone] 03/16/2025 Osman Minor Assessments Encounter Date Diagnosis (ICD Code) Assessment Notes Treatment Notes Treatment Clinical Notes Section Notes 11/30/2024 Pure hypercholesterolemia (ICD-10 - E78.00) 11/30/2024 Primary hypertension (ICD-10 - I10) 11/30/2024 Gastroesophageal ref lux disease, unspecified whether esophagitis present (ICD-10 - K21.9) 11/30/2024 halfway use of svetlana g (ICD-10 - Z79.899) 11/30/2024 Rheumatoid arthritis , involving unspecified site, unspecified whether rheumatoid factor present (ICD-10 - M06.9) 11/30/2024 Pulmonary fibrosis (ICD-10 - J84.10) 11/30/2024 Hyperlipidemia, unspecified hyperlipidemia type (ICD-10 - E78.5) 11/30/2024 BMI 24.0-24.9, adult (ICD-10 - Z68.24) Plan Of Treatment Pending Test Test Name Order Date P-Comprehensive Metabolic Panel (CMP) P-TSH reflex to FT4 02/26/2022 Insurance Providers Payer Name Payer Address Payer Phone Subscriber Number Group Number Insured Name Patient Relationship to Insured Coverage Start Date Coverage End Date [employer] (MEDICAR E) [address] [address] [place] [address] [id number] CHACHA LAUGHLIN Self - patient is the insured Medical (General) History Medical History History ICD Code Arthritis Nose Basal Cell Cancer Hyperlipidemia Esophageal Reflux Depression Hearing Loss Bilateral Cataract Hypertension Surgical History Surgery Date(Month/Year) Nose Basal Cell Cancer Removal 0 LT Shoulder Replacement 12/20/2013 Bilateral cataract removal 2021
--- OUTSIDE RECORDS SUMMARY | 2025-05-19 12:51 | XMS_ITS | Clinical Summary ---
Author Organization [facility] yste Address [address] [place] [address] Care Team Providers Care Upper Trimmer Name Role Phone Unavailable Primary Care Provider [...] (1 - 1-dose 75+ series) 07/07/202 1 INFLUENZA VACCINE 12/31/2024 COVID-19 Vaccine ( season) 2025
--- OUTSIDE RECORDS SUMMARY | 2025-05-19 12:51 | XMS_ITS | Continuity of Care Document ---
Author Organization [facility], RHEUMATOLOGY SB Address [address] [place] [id number] Care Team Providers Care Gas Pumper Name Role Phone ANGELA WATKINS Primary Care Provider [phone] Assessment No assessment recorded. Plan of Treatment Reminders Order Date Submit Date Provider Last Modified By Organization Details Last Modified Time Details Appointments RHEUM RECHECK 2025 11:30A M SHAQ BERRY MD Not available Not available Not available Lab CBC w/ auto diff 2024 025 [facility], [address] [place] [address], [phone], 04/19/2025 13:21:07 creatinin e, serum or plasma 2024 025 [facility], [address] [place] [address], [phone], 04/19/2025 13:26:01 AST/SGOT (aspartat e aminotran sferase), serum or plasma 2024 025 [facility], [address] [place] [address], [phone], 04/19/2025 13:25:59 ALT (alanine aminotran sferase), serum or plasma 2024 025 [facility], [address] [place] [address], [phone], 04/19/2025 13:26:03 Referral None recorded. Procedures None recorded. Surgeries None recorded. Imaging None recorded. Medication Orders CellCept 500 mg tablet 2024 025 [facility], [address] [place] [address], [phone], 04/19/2025 17:27:52 Patient TargetsNo targets recorded. Patient InstructionsNo instructions recorded. Reason for Referral None Reported. Results Created Date Observation Date Name Description Value Unit Range Abnormal Flag Note LastModifiedBy Organization Detail LastModifiedTime 04/19/2004/19/2025 COMPL ETE BLOOD COUNT white blood cells 16.7 10*3/ uL 3.8-10 .8 high Not Available [facility] [address] [place] [address], [phone], 04/19/2025 13:21:07 04/19/20 25 04/19/2025 COMPL ETE BLOOD COUNT red blood cells 5.69 10*6/ uL 4.20-5 .80 normal Not Available [facility] [address] [place] [address], [phone], 04/19/2025 13:21:07 04/19/20 25 04/19/2025 COMPL ETE BLOOD COUNT hemoglobin 17.9 g/dL 14.0-1 8.0 normal Not Available [facility] [address] [place] [address], [phone], 04/19/2025 13:21:07 04/19/20 25 04/19/2025 COMPL ETE BLOOD COUNT hematocrit 53.2 % 40.0-5 2.0 high Not Available [facility] [address] [place] [address], [phone], 04/19/2025 13:21:07 04/19/20 25 04/19/2025 COMPL ETE BLOOD COUNT MCV 94 fL 80-100 normal Not Available [facility] [address] [place] [address], [phone], 04/19/2025 13:21:07 04/19/20 25 04/19/2025 COMPL ETE BLOOD COUNT MCH 32 pg 26-35 normal Not Available [facility] [address] [place] [address], [phone], 04/19/2025 13:21:07 04/19/20 25 04/19/2025 COMPL ETE BLOOD COUNT MCHC 34 g/dL 32-36 normal Not Available [facility] [address] [place] [address], [phone], 04/19/2025 13:21:07 04/19/20 25 04/19/2025 COMPL ETE BLOOD COUNT RDW 15.9 % 11.0-1 5.0 high Not Available [facility] [address] [place] [address], [phone], 04/19/2025 13:21:07 04/19/20 25 04/19/2025 COMPL ETE BLOOD COUNT MPV 7.7 fL 6.2-10 .5 normal Not Available [facility] [address] [place] [address], [phone], 04/19/2025 13:21:07 04/19/20 25 04/19/2025 COMPL ETE BLOOD COUNT platelet count 232 10*3/ uL 150-40 0 normal Not Available [facility] [address] [place] [address], [phone], 04/19/2025 13:21:07 04/19/20 25 04/19/2025 COMPL ETE BLOOD COUNT neutrophil,a bsolute 13.1 10*3/ uL 1.6-8. 4 high Not Available [facility] [address] [place] [address], [phone], 04/19/2025 13:21:07 04/19/20 25 04/19/2025 COMPL ETE BLOOD COUNT lymphocyte,a bsolute 2.0 10*3/ uL 0.4-5. 1 normal Not Available [facility] [address] [place] [address], [phone], 04/19/2025 13:21:07 04/19/20 25 04/19/2025 COMPL ETE BLOOD COUNT monocyte,abs olute 1.3 10*3/ uL 0.0-1. 2 high Not Available [facility] [address] [place] [address], [phone], 04/19/2025 13:21:07 04/19/20 25 04/19/2025 COMPL ETE BLOOD COUNT eosinophil,a bsolute 0.2 10*3/ uL 0.0-0. 8 normal Not Available [facility] [address] [place] [address], [phone], 04/19/2025 13:21:07 04/19/20 25 04/19/2025 COMPL ETE BLOOD COUNT basophil,abs olute 0.1 10*3/ uL 0.0-0. 3 normal Not Available [facility] [address] [place] [address], [phone], 04/19/2025 13:21:07 04/19/20 25 04/19/2025 COMPL ETE BLOOD COUNT % neutrophils 78.4 % 42.0-7 8.0 high Not Available [facility] [address] [place] [address], [phone], 04/19/2025 13:21:07 04/19/20 25 04/19/2025 COMPL ETE BLOOD COUNT % lymphocytes 12.2 % 11.0-4 7.0 normal Not Available [facility] [address] [place] [address], [phone], 04/19/2025 13:21:07 04/19/20 25 04/19/2025 COMPL ETE BLOOD COUNT % monocytes 7.9 % 0.0-11 .0 normal Not Available [facility] [address] [place] [address], [address], 04/19/2025 13:21:07 04/19/20 25 04/19/2025 COMPL ETE BLOOD COUNT % eosinophils 1.1 % 0.0-7. 0 normal Not Available [facility] [address] [place] [address], [phone], 04/19/2025 13:21:07 04/19/20 25 04/19/2025 COMPL ETE BLOOD COUNT % basophils 0.4 % 0.0-3. 0 normal Not Available [facility] [address] [place] [address], [phone], 04/19/2025 13:21:07 04/19/20 25 04/19/2025 COMPL ETE BLOOD COUNT nucleated red cells 0.1 % 0.0-0. 9 normal Not Available [facility] [address] [place] [address], [phone], 04/19/2025 13:21:07 04/19/20 25 04/19/2025 COMPL ETE BLOOD COUNT nucleated RBCs, absolute 0.01 10*3/ uL not estab. normal Not Available [facility] [address] [place] [address], [phone], 04/19/2025 13:21:07 04/19/20 25 04/19/2025 AST AST 22 U/L 0-40 normal Not Available [facility] [address] [place] [address], [phone], 04/19/2025 13:25:59 04/19/20 25 04/19/2025 CREAT ININE creatinine 1.15 mg/dL 0.70-1 .20 normal Not Available [facility] [address] [place] [address], [phone], 04/19/2025 13:26:01 04/19/20 25 04/19/2025 ALT ALT 22 U/L 0-41 normal Not Available [facility] [address] [place] [address], [phone], 04/19/2025 13:26:03 Result Notes None recorded. Procedures Surgical History Date Name Laterality Status Provider Name and Address Organization Details Recorded Time 5 Injection - Joint/Bursa, Major, w/o US completed SHAQ BERRY MD [address] [place] [address], [phone], [facility] 01/18/2025 18:33:32 total shoulder replacement completed Tania Wilkes [facility] 11/12/2024 14:13:58 Imaging Results None recorded. Procedure Notes None recorded. Medical Equipment None Reported. Allergies Allergen ID Allergen Name Allergen Category Reaction Reaction Severity Criticality Documentation Date Start Date Code Code System Note Provider Name and Address Organization Details Recorded Time [id number] cephalexi n medicatio n Not available Not available Not available 11/12/2024 2231 RxNorm Tania Wilkes [facility] 14:08:36 Medications Name Sig Start [...] Not Available Not Available No t Available CellCept 500 mg tablet Take 2 tablets twice a day by oral route. 2024 active Not Available Not Available Not Avai lable folic acid 1 mg tablet Take 1 [...] 3 Not Available Not Available Not Available prednisolone active Not Available Not Available Not Available methotrexate 2.5 mg tablet Take by oral route. active Not Available Not Available No t Available Vitals Date Recorded Body height Body mass index (BMI) Body weight Heart rate Oxygen saturation Systolic And Diastolic Provider Name and Address Organization Details Last Updated DateTime 5 180.34 cm 24 kg/m2 64933.3 2 g 75 /min 98 % 130/70 mm[Hg] Say Jon [facility] 5 11:24:54 Social History Question Answer Notes LastModified by Organizat ion Details LastModified Time Tobacco Smoking Status Former Smoker Tania Wilkes maranda, [facility] 11/12/2024 14:12:55 What Is Your Level Of Caffeine Consumption? Occasional Information not available 01/18/2025 What Was The Date Of Your Most Recent Tobacco Screening? 01/18/2025 Information not available 01/18/2025 Has Tobacco Cessation Counseling Been Provided? No Information not available 01/18/2025 Sex: Male Functional Status Question Answer Note LastModified by Organizat ion Details LastModified Time Do you use any illicit or recreational drugs? No Information not available 01/18/2025 What is your level of alcohol consumption? None Information not available 01/18/2025 Mental Status None recorded. Family History Nothing Reported. Medical History Condition Response Diabetes N Bleeding Disorder N Arthritis Y Emphysema N Acid Reflux (GERD) N Heart Disease N Rheumatoid Arthritis Y Hypertension Y COPD N Asthma N Immunizations Vaccine Type Date Status Note Provider Nam e and Address Organization Details Recorded Time pneumococcal, unspecified formulation 0 completed Not Available [facility] 04/19/2025 10:53:19 Pneumococcal conjugate PCV 13 5 completed Not Available [facility] 04/19/2025 10:53:19 Pneumococcal conjugate PCV 13 6 completed Not Available [facility] 04/19/2025 10:53:19 Influenza, split virus, quadrivalent, PF 7 completed Not Available [facility] 04/19/2025 10:53:19 Tdap 7 completed Not Available [facility] 04/19/2025 10:53:19 Hep A, adult 9 completed Not Available [facility] 04/19/2025 10:53:19 Influenza, high-dose, quadrivalent, PF 0 completed Not Available [facility] 04/19/2025 10:53:19 COVID-19, mRNA, LNP-S, PF, 100 mcg/0.5mL dose or 50 mcg/0.25mL dose 1 completed Not Available [facility] 04/19/2025 10:53:19 COVID-19, mRNA, LNP-S, PF, 100 mcg/0.5mL dose or 50 mcg/0.25mL dose 1 completed Not Available [facility] 04/19/2025 10:53:19 zoster recombinant 1 completed Not Available [facility] 04/19/2025 10:53:19 COVID-19, mRNA, LNP-S, PF, 100 mcg/0.5mL dose or 50 mcg/0.25mL dose 1 completed Not Available [facility] 04/19/2025 10:53:19 Influenza, high-dose, quadrivalent, PF 2 completed Not Available [facility] 04/19/2025 10:53:19 COVID-19, mRNA, LNP-S, bivalent, PF, 50 mcg/0.5 mL or 25mcg/0.25 mL dose 2 completed Not Available [facility] 04/19/2025 10:53:19 COVID-19, mRNA, LNP-S, PF, 50 mcg/0.5 mL 3 completed Not Available [facility] 04/19/2025 10:53:19 Influenza, high-dose, quadrivalent, PF 3 completed Not Available [facility] 04/19/2025 10:53:19 Pneumococcal conjugate PCV20, polysaccharide SLS141 conjugate, adjuvant, PF 3 completed Not Available [facility] 04/19/2025 10:53:19 COVID-19, mRNA, LNP-S, PF, miles-sucrose, 30 mcg/0.3 mL 4 completed Not Available [facility] 04/19/2025 10:53:19 Influenza, high-dose, trivalent, PF 4 completed Not Available [facility] 04/19/2025 10:53:19 Pneumococcal conjugate PCV21, polysaccharide [id number] conjugate, PF 5 completed Not Available [facility] 04/19/2025 10:53:19 COVID-19, mRNA, LNP-S, PF, 50 mcg/0.5 mL 5 completed Not Available [facility] 04/19/2025 10:53:19 Influenza, high-dose, trivalent, PF 5 completed Not Available [facility] 04/19/2025 10:53:19 Past Encounters Encounter ID Performer Location Encounter Start Date Encounter Closed Date Diagnosis/Indication Diagnosis SNOMED-CT Code Diagnosis ICD10 Code Diagnosis IMO Codes Diagnosis Note [id number] SHAQ BERRY MD [facility] [address] [place] [address] 04/19/2025 10:52:33 04/25/2025 08:04:40 Seropositive rheumatoid arthritis 604567988 M05.9 [id number] [facility] [...] be worsened by activity and positionin g. Has done PT for right shoulder with improvemen t. Has also had steroid injections in right shoulder. I have advised the patient to stop methotrexa te now given recent diagnosis of lung fibrosis, as methotrexa te itself can cause issues with lung fibrosis. Lung fibrosis can also be seen related to rheumatoid arthritis diagnosis itself. Rituximab has been denied by insurance twice for his interstiti al lung disease (per pulmonolog y). Plaquenil was started at the end of October. Tolerating well so far without any acute side effects. On end of Prednisone taper from Pulmonolog y for ILD. Will plan to continue with Plaquenil. Interstiti al lung disease 404242522 J84.9 88615 New diagnosis in May 2024, during hospitaliz ation for what sounds like acute hypoxic respirator y failure. Currently on prednisone (but this is not clear? )Follows with pulmonolog y, Dr. Macdonald. Rituximab was denied by his insurance per pulmonolog y. On end of Prednisone taper from pulmonolog y. I started Cellcept at last visit, currently on 500 mg BID. Will update labs today, and if ok, increase dose to 1000 mg BID. 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 Drug therapy finding 309 [id number] Z79.899 [id number] Advised pt to double check with his eye doctor about updated Plaquenil eye exam. Long-term current use of immunosuppressive drug [id number] Z79.60 [id number] Tolerating Cellcept well without acute side effects. Will update monitoring labs today.If labs are ok, will increase Cellcept to 1000 mg BID Long-term current use of systemic steroid [id number] 82005 Z79.52 [id number] Has one more week of Prednisone taper left from Pulmonolog y for his ILD. He has no acute side effects. 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 Took Valtrex. Health Concerns Section Related Observation LastModified by Organization Detai ls LastModified Time None Recorded Concern Status LastModified by Organization Details LastModified Time None Recorded Payers Encounter Date Sequence Insurance Name Policy Number Policy Rodriguez Covered Member ID Rodriguez Member ID Guarantor Name 04/19/2025 1 [employer] (MEDICARE REPLACEMENT/ ADVANTAGE - PPO) Julián Tellez [id number] Julián Tellez Notes Date Note Type Note Provider Name and Address Organization Details Recorded Time 04/19/2025 text/html ROS as noted in the HPI Last seen 01/18/25. Here with . Since last visit, Plaquenil continued; Cellcept 500 mg BID added for ILD. He is currently on end of Prednisone taper from Pulmonology.Had eye exam. Has had recent herpes complex in right eye. Took Valtrex.Reports arthritis seems to be doing better. Feels like effect of Plaquenil more. Denies significant morning stiffness.Has follow-up with Pulmonology in May.Respiratory symptoms are better.Denies rashes, nausea, vomiting, diarrhea, blood in urine or stool, constitutional symptoms. From initial HPI 11/12/24:Self-referre d to establish care for arthritis. Here with , who is also seeing me today as new patient. Was recommended to establish with a new hadoop application developer, given long-term use of Methotrexate.Has been on methotrexate since 2008 for arthritis, which is unspecified. Previously seen [...] does not know the dose.Reports that the system validation engineer had also recommended to see rheumatology. Denies any rash, oral ulcers, alopecia, pleuritic pain or shortness of breath, photosensitivity, dry mouth, Raynaud's phenomenon. Reports dry eyes after having had cataract surgery. Follows with eye doctor in [place]. No history of psoriasis.No history of inflammatory bowel disease.No history of inflammatory eye disease.No history of recurrent infections, fevers.Denies family history of autoimmune disease or lung issues. SHAQ BERRY MD [facility] [place], [address], [facility] 04/19/2025 17:19:22
--- OUTSIDE RECORDS SUMMARY | 2025-05-19 12:51 | XMS_ITS | Data Portability ---
Author Organization [facility], [facility] CLOS[facility] Address [address] [place] [address] Care Team Providers Care Director Shopper [employer] Name Role Phone ANGELA WATKINS Primary Care Provider Assessment No assessment recorded. Plan of Treatment Reminders Order Date Submit Date Provider Last Modified By Organization Details Last Modified Time Details Appointments RHEUM RECHECK 2025 11:30A M SHAQ CARRILLO MD Not available Not available Not available Lab CBC w/ auto diff 2024 025 [facility], [address] [place] [address], [id number], 04/19/2025 13:21:07 creatinin e, serum or plasma 2024 025 [facility], [address] [place] [address], [id number], 04/19/2025 13:26:01 AST/SGOT (aspartat e aminotran sferase), serum or plasma 2024 025 [facility], [address] [place] [address], [id number], 04/19/2025 13:25:59 ALT (alanine aminotran sferase), serum or plasma 2024 025 [facility], [address] [place] [address], [id number], 04/19/2025 13:26:03 CHRISTINE (antinucl ear antibodie s) titer + pattern, ifa, serum 06/13/ 2025 06/13/2 025 [facility], [address] [place] [address], [id number], 11/15/2024 16:25:51 sjogren antibody panel, serum 2024 025 [facility], [address] [place] [address], [address], 11/13/2024 14:08:08 C3 (compleme nt), serum or plasma 2024 025 [facility], [address] [place] [address], [address], 11/15/2024 15:54:59 C4 (compleme nt), serum or plasma 2024 025 [facility], [address] [place] [address], [address], 11/15/2024 15:54:57 protein electroph oresis panel, serum or plasma 2024 025 [facility], [address] [place] [address], [address], 11/16/2024 10:25:37 rf (rheumato id factor), serum 2024 025 [facility], [address] [place] [address], [address], 11/12/2024 17:28:42 ccp (cyclic citrullin ated peptide) iga+igg, serum 2024 025 [facility], [address] [place] [address], [address], 11/16/2024 16:41:44 hepatitis (A+B+C) panel, serum 2024 025 [facility], [address] [place] [address], [address], 11/12/2024 17:19:15 uric acid, serum or plasma 2024 025 [facility], [address] [place] [address], [address], 11/12/2024 17:28:41 magnesium , QN, serum or plasma 2024 025 [facility], [address] [place] [address], [address], 11/12/2024 17:28:36 iron + total iron-bind ing capacity (TIBC), serum 2024 025 [facility], [address] [place] [address], [address], 11/12/2024 17:28:37 ferritin, serum or plasma 2024 025 [facility], [address] [place] [address], [address], 11/12/2024 17:28:39 PTH (parathyr oid hormone), intact + calcium, serum or plasma 2024 025 [facility], [address] [place] [address], [address], 11/12/2024 17:19:18 CBC w/ auto diff 2024 025 [facility], [address] [place] [address], [address], 11/12/2024 16:01:36 CMP, serum or plasma 2024 025 [facility], [address] [place] [address], [address], 11/12/2024 17:28:38 Referral physical therapist referral [address] [facility], [facility], [place], [address], 11/26/2024 08:07:40 Procedures None recorded. Surgeries None recorded. Imaging XR, shoulder, 2 or more view - Eval for inflammat ory arthritis , chondroca lcinosis 2024 025 [facility], [address] [place], [address], 11/12/2024 15:44:57 XR, wrist + hand - Eval for inflammat ory arthritis - chondroca lcinosis, rheumatoi d arthritis 2024 025 [facility], [address] [place], [address], 11/12/2024 15:45:57 Medication Orders CellCept 500 mg tablet 2024 025 [facility], [address] [place] [address] [address] [place], [id number], 04/19/2025 17:27:52 CellCept 500 mg tablet 2024 025 [facility], [address] [place] [address] [address] [place], [place], [id number], 01/18/2025 12:17:45 Patient TargetsNo targets recorded. Patient Instructions Encounter Date Encounter Id Patient Instructions Last Modified By Organization Details Last Modified Time 11/12/2024 [id number] medical record request* - Hx pulmonary fibrosis. Please fax last 2 office notes. Thank you [email or web address] Not available 11/22/2024 08:05:56 Follow up 6-8 weeks after initiation of PT A total of 65 minutes was spent on this patient encounter. Time spent includes some or all of the following, both oczd-db-nusz time and non isgy-ny-ntny time, but is not limited to: Preparing to see the patient and reviewing records Discussion or coordination of car with other health hospice care sales consultant Reviewing records or discussing history of plan [...] 10*3/ uL 3.8-10 .8 high Not Available [facility] [address] [place] [address], [address], 11/12/2024 16:01:36 11/13/19 25 11/12/2024 COMPL ETE BLOOD COUNT red blood cells 5.02 10*6/ uL 4.20-5 .80 normal Not Available [facility] [address] [place] [address], [address], 11/12/2024 16:01:36 11/13/19 25 11/12/2024 COMPL ETE BLOOD COUNT hemoglobin 16.7 g/dL 14.0-1 8.0 normal Not Available [facility] [address] [place] [address], [address], 11/12/2024 16:01:36 11/13/19 25 11/12/2024 COMPL ETE BLOOD COUNT hematocrit 49.4 % 40.0-5 2.0 normal Not Available [facility] [address] [place] [address], [address], 11/12/2024 16:01:36 11/13/19 25 11/12/2024 COMPL ETE BLOOD COUNT MCV 99 fL 80-100 normal Not Available [facility] [address] [place] [address], [address], 11/12/2024 16:01:36 11/13/19 25 11/12/2024 COMPL ETE BLOOD COUNT MCH 33 pg 26-35 normal Not Available [facility] [address] [place] [address], [address], 11/12/2024 16:01:36 11/13/19 25 11/12/2024 COMPL ETE BLOOD COUNT MCHC 34 g/dL 32-36 normal Not Available [facility] [address] [place] [address], [address], 11/12/2024 16:01:36 11/13/19 25 11/12/2024 COMPL ETE BLOOD COUNT RDW 18.7 % 11.0-1 5.0 high Not Available [facility] [address] [place] [address], [address], 11/12/2024 16:01:36 11/13/19 25 11/12/2024 COMPL ETE BLOOD COUNT MPV 8.1 fL 6.2-10 .5 normal Not Available [facility] [address] [place] [address], [address], 11/12/2024 16:01:36 11/13/19 25 11/12/2024 COMPL ETE BLOOD COUNT platelet count 313 10*3/ uL 150-40 0 normal Not Available [facility] [address] [place] [address], [address], 11/12/2024 16:01:36 11/13/19 25 11/12/2024 COMPL ETE BLOOD COUNT neutrophil,a bsolute 15.1 10*3/ uL 1.6-8. 4 high Not Available [facility] [address] [place] [address], [address], 11/12/2024 16:01:36 11/13/19 25 11/12/2024 COMPL ETE BLOOD COUNT lymphocyte,a bsolute 1.2 10*3/ uL 0.4-5. 1 normal Not Available [facility] [address] [place] [address], [address], 11/12/2024 16:01:36 11/13/19 25 11/12/2024 COMPL ETE BLOOD COUNT monocyte,abs olute 0.2 10*3/ uL 0.0-1. 2 normal Not Available [facility] [address] [place] [address], [address], 11/12/2024 16:01:36 11/13/19 25 11/12/2024 COMPL ETE BLOOD COUNT eosinophil,a bsolute 0.0 10*3/ uL 0.0-0. 8 normal Not Available [facility] [address] [place] [address], [address], 11/12/2024 16:01:36 11/13/19 25 11/12/2024 COMPL ETE BLOOD COUNT basophil,abs olute 0.0 10*3/ uL 0.0-0. 3 normal Not Available [facility] [address] [place] [address], [address], 11/12/2024 16:01:36 11/13/19 25 11/12/2024 COMPL ETE BLOOD COUNT % neutrophils 91.4 % 42.0-7 8.0 high Not Available [facility] [address] [place] [address], [address], 11/12/2024 16:01:36 11/13/19 25 11/12/2024 COMPL ETE BLOOD COUNT % lymphocytes 7.0 % 11.0-4 7.0 low Not Available [facility] [address] [place] [address], [address], 11/12/2024 16:01:36 11/13/19 25 11/12/2024 COMPL ETE BLOOD COUNT % monocytes 1.0 % 0.0-11 .0 normal Not Available [facility] [address] [place] [address], [address], 11/12/2024 16:01:36 11/13/19 25 11/12/2024 COMPL ETE BLOOD COUNT % eosinophils 0.3 % 0.0-7. 0 normal Not Available [facility] [address] [place] [address], [address], 11/12/2024 16:01:36 11/13/19 25 11/12/2024 COMPL ETE BLOOD COUNT % basophils 0.3 % 0.0-3. 0 normal Not Available [facility] [address] [place] [address], [address], 11/12/2024 16:01:36 11/13/19 25 11/12/2024 COMPL ETE BLOOD COUNT nucleated red cells 0.0 % 0.0-0. 9 normal Not Available [facility] [address] [place] [address], [address], 11/12/2024 16:01:36 11/13/19 25 11/12/2024 COMPL ETE BLOOD COUNT nucleated RBCs, absolute 0.00 10*3/ uL not estab. normal Not Available [facility] [address] [place] [address], [address], 11/12/2024 16:01:36 11/13/19 25 11/12/2024 HEPAT ITIS PANEL hepatitis A Ab, IgM NONREA CTIVE nonrea ctive normal Not Available [facility] [address] [place] [address], [address], 11/12/2024 17:19:15 11/13/19 25 11/12/2024 HEPAT ITIS PANEL hepatitis B surface Ag NONREA CTIVE nonrea ctive normal Not Available [facility] [address] [place] [address], [address], 11/12/2024 17:19:15 11/13/19 25 11/12/2024 HEPAT ITIS PANEL hepatitis B core Ab,IgM NONREA CTIVE nonrea ctive normal Not Available [facility] [address] [place] [address], [address], 11/12/2024 17:19:15 11/13/19 25 11/12/2024 HEPAT ITIS PANEL hcab, reflex viral RNA qt NONREA CTIVE nonrea ctive normal Antib odies to HCV were not detec norm; does not exclu de the possi bilit y of expos ure to HCV. Not Available [facility] [address] [place] [address], [place], [address], 11/12/2024 17:19:15 11/13/19 25 11/12/2024 PTH, INTAC [...] ===== ===== ===== ===== ==== Not Available [facility] [address] [place] [address], [address], 11/12/2024 17:35:44 11/13/19 25 11/12/2024 PTH, INTAC T WITH CA calcium 9.8 mg/dL 8.6-10 .2 normal Not Available [facility] [address] [place] [address], [address], 11/12/2024 17:35:44 11/13/19 25 11/12/2024 MAGNE SIUM magnesium 2.5 mg/dL 1.6-2. 6 normal Not Available [facility] [address] [place] [address], [address], 11/12/2024 17:28:36 11/13/1911/12/2024 IRON PANEL -TOTA L AND TIBC iron 92 ug/dL 59-158 normal Not Available [facility] [address] [place] [address], [address], 11/12/2024 17:28:37 11/13/19 25 11/12/2024 IRON PANEL -TOTA L AND TIBC total iron binding cap. 326 ug/dL _(byron c) 250-45 0 normal Not Available [facility] [address] [place] [address], [address], 11/12/2024 17:28:37 11/13/19 25 11/12/2024 IRON PANEL -TOTA L AND TIBC unsat.iron binding cap. 234 ug/dL 112-34 7 normal Not Available [facility] [address] [place] [address], [address], 11/12/2024 17:28:37 11/13/19 25 11/12/2024 IRON PANEL -TOTA L AND TIBC % saturation 28 %_(ca lc) 20-50 normal Not Available [facility] [address] [place] [address], [address], 11/12/2024 17:28:37 11/13/19 25 11/12/2024 COMP. METAB OLIC PANEL glucose 147 mg/dL 74-100 high Not Available [facility] [address] [place] [address], [address], 11/12/2024 17:28:38 11/13/19 25 11/12/2024 COMP. METAB OLIC PANEL blood urea nitrogen 27 mg/dL 6-20 high Not Available [facility] [address] [place] [address], [address], 11/12/2024 17:28:38 11/13/19 25 11/12/2024 COMP. METAB OLIC PANEL creatinine 1.19 mg/dL 0.70-1 .20 normal Not Available [facility] [address] [place] [address], [address], 11/12/2024 17:28:38 11/13/19 25 11/12/2024 COMP. METAB OLIC PANEL BUN/creatini ne ratio 23 (calc ) 10-20 high Not Available [facility] [address] [place] [address], [address], 11/12/2024 17:28:38 11/13/19 25 11/12/2024 COMP. METAB OLIC PANEL sodium 138 mmol/ L 136-14 5 normal Not Available [facility] [address] [place] [address], [address], 11/12/2024 17:28:38 11/13/19 25 11/12/2024 COMP. METAB OLIC PANEL potassium 5.0 mmol/ L 3.4-5. 0 normal Not Available [facility] [address] [place] [address], [address], 11/12/2024 17:28:38 11/13/19 25 11/12/2024 COMP. METAB OLIC PANEL chloride 102 mmol/ L 98-107 normal Not Available [facility] [address] [place] [address], [address], 11/12/2024 17:28:38 11/13/19 25 11/12/2024 COMP. METAB OLIC PANEL carbon dioxide 23 mmol/ L 22-31 normal Not Available [facility] [address] [place] [address], [address], 11/12/2024 17:28:38 11/13/19 25 11/12/2024 COMP. METAB OLIC PANEL anion gap 13 (calc ) 7-25 normal Not Available [facility] [address] [place] [address], [address], 11/12/2024 17:28:38 11/13/19 25 11/12/2024 COMP. METAB OLIC PANEL calcium 9.6 mg/dL 8.6-10 .2 normal Not Available [facility] [address] [place] [address], [address], 11/12/2024 17:28:38 11/13/19 25 11/12/2024 COMP. METAB OLIC PANEL total protein 7.6 g/dL 6.4-8. 3 normal Not Available [facility] [address] [place] [address], [address], 11/12/2024 17:28:38 11/13/19 25 11/12/2024 COMP. METAB OLIC PANEL albumin 4.7 g/dL 3.5-5. 2 normal Not Available [facility] [address] [place] [address], [address], 11/12/2024 17:28:38 11/13/19 25 11/12/2024 COMP. METAB OLIC PANEL globulin 2.9 1.5-4. 5 normal Not Available [facility] [address] [place] [address], [address], 11/12/2024 17:28:38 11/13/19 25 11/12/2024 COMP. METAB OLIC PANEL albumin/glob ulin ratio 1.6 (calc ) 1.1-2. 5 normal Not Available [facility] [address] [place] [address], [address], 11/12/2024 17:28:38 11/13/19 25 11/12/2024 COMP. METAB OLIC PANEL bilirubin, total 1.0 mg/dL 0.1-1. 2 normal Not Available [facility] [address] [place] [address], [address], 11/12/2024 17:28:38 11/13/19 25 11/12/2024 COMP. METAB OLIC PANEL alkaline phosphatase 107 U/L 40-129 normal Not Available [facility] [address] [place] [address], [address], 11/12/2024 17:28:38 11/13/19 25 11/12/2024 COMP. METAB OLIC PANEL AST 32 U/L 0-40 normal Not Available [facility] [address] [place] [address], [address], 11/12/2024 17:28:38 11/13/19 25 11/12/2024 COMP. METAB OLIC PANEL ALT 51 U/L 0-41 high Not Available [facility] [address] [place] [address], [address], 11/12/2024 17:28:38 11/13/19 25 11/12/2024 COMP. METAB OLIC PANEL eGFR 62 >= 60 normal NOT E New calcu latio n for GFR (CKD- EPI 2020) is formu lated witho ut race adjus tment facto rs at the recom menda tion of the Jayme schmidt and Heraclio Gutierrez ty of Nephr ology . This calcu latio n has not been valid ated in pregn ant women . For pedia tric patie nts refer to https ://ric w.roly mcnamara.o rg/pr ofess ional s/KDO QI/gf r_cal culat orPed Not Available [facility] [address] [place], [address], 11/12/2024 17:28:38 11/13/19 25 11/12/2024 OLI TIN ferritin 242 NG/mL 30-400 normal Not Available [facility] [address] [place], [address], 11/12/2024 17:28:39 11/13/19 25 11/12/2024 URIC ACID uric acid 2.5 mg/dL 3.4-7. 0 low Refer ence range s are based on popul ation norms and do not neces ani terry late with treat ment tartyler ts. In patie nts with an estab [...] mstan oscar. Arthr itis Care and Res[facility] Vol 64 No 10, 2011 Heraclio simmons Colle ge of Rheum atolo gy ----- ----- ----- ----- ----- ----- ----- ----- ----- ----- ----- ---- Not Available [facility] [address] [place], [address], 11/12/2024 17:28:41 11/13/19 25 11/12/2024 RF SCREE N, QUANT . rf screen, quant. 246.0 [IU]/ mL 0.0-13 .9 high Test excee ds linea rity. Resul t based on speci men dilut ion. Not Available [facility] [address] [place] [address], [address], 11/12/2024 17:28:42 11/13/19 25 11/13/2024 SS-A/ SS-B (SJOG SANDRINE'S ) ss-A Ab <1.0 NEG ai <1.0 neg normal Not Available [facility] [address] [place] [address], [address], 11/13/2024 14:08:08 11/13/19 25 11/13/2024 SS-A/ SS-B (SJOG SANDRINE'S ) ss-B Ab <1.0 NEG ai <1.0 neg normal Not Available [facility] [address] [place] [address], [address], 11/13/2024 14:08:08 11/13/19 25 11/15/2024 C4 C4 6 mg/dL 15-53 low Not Available [facility] [address] [place] [address], [address], 11/15/2024 15:54:57 11/13/19 25 11/15/2024 C3 C3 126 mg/dL 82-185 normal Not Available [facility] [address] [place] [address], [address], 11/15/2024 15:54:59 11/13/19 25 11/15/2024 CHRISTINE SCREE N, IFA CHRISTINE screen NEGATI VE negati ve normal CHRITSINE IFA is a first line scree n [...] Patte rns (http s://d oi.or g/10. 1515/ [facility]- 2017- 0052) For addit ional infor ghassan nuñez e refer to http: //[facility] patricia callahan.Slim stDia gnost ics.c om/fa q/FAQ 177 (This link is being provi ded for infor juli nal/ educa laz l purpo ses only. ) Not Available [facility] [address] [place] [address], [address], 11/15/2024 16:25:51 11/13/19 25 11/16/2024 PROTE IN ELECT [facility] RESIS , SERUM protein, total 6.9 g/dL 6.1-8. 1 normal Not Available [facility] [address] [place] [address], [address], 11/18/2024 10:09:38 11/13/19 25 11/18/2024 PROTE IN ELECT [facility] RESIS , SERUM albumin 4.3 g/dL 3.8-4. 8 normal Not Available [facility] [address] [place], [address], 11/18/2024 10:09:38 11/13/19 25 11/18/2024 PROTE IN [facility] RESIS , SERUM tdtlq-2-slry ulin 0.3 g/dL 0.2-0. 3 normal Not Available [facility] [address] [place] [address], [address], 11/18/2024 10:09:38 11/13/19 25 11/18/2024 PROTE IN ELECT [facility] RES[facility] , SERUM multp-3-kzec ulin 0.9 g/dL 0.5-0. 9 normal Not Available [facility] [address] [place], [address], 11/18/2024 10:09:38 11/13/19 25 11/18/2024 PROTE IN [facility] RESIS , SERUM beta 1 globulin 0.5 g/dL 0.4-0. 6 normal Not Available [facility] [address] [place], [address], 11/18/2024 10:09:38 11/13/19 25 11/18/2024 PROTE IN [facility] RESIS , SERUM beta 2 globulin 0.3 g/dL 0.2-0. 5 normal Not Available [facility] [address] [place] [address], [address], 11/18/2024 10:09:38 11/13/19 25 11/18/2024 PROTE IN [facility] RESIS , SERUM gamma globulin 0.7 g/dL 0.8-1. 7 low Not Available [facility] [address] [place], [address], 11/18/2024 10:09:38 11/13/19 25 11/18/2024 PROTE IN [facility] RESIS , SERUM interpretati on SEE NOTE normal Hypog ammag lobul inemi a may be seen in early or evolv ing lymph oprol ifera tive disor ders, acqui red or conge nital immun e defic ienci es, immun osupp ressi ve thera py and light chain disea se. Consi rebekah urine prote in [facility] resis , urine immun ofixa tion and/o r free light chain s if clini sarah indic ated. Not Available [facility] [address] [place], [address], 11/18/2024 10:09:38 11/13/19 25 11/16/2024 ANTI- CCP anti-ccp <16 units normal Refer ence Range Negat tyrone: <20 Weak Posit tyrone: 20-39 Moder ate Posit tyrone: 40-59 Stron g Posit tyrone: >59 Not Available [facility] [address] [place] [address], [address], 11/16/2024 16:41:43 04/19/20 25 04/19/2025 COMPL ETE BLOOD COUNT white blood cells 16.7 10*3/ uL 3.8-10 .8 high Not Available [facility] [address] [place] [address], [address], 04/19/2025 13:21:07 04/19/20 25 04/19/2025 COMPL ETE BLOOD COUNT red blood cells 5.69 10*6/ uL 4.20-5 .80 normal Not Available [facility] [address] [place] [address], [address], 04/19/2025 13:21:07 04/19/20 25 04/19/2025 COMPL ETE BLOOD COUNT hemoglobin 17.9 g/dL 14.0-1 8.0 normal Not Available [facility] [address] [place] [address], [address], 04/19/2025 13:21:07 04/19/20 25 04/19/2025 COMPL ETE BLOOD COUNT hematocrit 53.2 % 40.0-5 2.0 high Not Available [facility] [address] [place] [address], [address], 04/19/2025 13:21:07 04/19/20 25 04/19/2025 COMPL ETE BLOOD COUNT MCV 94 fL 80-100 normal Not Available [facility] [address] [place] [address], [address], 04/19/2025 13:21:07 04/19/20 25 04/19/2025 COMPL ETE BLOOD COUNT MCH 32 pg 26-35 normal Not Available [facility] [address] [place] [address], [address], 04/19/2025 13:21:07 04/19/20 25 04/19/2025 COMPL ETE BLOOD COUNT MCHC 34 g/dL 32-36 normal Not Available [facility] [address] [place] [address], [address], 04/19/2025 13:21:07 04/19/20 25 04/19/2025 COMPL ETE BLOOD COUNT RDW 15.9 % 11.0-1 5.0 high Not Available [facility] [address] [place] [address], [address], 04/19/2025 13:21:07 04/19/20 25 04/19/2025 COMPL ETE BLOOD COUNT MPV 7.7 fL 6.2-10 .5 normal Not Available [facility] [address] [place] [address], [address], 04/19/2025 13:21:07 04/19/20 25 04/19/2025 COMPL ETE BLOOD COUNT platelet count 232 10*3/ uL 150-40 0 normal Not Available [facility] [address] [place] [address], [address], 04/19/2025 13:21:07 04/19/20 25 04/19/2025 COMPL ETE BLOOD COUNT neutrophil,a bsolute 13.1 10*3/ uL 1.6-8. 4 high Not Available [facility] [address] [place] [address], [address], 04/19/2025 13:21:07 04/19/20 25 04/19/2025 COMPL ETE BLOOD COUNT lymphocyte,a bsolute 2.0 10*3/ uL 0.4-5. 1 normal Not Available [facility] [address] [place] [address], [address], 04/19/2025 13:21:07 04/19/20 25 04/19/2025 COMPL ETE BLOOD COUNT monocyte,abs olute 1.3 10*3/ uL 0.0-1. 2 high Not Available [facility] [address] [place] [address], [phone], 04/19/2025 13:21:07 04/19/20 25 04/19/2025 COMPL ETE BLOOD COUNT eosinophil,a bsolute 0.2 10*3/ uL 0.0-0. 8 normal Not Available [facility] [address] [place] [address], [phone], 04/19/2025 13:21:07 04/19/20 25 04/19/2025 COMPL ETE BLOOD COUNT basophil,abs olute 0.1 10*3/ uL 0.0-0. 3 normal Not Available [facility] [address] [place] [address], [phone], 04/19/2025 13:21:07 04/19/20 25 04/19/2025 COMPL ETE BLOOD COUNT % neutrophils 78.4 % 42.0-7 8.0 high Not Available [facility] [address] [place] [address], [address], 04/19/2025 13:21:07 04/19/20 25 04/19/2025 COMPL ETE BLOOD COUNT % lymphocytes 12.2 % 11.0-4 7.0 normal Not Available [facility] [address] [place] [address], [phone], 04/19/2025 13:21:07 04/19/20 25 04/19/2025 COMPL ETE BLOOD COUNT % monocytes 7.9 % 0.0-11 .0 normal Not Available [facility] [address] [place] [address], [address], 04/19/2025 13:21:07 04/19/20 25 04/19/2025 COMPL ETE BLOOD COUNT % eosinophils 1.1 % 0.0-7. 0 normal Not Available [facility] [address] [place] [address], [address], 04/19/2025 13:21:07 04/19/20 25 04/19/2025 COMPL ETE BLOOD COUNT % basophils 0.4 % 0.0-3. 0 normal Not Available [facility] [address] [place] [address], [phone], 04/19/2025 13:21:07 04/19/20 25 04/19/2025 COMPL ETE BLOOD COUNT nucleated red cells 0.1 % 0.0-0. 9 normal Not Available [facility] [address] [place] [address], [phone], 04/19/2025 13:21:07 04/19/20 25 04/19/2025 COMPL ETE BLOOD COUNT nucleated RBCs, absolute 0.01 10*3/ uL not estab. normal Not Available [facility] [address] [place] [address], [phone], 04/19/2025 13:21:07 04/19/20 25 04/19/2025 AST AST 22 U/L 0-40 normal Not Available [facility] [address] [place] [address], [phone], 04/19/2025 13:25:59 04/19/20 25 04/19/2025 CREAT ININE creatinine 1.15 mg/dL 0.70-1 .20 normal Not Available [facility] [address] [place] [address], [address], 04/19/2025 13:26:01 04/19/20 25 04/19/2025 ALT ALT 22 U/L 0-41 normal Not Available [facility] [address] [place] [address], [phone], 04/19/2025 13:26:03 11/13/19 25 11/12/2024 XR, shoul rebekah, 2 or more view [facility] [address] [place] [id number] Patien t Name: CHACHA Reina RODNEY ESCOBARON Patiarturo t : [birth year] Patiarturo t 78 [...] bryson MD on 025 3:39 PM [email or web address] [facility] [address] [place] [address], [phone], 11/22/2024 10:57:37 11/13/19 25 11/12/2024 [facility] [address] [place] [address] Patiarturo t Name: CHACHA EDMONDSON Patiarturo esquivel : [birth year] Patiarturo t 78 Orderi [...] Interp reted By: Kendra bryson MD Electr on ly Signed By: Kendra bryson MD on 3:40 PM [email or web address] [facility] [address], [phone], 11/22/2024 10:57:37 Result Notes Documentation Provider Name and Address Organization Details Recorded Time Xr, Shoulder, 2 Or More View : [address] [address] Patient Name: CHACHA KUMARI Patient : 1945 [...] Interpreted By: Miles Alexandre MD Leidy Reed [place], [place] - [facility] 11/22/2024 10:57:37 Xr, Wrist + Hand : [address] [address] Patient Name: CHACHA KUMARI Patient : 1945 [...] Interpreted By: Miles Alexandre MD Leidy Reed [facility] 11/22/2024 10:57:37 Procedures Surgical History Date Name Laterality Status Provider Name and Address Organization Details Recorded Time 5 Injection - Joint/Bursa, Major, w/o US completed SHAQ CARRILLO MD [address] [place] [address], [phone], [facility] 01/18/2025 18:33:32 [facility] shoulder [facility]12[facility] 14:13:58 Imaging Results None recorded. Procedure Notes None recorded. Medical Equipment None Reported. Allergies Allergen ID Allergen Name Allergen Category Reaction Reaction Severity Criticality Documentation Date Start Date Code Code System Note Provider Name and Address Organization Details Recorded Time 875399 cephalexi n medicatio n Not available Not available Not available 11/12/2024 2231 [facility] 14:[facility]36 Medications Name Sig Start Date Stop [...] Address Organization Details Last Updated DateTime 11/12/2024 77689.22 g 25.2 kg/m2 180.34 cm 112/70 mm[Hg] Tania Wilkes [facility] 11/12/2024 14:22:35 Date Recorded Body height Body mass index (BMI) Body weight Heart rate Oxygen saturation Systolic And Diastolic Provider Name and Address Organization Details Last Updated DateTime 5 180.34 cm 24.1 kg/m2 07820.1 8 g 39 /min 98 % 146/90 mm[Hg] Evan Connelly [facility] 5 11:27:25 Date Recorded Body height Body mass index (BMI) Body weight Heart rate Oxygen saturation Systolic And Diastolic Provider Name and Address Organization Details Last Updated DateTime 5 180.34 cm 24 kg/m2 56652.3 2 g 75 /min 98 % 130/70 mm[Hg] Say Jon [facility] 5 11:24:54 Social History Question Answer Notes LastModified by Organizat ion Details LastModified Time Tobacco Smoking Status Former Smoker Tania Wilkes [facility] 11/12/2024 14:12:55 What Is Your Level [...] pneumococcal, unspecified formulation 0 completed Not Available Replaced by [facility] 04/19/2025 10:53:19 Pneumococcal conjugate PCV 13 5 completed Not Available [facility] 04/19/2025 10:53:19 Pneumococcal conjugate PCV 13 6 completed Not Available Replaced by [facility] 04/19/2025 10:53:19 Influenza, split virus, quadrivalent, PF 7 completed Not Available [facility] 04/19/2025 10:53:19 Tdap 7 completed Not Available Replaced by [facility] 04/19/2025 10:53:19 Hep A, adult 9 completed Not Available Replaced by [facility] 04/19/2025 10:53:19 Influenza, high-dose, quadrivalent, PF 0 completed Not Available Replaced by [facility] 04/19/2025 10:53:19 COVID-19, mRNA, LNP-S, PF, 100 mcg/0.5mL dose or 50 mcg/0.25mL dose 1 completed Not Available [facility] 04/19/2025 10:53:19 COVID-19, mRNA, LNP-S, PF, 100 mcg/0.5mL dose or 50 mcg/0.25mL dose 1 completed Not Available [facility] 04/19/2025 10:53:19 zoster recombinant 1 completed Not Available [facility] 04/19/2025 10:53:19 COVID-19, mRNA, LNP-S, PF, 100 mcg/0.5mL dose or 50 mcg/0.25mL dose 1 completed Not Available [facility] 04/19/2025 10:53:19 Influenza, high-dose, quadrivalent, PF 2 completed Not Available [facility] 04/19/2025 10:53:19 COVID-19, mRNA, LNP-S, bivalent, PF, 50 mcg/0.5 mL or 25mcg/0.25 mL dose 2 completed Not Available [facility] 04/19/2025 10:53:19 COVID-19, mRNA, LNP-S, PF, 50 mcg/0.5 mL 3 completed Not Available [facility] 04/19/2025 10:53:19 Influenza, high-dose, quadrivalent, PF 3 completed Not Available [facility] 04/19/2025 10:53:19 Pneumococcal conjugate PCV20, polysaccharide [id number] conjugate, adjuvant, PF 3 completed Not Available [facility] 04/19/2025 10:53:19 COVID-19, mRNA, LNP-S, PF, miles-sucrose, 30 mcg/0.3 mL 4 completed Not Available [facility] 04/19/2025 10:53:19 Influenza, high-dose, trivalent, PF 4 completed Not Available [facility] 04/19/2025 10:53:19 Pneumococcal conjugate PCV21, polysaccharide [id number] conjugate, PF 5 completed Not Available [facility] 04/19/2025 10:53:19 COVID-19, mRNA, LNP-S, PF, 50 mcg/0.5 mL 5 completed Not Available [facility] 04/19/2025 10:53:19 Influenza, high-dose, trivalent, PF 5 completed Not Available [facility] 04/19/2025 10:53:19 Past Encounters Encounter ID Performer Location Encounter Start Date Encounter Closed Date Diagnosis/Indication Diagnosis SNOMED-CT Code Diagnosis ICD10 Code Diagnosis IMO Codes Diagnosis Note [id number] SHAQ CARRILLO MD [facility] [address] [place] [address] 11/12/2024 14:00:42 11/15/2024 04:07:53 History of arthritis 689518417 Z87.39 [id number] Previously seen at the [facility]. Last seen in 2018. Previously seen by Dr. Vinson, then Dr. Lorenz. Has been on methotrexa te since 2007. 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 Last seen by previous rheumatbahman tran in 2018. Methotrexa te since has been prescribed by his PCP. I have advised the patient to stop methotrexa te use immediatel y, given new onset pulmonary fibrosis. [id number] SHAQ CARRILLO MD [facility] [address] [place] [address] 01/18/2025 10:28:23 01/19/2025 15:14:20 Seropositive rheumatoid arthritis 971202317 M05.9 [id number] Previously seen at the [facility]. Last seen in 2018. Previously seen by Dr. Vinson, then Dr. Lorenz. Has been on methotrexa te since 2007. The last few years, he has not had followup with rheumatolo ban, and has been getting prescripti on from his primary care. Unclear exactly what his previous diagnosis was, but I presume possibly rheumatoid arthritis or pseudogout given methotrexa te use. Joints primarily involved include right shoulder, right wrist, right hand. Morning stiffness currently is about 30 minutes. Symptoms can be better with activity, but can also be worsened by activity and positionin g. Doing PT for right shoulder Consider MRI if symptoms do not improve with PT. I have advised the patient to stop methotrexa te now given recent diagnosis of lung fibrosis, as methotrexa te itself can cause issues with lung fibrosis. Lung fibrosis can also be seen related to rheumatoid arthritis diagnosis itself. It is unclear if he is on any prednisone from pulmonolog y. states they never got a prescripti on, though notes indicate otherwise? Rituximab has been denied by insurance twice for his interstiti al lung disease. Plaquenil was started at the end of October. Tolerating well so far without any acute side effects. This is too early in terms of full effect, will give more time. Steroid injection also given in right shoulder today without acute complicati ons. Interstiti al lung disease 566829598 J84.9 41994 New diagnosis in May 2024, during hospitaliz ation for what sounds like acute hypoxic respirator y failure. Currently on prednisone (but this is not clear? )Follows with pulmonolog y, Dr. Macdonald. It is unclear if he is on any prednisone from pulmonolog y. states they never got a prescripti on, though notes indicate otherwise? Rituximab has been denied by insurance twice for his interstiti al lung disease. Will start CellCept.I discussed the risks and benefits of therapy with Cellcept including infection, diarrhea, hepatitis, and low blood counts. In case of , cellcept is a potential teratogen. The patient expressed understand ing and agreed to initiate therapy. Will start with low-dose 500 mg twice a day. If tolerating at next visit, we will plan to increase dose. Advised him to keep his follow-up with pulmonolog y in March. 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 [id number] SHAQ CARRILLO MD [facility] [address] [place] [address] 04/19/2025 10:52:33 04/25/2025 08:04:40 Seropositive rheumatoid arthritis 388058048 M05.9 [id number] Previously seen at the [facility]. [...] also be worsened by activity and positionin ethan. Has done PT for right shoulder with [...] continue with Plaquenil. 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 Drug therapy finding 309 778172 Z79.899 [id number] Advised pt to double check with his eye doctor about updated Plaquenil eye exam. Long-term current use of immunosuppressive drug 946753722 Z79.60 1717015 Tolerating Cellcept well without acute side effects. Will update monitoring labs today.If labs are ok, will increase Cellcept to 1000 mg BID Long-term current use of systemic steroid 2175336422 94468 Z79.52 [id number] Has one more week of Prednisone taper left from Pulmonolog y for his ILD. He has no acute side effects. 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 Took Valtrex. Health Concerns Section Related Observation LastModified by Organization Detai ls LastModified Time None Recorded Concern Status LastModified by Organization Details LastModified Time None Recorded Advance Directives Directive None Recorded Payers Insurance Date Sequence Insurance Name Policy Number Policy Rodriguez Covered Member ID Rodriguez Member ID Guarantor Name 05/04/2025 1 [employer] (MEDICARE REPLACEMENT/ ADVANTAGE - PPO) Chacha Kumari [id number] Chacha Kumari Notes Date Note Type Note Provider Name and Address Organization Details Recorded Time 11/12/2024 text/html ROS as noted in the HPI Self-referred to establish care for arthritis. Here with , who is also seeing me today as new patient. 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 Denies any rash, oral ulcers, alopecia, pleuritic pain or shortness of breath, photosensitivity, dry mouth, Raynaud's phenomenon. Reports dry eyes after having had cataract surgery. Follows with eye doctor in [place]. No history of psoriasis.No history of inflammatory bowel disease.No history of inflammatory eye disease.No history of recurrent infections, fevers.Denies family history of autoimmune disease or lung issues. SHAQ CARRILLO MD [address] [place] [address], [phone], [facility] 11/14/2024 12:31:27 01/18/2025 text/html ROS as noted in the HPI Last seen 11/12/24. Here with . Since last visit, Plaquenil started for treatment of seropositive rheumatoid arthritis. Rheumatoid factor was elevated 246, CCP negative. He has been doing physical therapy for right shoulder pain. He denies side effects with Plaquenil use, does not feel effect quite yet. Symptoms of pain, stiffness are worse on right side, also affecting right wrist, hand. Morning stiffness is not lasting too long, 1 hour or less. He tries to run his hands and wrist under warm water in the morning.Rituximab was denied for his interstitial lung disease. Prednisone was never started for his interstitial lung disease.Requesting steroid injection in right shoulder.He has follow-up with pulmonology in March.Shortness of breath and cough has been worse.Denies rashes, acute vision changes, blood in urine or stool, constitutional symptoms. From initial HPI 11/12/24:Self-referre d to establish care for arthritis. Here with , who is also seeing me today as new patient. 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 Denies any rash, oral ulcers, alopecia, pleuritic pain or shortness of breath, photosensitivity, dry mouth, Raynaud's phenomenon. Reports dry eyes after having had cataract surgery. Follows with eye doctor in [place]. No history of psoriasis.No history of inflammatory bowel disease.No history of inflammatory eye disease.No history of recurrent infections, fevers.Denies family history of autoimmune disease or lung issues. SHAQ CARRILLO MD [facility] [place], [phone], [facility] 01/18/2025 18:38:09 04/19/2025 text/html ROS as noted in the [...] Was recommended to establish with a new washcloth folder, given long-term use of Methotrexate.Has been on [...] does not know the dose.Reports that the recruiter specialist had also recommended to see rheumatology. Denies any rash, oral ulcers, alopecia, pleuritic pain or shortness of breath, photosensitivity, dry mouth, Raynaud's phenomenon. Reports dry eyes after having had cataract surgery. Follows with eye doctor in [place]. No history of psoriasis.No history of inflammatory bowel disease.No history of inflammatory eye disease.No history of recurrent infections, fevers.Denies family history of autoimmune disease or lung issues. SHAQ CARRILLO MD [facility] [place], [phone], [facility] 04/19/2025 17:19:22
== END 2025-05-19 23:59 | disposition home or self-care (01) ==
LOC: RT 12:42
PROVIDERS: PCP Family Medicine; Visit Provider Internal Medicine Pulmonary Disease
DX: R06.02 Shortness of breath (principal)
CPT/HCPCS: 94618